=== PATIENT | male | born 1960 | race Caucasian/White ===

== ENCOUNTER 2016-07-02 21:47 | Inpatient (IN) | payer OTHER ==
[~2016-07-02] VITALS: Ht 182.9 cm; Wt 93.0 kg
--- NOTE | 2016-07-02 22:08 | NUR ---
Informed waiting has been performed.
--- NOTE | 2016-07-02 22:08 | NUR ---
TRIAGE: PT TO ER C/C SHAKING CHILLS ON THURSDAY NIGHT INTO THURSDAY. FELT BETTER AND THEN AGAIN FELT SICK AGAIN TODAY. REPORTS ALSO HAD SOME NAUSEA THIS AFTERNOON. DR HOPSON INTO TRIAGE TO EVAL PATIENT.
--- NOTE | 2016-07-02 22:10 | ED AMS/SEIZURE/WEAK/DIZZY ---
History of Present Illness General Chief Complaint: General Adult Stated Complaint: BODY ACHES, CHILLS Source: patient, family Exam Limitations: no limitations Vital Signs & Intake/Output Vital Signs & Intake/Output Vital Signs Date Time Temp Pulse Resp B/P Pulse O2 O2 Flow FiO2 Ox Delivery Rate 07/03 0527 97.2 94 20 116/73 97 Room Air 07/03 0030 100.0 07/03 0030 100.0 116 16 106/55 93 Room Air 07/02 2240 101.6 07/02 2204 99.8 135 20 129/75 95 Room Air ED Intake and Output 07/03 0000 07/02 1200 Intake Total Output Total Balance Patient 205 lb Weight Allergies Coded Allergies: No Known Allergies (07/02/16) Reconcile Medications No Known Home Medications Triage Note: TRIAGE: PT TO ER C/C SHAKING [place]ILLS ON THURSDAY NIGHT INTO THURSDAY. FELT BETTER AND THEN AGAIN FELT SICK AGAIN TODAY. REPORTS ALSO HAD SOME NAUSEA THIS AFTERNOON. DR HERNANDEZ INTO TRIAGE TO EVAL PATIENT. Triage Nurses Notes Reviewed? yes Onset: Gradual Duration: hour(s):, waxing and waning Timing: recent history Injury Environment: home Severity: moderate Modifying Factors: Improves With: rest. Associated Symptoms: rigors, chills HPI: 55 yo gentleman presents with nausea, rigors, shaking chills, "in my whole body" that started yesterday. He noted that he was able to work over the weekend without problem. He shares that he has no fever, phlegm, sputum, chest pain. He had transient dyspnea, " I felt body aches all over." Past History Travel History Traveled to [place] past 21 day No Medical History Any Pertinent Medical History? 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 No Review of Systems Review of Systems Constitutional: Reports: no symptoms. EENTM: Reports: no symptoms. Respiratory: Reports: no symptoms. Cardiovascular: Reports: no symptoms. GI: Reports: no symptoms. Genitourinary: Reports: no symptoms. Musculoskeletal: Reports: no symptoms. Skin: Reports: no symptoms. Neurological/Psychological: Reports: no symptoms. Hematologic/Endocrine: Reports: no symptoms. Immunologic/Allergic: Reports: no symptoms. All Other Systems: Reviewed and Negative Physical Exam Physical Exam General Appearance: well developed/nourished, no apparent distress Head: atraumatic, normal appearance Eyes: Bilateral: normal appearance. Ears, Nose, Throat: normal pharynx, normal ENT inspection Neck: normal inspection, supple, full range of motion Respiratory: normal breath sounds, chest non-tender, no respiratory distress, quiet respiration, lungs clear Cardiovascular: regular rate/rhythm Gastrointestinal: normal bowel sounds, soft, non-tender, no organomegaly Rectal: normal exam, normal rectal tone, heme negative stool Back: normal inspection Extremities: normal range of motion Neurologic/Psych: no motor/sensory deficits, awake, alert, oriented x 3 Skin: intact, normal color, warm/dry Core Measures ACS in differential dx? No CVA/TIA Diagnosis: No Severe Sepsis Present: No Septic Shock Present: No Progress Differential Diagnosis: viral syndrome, mi, pneumonia vs other. Plan of Care: Orders Procedure Date/time Status CBC WITHOUT DIFFERENTIAL 07/04 599 Active BASIC ELECTROLYTES PLUS BUN&CR 07/04 599 Active Nothing by Mouth 07/03 B Active PROTHROMBIN TIME 07/03 599 Active HEPATIC FUNCTION PANEL 07/03 599 Active HEPATITIS PANEL 07/03 06 Active LACTIC ACID 07/03 0557 Active US-LIMITED ABDOMEN 07/03 0257 Active LACTIC ACID 07/03 0257 Complete ECHOCARDIOGRAM 07/03 0257 Active CULTURE,URINE 07/03 0247 Active BLOOD CULTURE 07/03 0247 Active URINALYSIS 07/03 0247 Active TRC EVALUATION (GEN) 07/03 0208 Active Saline Lock 07/03 0208 Active Pathway - chart 07/03 0208 Active House Staff 07/03 0208 Active Code Status 07/03 0208 Active Add-on Test (ER Only) 07/03 0141 Active Patient Data 07/03 0125 Active Saline Lock 07/03 106 Active Misc Message 07/03 106 Active ED Holding Orders 07/03 106 Active Vital Signs 07/03 106 Active Code Status 07/03 0107 Complete Admit to inpatient 07/03 0106 Active Add-on Test (ER Only) 07/03 0031 Active Lab Add-on Test 07/03 UNK Active VTE Mechanical Prophylaxis 07/03 UNK Active Vital Signs 07/03 UNK Active Intake & Output 07/03 UNK Active Intake & Output 07/02 2249 Active PARTIAL THROMBOPLASTIN TIME 07/02 2224 Complete PROTHROMBIN TIME 07/02 2224 Complete THYROID STIMULATING HORMONE 07/02 2222 Active GLYCOSYLATED HGB 07/02 2222 Active GAMMA GLUTAMYL TRANSFERASE 07/02 2222 Active FREE T4 07/02 2222 Active ETHANOL 07/02 2222 Active DIRECT BILIRUBIN 07/02 2222 Active RAPID VIRAL INFLUENZA A 07/02 2208 Complete TROPONIN LEVEL 07/02 2208 Active D-DIMER 07/02 2208 Complete COMPREHENSIVE METABOLIC PANEL 07/02 2208 Active CBC WITHOUT DIFFERENTIAL 07/02 2208 Complete EKG 07/02 2208 Active Current Medications Sig/Santiago Start time Last Medication Dose Stop Time Status Admin Ibuprofen 600 MG Q6P PRN 07/03 214 AC (Motrin) Oxycodone HCl 10 MG Q6P PRN 07/03 214 AC (Roxicodone) Laboratory Tests 07/03/166: Lactic Acid 2.1 07/02/162224: PT 14.2 H, INR 1.36 H, APTT 28, D-Dimer 3017 H, CBC w Diff NO MAN DIFF REQ, RBC 4.84, MCV 97.2 H, MCH 32.9 H, RDW 12.6, MPV 7.4, Gran % 90.5 H, Lymphocytes % 2.4 L, Monocytes % 7.0, Eosinophils % 0, Basophils % 0.1, Absolute Granulocytes 11.8 H, Absolute Lymphocytes 0.3 L, Absolute Monocytes 0.9 H, Absolute Eosinophils 0, Absolute Basophils 0, PUBS MCHC 33.8 07/02/162222: Hemoglobin A1c Pending 07/02/162222: Anion Gap 13, Estimated GFR 53 L, BUN/Creatinine Ratio 12.1, Glucose 259 H, Calcium 8.8, Total Bilirubin 2.3 H, Direct Bilirubin 1.6 H, GGT 360 H, AST 427 H, ALT 358 H, Alkaline Phosphatase 131 H, Troponin I < 0.01, Total Protein 6.6, Albumin 3.7, Globulin 2.9, Albumin/Globulin Ratio 1.3, TSH Pending, Free T4 Pending, Serum Alcohol < 10.0 Microbiology 07/03 424 BLOOD: Blood Culture - RECD 07/03 0416 BLOOD: Blood Culture - RECD 07/03 0247 URINE ROUT: Urine Culture - COLB Diagnostic Imaging: Viewed by Me: Radiology Read, CT Scan. Discussed w/RAD: Radiology Read, CT Scan. Radiology Impression: ct angio chest... no pE, abd/pelvic ct... duodenal diverticuli, gall stones, no sign of inflammation... full report below. CXR Impression: no acute abnormality, no infiltrates, normal size heart, normal mediastinum Initial ED EKG: sinus tach Comments: PATIENT: LALIT ALMARAZ PRESENT AGE: 55 PATIENT ACCOUNT NO: [id number] : 61 LOCATION: ER ORDERING PHYSICIAN: VALENTINA HERNANDEZ MD SERVICE DATE: 07/02/16 EXAM TYPE: CAT - CT ABD & PELVIS W IV CONTRAST EXAMINATION: CT ABDOMEN AND PELVIS WITH CONTRAST CLINICAL INFORMATION: Fever. Elevated LFTs. Dyspnea. Positive d-dimer. COMPARISON: None. TECHNIQUE: Multidetector volumetric imaging was performed of the abdomen and pelvis before and after the IV administration of 93 mL of Optiray 320 intravenous contrast. Sagittal and coronal reformatted images were obtained on the technologist's workstation. DLP: 1130 mGy-cm. FINDINGS: LUNG BASES: Mild dependent atelectasis. LIVER, GALLBLADDER, AND BILIARY TREE: The liver is normal in size, shape, and attenuation. No focal hepatic lesion or biliary ductal dilatation is present. Small gallstones are multiple gallstones are present in the gallbladder, measuring up to 1.1 cm in diameter. Gallbladder is otherwise unremarkable. No acute inflammatory changes are identified. PANCREAS: Normal SPLEEN: Unremarkable. ADRENAL GLANDS: Unremarkable. KIDNEYS AND URETERS: The kidneys are normal in size, shape, and attenuation. A few parapelvic cysts are present in the left kidney. No suspicious focal lesions are identified. Minimal perinephric stranding. No hydronephrosis, hydroureter, or calculi seen. BLADDER: Unremarkable. GASTROINTESTINAL TRACT: Stomach, small bowel, and colon are normal in caliber. No bowel wall thickening or surrounding inflammatory changes are identified. Appendix is normal. There is a 2.5 cm diverticulum at the medial aspect of the second portion of the duodenum. No additional diverticula are identified at the duodenum. ABDOMINAL WALL: No significant hernia is appreciated. LYMPH NODES: Normal. VASCULAR: Unremarkable. PELVIC VISCERA: Central calcifications are present in the prostate gland. Prostate and seminal vesicles are otherwise unremarkable. OSSEOUS STRUCTURES: There is mild to moderate degenerative disc disease in the lower lumbar spine. No acute fracture or malalignment. IMPRESSION: 1. No acute intra-abdominal or intrapelvic abnormalities. There is cholelithiasis, though without CT findings of acute cholecystitis. Consider correlation with ultrasound if there is additional clinical concern for gallbladder disease as ultrasound would be more sensitive for early findings of cholecystitis. 2. A duodenal diverticulum. No acute bowel findings. DICTATED BY: CHAUNCEY DAVIS MD DATE/TIME DICTATED:07/03/166 TOBACCO CLASSER:HUEY DATE/TIME TRANSCRIBED:07/03/166 CONFIDENTIAL, DO NOT COPY WITHOUT APPROPRIATE AUTHORIZATION. <Electronically signed in Other Vendor System> SIGNED BY: CHAUNCEY DAVIS MD 07/03/16 0028 PATIENT: LALIT ALMARAZ PRESENT AGE: 55 PATIENT ACCOUNT NO: [id number] : 61 LOCATION: [facility] ORDERING PHYSICIAN: VALENTINA HERNANDEZ MD SERVICE DATE: 07/02/16 EXAM TYPE: CAT - CTA CHEST-PULMONARY EMBOLISM EXAMINATION: CT ANGIOGRAM OF THE CHEST WITH AND WITHOUT CONTRAST (CT PULMONARY ANGIOGRAM FOR PE) CLINICAL INFORMATION: Fever. Elevated LFTs. Dyspnea. Positive d-dimer. COMPARISON: No pertinent prior studies are available for comparison. TECHNIQUE: Prior to contrast administration, noncontrast localization images were obtained. Subsequently, multidetector volumetric imaging was performed from the thoracic inlet to below the diaphragms following the administration of 93 mL Optiray 08/30/2019 intravenous contrast. Examination is limited due to bolus timing. The concentration of contrast material within the pulmonary arteries is relatively dilute, limiting sensitivity and specificity for segmental and subsegmental emboli. No contrast reaction reported Sagittal, coronal, and MIP oblique sagittal reformatted images were obtained on the CT workstation, uploaded to PACS, and reviewed. Total exam dose-length product 1129 mGy-cm FINDINGS: PULMONARY ARTERIES: There is an acute filling defect within the pulmonary artery at the medial basilar segment of the right lower lobe, best seen on image 328/470 series 3. This is most compatible with an acute pulmonary embolism. No additional emboli are identified. As noted above, sensitivity for small peripheral emboli within the segmental and subsegmental branches is limited. No large central pulmonary emboli. Pulmonary arteries are normal in caliber. THORACIC AORTA: No aneurysm or dissection. LUNG: Linear atelectasis is present in the lower lobes. No consolidation, bronchiectasis, or stone focal pulmonary nodules. PLEURA: No pleural effusion or pneumothorax. MEDIASTINUM: Normal heart size. No pericardial effusion. No hilar or mediastinal lymphadenopathy. No evidence of septal bowing or right heart strain. CHEST WALL/AXILLA: No axillary or internal mammary lymphadenopathy. OSSEOUS STRUCTURES: Mild multilevel degenerative spondylosis. Bridging osteophytes are present in the lower thoracic spine. No acute fractures. UPPER ABDOMEN: Cholelithiasis is again noted. No reflux of contrast into the hepatic veins to suggest elevated right heart pressures. IMPRESSION: Acute segmental pulmonary embolism in the medial basilar segment of the right lower lobe. No additional emboli. Sensitivity for small peripheral emboli is limited by study technique. No evidence of elevated right heart pressures. VTE: positive This critical result was discussed by telephone with Dr. Hernandez at 12:30 AM on 07/03/2016 . DICTATED BY: CHAUNCEY DAVIS MD DATE/TIME DICTATED:07/03/1623 TOBACCO CLASSER:HUEY DATE/TIME TRANSCRIBED:07/03/1623 CONFIDENTIAL, DO NOT COPY WITHOUT APPROPRIATE AUTHORIZATION. <Electronically signed in Other Vendor System> SIGNED BY: CHAUNCEY DAVIS MD 07/03/1637 PATIENT: LALIT ALMARAZ PRESENT AGE: 55 PATIENT ACCOUNT NO: [id number] : 62 LOCATION: [facility] ORDERING PHYSICIAN: VALENTINA HERNANDEZ MD SERVICE DATE: 07/02/16 EXAM TYPE: RAD - XRY-PORTABLE CHEST XRAY EXAMINATION: XR PORTABLE CHEST CLINICAL INFORMATION: Fever and chills. COMPARISON: None. TECHNIQUE: Portable view of the chest was obtained. FINDINGS: No significant abnormality is noted involving the heart, lungs, mediastinum, bony thorax or soft tissues. IMPRESSION: No acute change of the chest. DICTATED BY: RASHAAD VELASQUEZ MD DATE/TIME DICTATED:07/02/162326 TOBACCO CLASSER:BEARD DATE/TIME TRANSCRIBED:07/02/162326 CONFIDENTIAL, DO NOT COPY WITHOUT APPROPRIATE AUTHORIZATION. <Electronically signed in Other Vendor System> SIGNED BY: RASHAAD VELASQUEZ MD 07/02/16 4428 Departure Departure Disposition: STILL A PATIENT Condition: Stable Clinical Impression Primary Impression: Pulmonary emboli Secondary Impressions: Acute hepatitis Referrals: HUI THOMAS MD (PCP/Family) Departure Forms: Customer Survey General Discharge Information Prescriptions: Current Visit Scripts No Known Home Medications Comments discussed with dr. mendez (surgical attending) who will evaluate patient this am. Critical Care Note Critical Care Note Critical Care Time: 30-74 min
[2016-07-02 22:33] LABS: ABSOLUTE BASOPHIL COUNT 0 /CUMM (0.0-0.2); ABSOLUTE EOSINOPHIL COUNT 0 /CUMM (0.0-0.7); ABSOLUTE GRANULOCYTE CT 11.8 /CUMM (1.4-6.5); ABSOLUTE LYMPH COUNT 0.3 /CUMM (1.2-3.4); ABSOLUTE MONOCYTE COUNT 0.9 /CUMM (0.10-0.60); BASOPHIL % 0.1 % (0.0-2.0); EOSINOPHIL % 0 % (0-5); MEAN CORPUSCULAR HGB 32.9 PG (27.0-31.0); MEAN CORPUSCULAR HGB CONC 33.8 G/DL (33.0-37.0); MEAN CORPUSCULAR VOLUME 97.2 FL (80.0-94.0); MEAN PLATELET VOLUME 7.4 FL (7.4-10.4); PLATELET COUNT 172 /CUMM (130-400); RBC DISTRIBUTION WIDTH 12.6 % (11.5-14.5); RED BLOOD CELL CT 4.84 /CUMM (4.70-6.10); WHITE BLOOD CELL COUNT 13.1 /CUMM (4.8-10.8)
--- NOTE | 2016-07-02 22:39 | NUR ---
TEMP RECHECK 101.6 FLU SWAB OBTAINED/SENT TO LAB PT MEDICATED WITH IBUPROFEN PER ORDERS DR HOPSON.
--- NOTE | 2016-07-02 22:48 | NUR ---
APPRECIATE TRIAGE NOTE. PT TO ROOM 9 VIA STRETCHER FROM [facility]. INFORMED WAITING PERFORMED.
[2016-07-02 23:01] LABS: GRANULOCYTE % 90.5 % (42.2-75.2)
--- NOTE | 2016-07-02 23:31 | RADIOLOGY REPORT ---
EXAMINATION: XR PORTABLE CHEST CLINICAL INFORMATION: Fever and chills. COMPARISON: None. TECHNIQUE: Portable view of the chest was obtained. FINDINGS: No significant abnormality is noted involving the heart, lungs, mediastinum, bony thorax or soft tissues. IMPRESSION: No acute change of the chest.
--- NOTE | 2016-07-02 23:34 | NUR ---
PT LEFT FOR CAT SCAN
--- NOTE | 2016-07-03 00:10 | NUR ---
RETD FROM CT
--- NOTE | 2016-07-03 00:28 | NUR ---
DENIES ANY PAIN OR DISCOMFORT. NS UP WO IV TYLENOL UP.
--- NOTE | 2016-07-03 00:28 | CT SCAN REPORT ---
EXAMINATION: CT ABDOMEN AND PELVIS WITH CONTRAST CLINICAL INFORMATION: Fever. Elevated LFTs. Dyspnea. Positive d-dimer. COMPARISON: None. TECHNIQUE: Multidetector volumetric imaging was performed of the abdomen and pelvis before and after the IV administration of 93 mL of Optiray 320 intravenous contrast. Sagittal and coronal reformatted images were obtained on the technologist's workstation. DLP: 1130 mGy-cm. FINDINGS: LUNG BASES: Mild dependent atelectasis. LIVER, GALLBLADDER, AND BILIARY TREE: The liver is normal in size, shape, and attenuation. No focal hepatic lesion or biliary ductal dilatation is present. Small gallstones are multiple gallstones are present in the gallbladder, measuring up to 1.1 cm in diameter. Gallbladder is otherwise unremarkable. No acute inflammatory changes are identified. PANCREAS: Normal SPLEEN: Unremarkable. ADRENAL GLANDS: Unremarkable. KIDNEYS AND URETERS: The kidneys are normal in size, shape, and attenuation. A few parapelvic cysts are present in the left kidney. No suspicious focal lesions are identified. Minimal perinephric stranding. No hydronephrosis, hydroureter, or calculi seen. BLADDER: Unremarkable. GASTROINTESTINAL TRACT: Stomach, small bowel, and colon are normal in caliber. No bowel wall thickening or surrounding inflammatory changes are identified. Appendix is normal. There is a 2.5 cm diverticulum at the medial aspect of the second portion of the duodenum. No additional diverticula are identified at the duodenum. ABDOMINAL WALL: No significant hernia is appreciated. LYMPH NODES: Normal. VASCULAR: Unremarkable. PELVIC VISCERA: Central calcifications are present in the prostate gland. Prostate and seminal vesicles are otherwise unremarkable. OSSEOUS STRUCTURES: There is mild to moderate degenerative disc disease in the lower lumbar spine. No acute fracture or malalignment. IMPRESSION: 1. No acute intra-abdominal or intrapelvic abnormalities. There is cholelithiasis, though without CT findings of acute cholecystitis. Consider correlation with ultrasound if there is additional clinical concern for gallbladder disease as ultrasound would be more sensitive for early findings of cholecystitis. 2. A duodenal diverticulum. No acute bowel findings.
--- NOTE | 2016-07-03 00:38 | CT SCAN REPORT ---
EXAMINATION: CT ANGIOGRAM OF THE CHEST WITH AND WITHOUT CONTRAST (CT PULMONARY ANGIOGRAM FOR PE) CLINICAL INFORMATION: Fever. Elevated LFTs. Dyspnea. Positive d-dimer. COMPARISON: No pertinent prior studies are available for comparison. TECHNIQUE: Prior to contrast administration, noncontrast localization images were obtained. Subsequently, multidetector volumetric imaging was performed from the thoracic inlet to below the diaphragms following the administration of 93 mL Optiray 08/30/2019 intravenous contrast. Examination is limited due to bolus timing. The concentration of contrast material within the pulmonary arteries is relatively dilute, limiting sensitivity and specificity for segmental and subsegmental emboli. No contrast reaction reported Sagittal, coronal, and MIP oblique sagittal reformatted images were obtained on the CT workstation, uploaded to PACS, and reviewed. Total exam dose-length product 1129 mGy-cm FINDINGS: PULMONARY ARTERIES: There is an acute filling defect within the pulmonary artery at the medial basilar segment of the right lower lobe, best seen on image 328/470 series 3. This is most compatible with an acute pulmonary embolism. No additional emboli are identified. As noted above, sensitivity for small peripheral emboli within the segmental and subsegmental branches is limited. No large central pulmonary emboli. Pulmonary arteries are normal in caliber. THORACIC AORTA: No aneurysm or dissection. LUNG: Linear atelectasis is present in the lower lobes. No consolidation, bronchiectasis, or stone focal pulmonary nodules. PLEURA: No pleural effusion or pneumothorax. MEDIASTINUM: Normal heart size. No pericardial effusion. No hilar or mediastinal lymphadenopathy. No evidence of septal bowing or right heart strain. CHEST WALL/AXILLA: No axillary or internal mammary lymphadenopathy. OSSEOUS STRUCTURES: Mild multilevel degenerative spondylosis. Bridging osteophytes are present in the lower thoracic spine. No acute fractures. UPPER ABDOMEN: Cholelithiasis is again noted. No reflux of contrast into the hepatic veins to suggest elevated right heart pressures. IMPRESSION: Acute segmental pulmonary embolism in the medial basilar segment of the right lower lobe. No additional emboli. Sensitivity for small peripheral emboli is limited by study technique. No evidence of elevated right heart pressures. VTE: positive This critical result was discussed by telephone with Dr. Hernandez at 12:30 AM on 07/03/2016 .
[2016-07-03 01:06] LABS: PT 14.2 SEC (9.4-12.5); PTT 28 SEC (25-37)
--- NOTE | 2016-07-03 01:51 | History & Physical ---
FLORECITA ALSTON MD 07/03/16 0150: General Information and HPI MD Statement: I have seen and personally examined LALIT ALMARAZ and documented this H&P. The patient is a 55 year old M who presented with a patient stated chief complaint of [fever,chills,nausea]. Source of Information: patient Exam Limitations: no limitations History of Present Illness: 55-year-old male with no PMH, presented to the ED for chills and nausea. On Thursday night around 3am, he started having chills that lasted until 5am. He did not go to work on Thursday and took dayquil and nyquil. He was feeling sluggish all day, and thought he had the flu. He also had soreness and stiffness in his joints including his back, shoulders, legs. On Thursday, he went to work, and when he got off work around 5pm, he started having nausea, and chills. Denied vomiting and has tolerated food well all day. On , he denies fever at home (but did not take his temp), but does feel hot intermittently (he was shirtless when we examined him and was comfortable that way), denies any yellowing of the eyes, chest pain, palpitations, shortness of breath, cough, pleuritic chest pain, abdominal pain, vomiting, diarrhea, constipation, changes in stool, blood in stool, soniya colored stool, dark urine, leg swelling, leg pain. He does have a bruise over the medial side of his left thigh because the TV fell on him last week. He weighed 240 lbs a year ago and has lost 30 lbs intentionally through a change in his diet. He had colonoscopy done 2 years ago and is normal in findings. No significant family history. Denies history of heart disease, or clots in the family. 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 He lives in [place] with his and 12-year-old son. He does not smoke, and denies illicit drug use. He drinks alcohol ocassionally. He has no allergies and not on any meds. In the ED his max temp was 101.6, pulse up to 135, rr 16-20, bp 106-129/55-75, and satting at 93% on RA. Allergies/Medications Allergies: Coded Allergies: No Known Allergies (07/02/16) Home Med list No Known Home Medications Past History Travel History Traveled to [place] past 21 day No Medical History Neurological: NONE EENT: NONE Cardiovascular: NONE Respiratory: NONE Gastrointestinal: NONE Hepatic: NONE Renal: NONE Musculoskeletal: NONE Psychiatric: NONE Endocrine: NONE Blood Disorders: NONE Cancer(s): NONE RESEARCH PROGRAM MANAGER/Reproductive: NONE Surgical History Surgical History: TONSILLECTOMY Past Family/Social History Psychosocial History Where do you live? Home Who Do You Live With? spouse, child Services at Home: None Primary Language: Upper Sorbian Smoking Status: Never Smoked ETOH Use: occasional use Illicit Drug Use: denies illicit drug use Functional Ability ADLs Independent: dressing, eating, toileting, bathing. Ambulation: independent IADLs Independent: shopping, housework, finances, food prep, telephone, transportation , medication admin. Review of Systems Review of Systems Constitutional: Reports: chills, fever. EENTM: Denies: visual changes. Cardiovascular: Denies: chest pain, edema, palpitations. Respiratory: Denies: cough, hemoptysis, orthopnea, short of breath. GI: Reports: nausea. Denies: abdominal pain, bloating, constipation, diarrhea, bloody stool, changes in stool, vomiting. Genitourinary: Denies: dysuria. Exam & Diagnostic Data Last 24 Hrs of Vital Signs/I&O Vital Signs Date Time Temp Pulse Resp B/P Pulse O2 O2 Flow FiO2 Ox Delivery Rate 07/03 0030 100.0 07/03 0030 100.0 116 16 106/55 93 Room Air 07/02 2240 101.6 07/02 2204 99.8 135 20 129/75 95 Room Air Intake & Output 07/03 0800 07/03 0000 07/02 1600 Intake Total Output Total Balance Patient 92.986 kg Weight Physical Exam General Appearance Alert, Oriented X3, Cooperative, No Acute Distress Skin healing bruise approximately 10 cm in diameter over medial left thigh HEENT Atraumatic, PERRLA, EOMI, dry mucous membrane , mild scleral icterus, digna face Neck Supple, No JVD, +2 Carotid Pulse wo Bruit, No LAD Lymphatic Axillary nl, Cervical nl Cardiovascular Regular Rate, Normal S1, Normal S2, No Murmurs, Gallops, Rubs Lungs Clear to Auscultation, Normal Air Movement Abdomen Normal Bowel Sounds, Soft, No Tenderness, No Hepatospenomegaly, No Masses, de la cruz negative Neurological Normal Speech, Normal Tone Extremities No Edema, Normal Pulses, No Tenderness/Swelling Vascular Normal Pulses Last 24 Hrs of Labs/Contreras: Laboratory Tests 07/02/162224: PT 14.2 H, INR 1.36 H, APTT 28, D-Dimer 3017 H, CBC w Diff NO MAN DIFF REQ, RBC 4.84, MCV 97.2 H, MCH 32.9 H, RDW 12.6, MPV 7.4, Gran % 90.5 H, Lymphocytes % 2.4 L, Monocytes % 7.0, Eosinophils % 0, Basophils % 0.1, Absolute Granulocytes 11.8 H, Absolute Lymphocytes 0.3 L, Absolute Monocytes 0.9 H, Absolute Eosinophils 0, Absolute Basophils 0, PUBS MCHC 33.8 07/02/162222: Anion Gap 13, Estimated GFR 53 L, BUN/Creatinine Ratio 12.1, Glucose 259 H, Calcium 8.8, Total Bilirubin 2.3 H, Direct Bilirubin 1.6 H, AST 427 H, ALT 358 H, Alkaline Phosphatase 131 H, Troponin I < 0.01, Total Protein 6.6, Albumin 3.7, Globulin 2.9, Albumin/Globulin Ratio 1.3 Microbiology 07/03 246 URINE ROUT: Urine Culture - ORD 07/03 246 BLOOD: Blood Culture - ORD 07/03 246 BLOOD: Blood Culture - ORD Diagnostic Data CXR Results CXR: No acute change of the chest. Other Results Chest CTA Acute segmental pulmonary embolism in the medial basilar segment of the right lower lobe. No additional emboli. Sensitivity for small peripheral emboli is limited by study technique. No evidence of elevated right heart pressures. Abd CT IMPRESSION: 1. No acute intra-abdominal or intrapelvic abnormalities. There is cholelithiasis, though without CT findings of acute cholecystitis. Consider correlation with ultrasound if there is additional clinical concern for gallbladder disease as ultrasound would be more sensitive for early findings of cholecystitis. 2. A duodenal diverticulum. No acute bowel findings. Assessment/Plan Assessment: 55-year-old male with no PMH, presented to the ED for chills and nausea, found to have acute PE on CTA along with choleliathiasis without cholecystitis, with abnormal LFTs including AST, ALT, alk phos, direct bilirubin, total bilirubin, and white count. # Acute PE - Bruise on medial left thigh from trauma last week. He might have used that extremity less. * Continue heparin * Echocardiogram * Doppler of BL lower extremity * heme consult placed for possible coagulopathy * Consider pulm consult in am * Consider cardio consult in am # ? Ascending cholangitis. Choleliathiasis with fever, chills and leukocytosis of 13.1, with abnormal LFTs worrisome for acute cholangitis * ED consulted surgery and they recommended RUQ US. Reconsult surgery in am if necessary * IV abx with unasyn * lactate level 2.1 * GI consult placed # Abnormal kidney functions most likely due to dehydration - BUN/Cr 18/1.4 (previous cr 1) * IV fluids NS 500ml bolus and followed by maintenance at 150ml/hr as pt NPO for US Diet: NPO (pending US RUQ) DVT ppx: IV heparin FULL CODE As Ranked By This Provider Problem List: 1. Pulmonary embolism 2. Transaminitis Core Measures/Miscellaneous Acute Coronary Syndrome ACS Diagnosis: No Cerebrovascular Accident CVA/TIA Diagnosis: No Congestive Heart Failure CHF Diagnosis: No Venous Thromboembolism VTE Risk Factors: Acute medical illness, Age > 40 VTE Prophylaxis Ordered Inpt: Mech & Pharm No Mech VTE prophylaxis d/t: No contraindications No VTE Pharm Prophylaxis d/t: No contraindications VTE Diagnosis: Yes VTE Type: Pulmonary Embolism VTE Confirmed by (Test): CT CHEST ANGIOGRAM Severe Sepsis Severe Sepsis Present: No Septic Shock Septic Shock Present: No Miscellaneous Documentation Attending Case Discussed With: ASHLEY LEMUS MD Primary Care Physician: HUI THOMAS MD Patient sees these Specialists none Level of Patient Care: Telemetry ARSEN COHEN 07/03/16 0441: Resident Review Statement Resident Statement: examined this patient, discussed with internet architect, agreed with internet architect, reviewed EMR data (avail), reviewed images, amended to note Other Findings: This is 55-year-old male with no PMH, presented to the ED for chills and nausea. On Thursday night around 3am, he started to have fever, chills, feeling nauseated, that is also associated with joint and back pain. The patient stated the symptoms subside on the morning, and on next day he started to have some chills and feeling tired so he stayed home laying in his couch all day. Patient stated that he ate today without any problems. Patient reports large but was in his left lower extremity status post trauma by his TV. He denies any yellowing of the eyes, chest pain, palpitations, shortness of breath, cough, pleuritic chest pain, abdominal pain, vomiting, diarrhea, constipation, changes in stool, blood in stool, soniya colored stool, dark urine, lower extremity swelling or pain. Patient had a recorded fever In the ED with maximum of 101.6, slightly borderline blood pressure and tachycardia, patient in room air. Physical examination, lab and imaging as above. Problem list: -Unprovoked pulmonary embolism -Choleliathiasis /cholangitis -Fever, chills and leukocytosis that could be due to PE versus Choleliathiasis / cholangitis -Transaminitis, hyperbilirubinemia -Acute kidney injury most likely due to dehydration -Pseudo-Hyponatremia due to hyperglycemia Plan: -Admit patient to telemetry floor -Vitals every shift -Continue the patient heparin drip -Start the patient on IV fluid hydration -We'll start the patient on IV Unasyn -Blood culture, urine culture and urine analysis -Keep the patient nothing by mouth -Abdominal ultrasound -Gastroenterology and surgery consultation -Echocardiogram, check TSH and HA1c -Trend lactic acid, Trend the patient LFTs -Repeat CBC and basic panel electrolytes in the morning, INR -Hematology consultation in a.m. -Pain pathway -DVT prophylaxis on heparin drip -Full code ASHLEY LEMUS 07/03/16 0739: Attending MD Review Statement Attending Statement Attending MD Statement: examined this patient, discuss w/resident/PA/ASSISTANT FEDERAL PUBLIC DEFENDER, agreed w/resident/PA/ASSISTANT FEDERAL PUBLIC DEFENDER, reviewed EMR data (avail), reviewed images, amended to note Attending Assessment/Plan: CC: Chills/rigors nausea PMHX : None, not on any medications Patient comes with symptoms of severe chills, rigors associated with nausea. Patient had one episode yesterday, he took some Tylenol and rested at home. He went to work today, but after returning he had an episode of chills where he had to take 2-3 blankets, was followed by feeling warm. It was associated with nausea, no vomiting, no chest pain. Patient denies any abdominal pain, sputum production, urinary symptoms, skin rashes and reactions. No loss of consciousness. 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 Vitals: T max 101.6, tachycardia, RR, BP, O2 saturation within acceptable range. On exam a O 3, anxious but comfortable, neck supple, no lymphadenopathy, mucosa dry, no JVD RS: Clear air entry bilaterally present. Abdomen: Soft, NT, ND, no rebound, no De La Cruz sign, bowel sounds decreased. CVS: S1-S2, RRR. Neurologically intact, no obvious skin rashes or inflammations. He has a bruise on left thigh on medial aspect (trauma) Labs: WBC 13.1, neutrophils 90%, glucose 259, creatinine 1.4, anion gap 13, alkaline phosphatase 131, AST 427, ALT 358, bilirubin 2.3, direct bilirubin 1.6 CTA shows acute segmental pulmonary embolism in medial basilar segment of right lower lobe CT abdomen and pelvis with IV contrast: Small gallstones are multiple gallstones are present in the gallbladder, measuring up to 1.1 cm in diameter. Gallbladder is otherwise unremarkable. o bowel wall thickening or surrounding inflammatory changes are identified. Appendix is normal. There is a 2.5 cm diverticulum at the medial aspect of the second portion of the duodenum. A and P #1 sepsis: Patient has fever, leukocytosis, elevated transaminases, elevated bilirubin. De La Cruz's sign negative but CT abdomen shows evidence of cholelithiasis, CT not being the best test, obtain ultrasound abdomen right upper quadrant to rule out any cholecystitis, CBD dilatation. Get blood cultures , urine cultures, continue hydration with normal saline, start Unasyn, trend lactate. No other source of infection identified on complete ROS. Check GGT, alcohol level #2 acute segmental PE on right side: This appears to be unprovoked, detailed history did not provide any inciting factors. Currently on heparin, obtain 2-D echo in a.m., to rule out cardiac strain. I could not discuss oral anticoagulation plan with patient during night, should be addressed in a.m. ER suggested telemetry monitoring for given PE, if no acute events may be transferred to [facility] according to clinical assessment. #3 creatinine 1.4: Baseline not known, may have some volume contraction related to infection, continue gentle hydration, repeat BMP in a.m. #4 hyperglycemia: Blood glucose 259, patient does not have any history of diabetes. Sepsis can increase blood sugar but check hemoglobin A1c to rule out diabetes. #5 surgery was consulted in ER for duodenal diverticulum. #6 continue adequate pain management with pain pathway.
--- NOTE | 2016-07-03 04:25 | NUR ---
N/S 500 ML BOLUS GIIVEN BLD CULTURES X 2 DRAWN AND SENT
--- NOTE | 2016-07-03 05:08 | NUR ---
UNASYN 3 GM HUNG
--- NOTE | 2016-07-03 05:12 | NUR ---
CRITICAL TEST RESULTS [id number] LALIT ALMARAZ 55 M TESTS AND RESULTS: LACTIC ACID 2.1 Results received and read back by: TONJA LARA Results received date and time: 07/03/16 0512 The following provider was notified of the results, and read the results back: ATTENDING Notified date and time: 07/03/16 at 0500
--- NOTE | 2016-07-03 06:39 | PN- Housestaff ---
PORFIRIO KUMARDANA 07/03/16 0639: Subjective Follow-up For: -PE -choledocolithiasis s/p stent placement. Complaints: no complaints Subjective: I have seen and examined the patient today morning, he is stable , no abdominal pain, he is NPO for ERCP, GI on board. Review of Systems Constitutional: Reports: see HPI. Denies: chills, diaphoresis, fever, malaise, weakness. EENTM: Denies: blurred vision, double vision, visual changes, eye pain, eye drainage, eye tearing. Cardiovascular: Denies: chest pain, edema, orthopena, palpitations. Respiratory: Denies: cough, hemoptysis, orthopnea, short of breath, sputum production. Gastrointestinal: Denies: abdominal pain, bloating, constipation, diarrhea, distention. Genitourinary: Reports: no symptoms. Musculoskeletal: Reports: no symptoms. Objective Last 24 Hrs of Vital Signs/I&O Vital Signs Date Time Temp Pulse Resp B/P Pulse O2 O2 Flow FiO2 Ox Delivery Rate 07/03 0527 97.2 94 20 116/73 97 Room Air 07/03 0030 100.0 07/03 0030 100.0 116 16 106/55 93 Room Air 07/02 2240 101.6 07/02 2204 99.8 135 20 129/75 95 Room Air Intake & Output 07/03 0800 07/03 0000 07/02 1600 Intake Total Output Total Balance Patient 92.986 kg Weight Physical Exam General Appearance: Alert, Oriented X3, Cooperative, No Acute Distress Skin: No Rashes, No Breakdown, no jaundice HEENT: Atraumatic, PERRLA, EOMI Neck: Supple, No JVD, No thryomegaly Cardiovascular: Regular Rate, Normal S1, Normal S2, No Murmurs Lungs: Clear to Auscultation, Normal Air Movement Abdomen: Normal Bowel Sounds, Soft, No Tenderness Neurological: Strength at 5/5 X4 Ext, Normal Tone, Sensation Intact, Cranial Nerves 3-12 NL Extremities: No Clubbing, No Cyanosis, No Edema, Normal Pulses Vascular: Normal Pulses Current Medications: Current Medications Sig/Santiago Start time Last Medication Dose Route Stop Time Status Admin Acetaminophen 0 .STK-MED ONE 07/03 0024 DC IV Acetaminophen 1,000 MG ONCE ONE 07/02 2330 DC 01/05 N/A 1 UNIT IV 07/02 2344 0030 Ampicillin Sodium/ 0 .STK-MED ONE 07/03 0500 DC Sulbactam Sodium .ROUTE Ampicillin Sodium/ 0 .STK-MED ONE 07/03 0442 DC Sulbactam Sodium .ROUTE Ampicillin Sodium/ 3,000 MG Q6H 07/03 0330 AC 07/03 Sulbactam Sodium IV 0508 Sodium Chloride 100 ML Heparin Sodium 4,000 UNIT ONCE ONE 07/03 0115 DC 07/03 (Porcine) IV 07/03 011 0118 Heparin Sodium 0 .STK-MED ONE 07/03 0110 DC (Porcine) .ROUTE Heparin Sodium/ 25,000 UNIT Q24H 07/03 0045 AC 07/03 Dextrose IV 0120 Dextrose/Water 500 ML Ibuprofen 600 MG Q6P PRN 07/03 0215 AC PO Ibuprofen 800 MG ONCE ONE 07/02 2245 DC 07/02 PO 07/02 224 2239 Ibuprofen 0 .STK-MED ONE 07/02 2237 DC PO Oxycodone HCl 10 MG Q6P PRN 07/03 0215 AC PO Sodium Chloride 500 ML BOLUS ONE 07/03 0330 DC 07/03 IV 07/03 0429 0434 Sodium Chloride 1,000 ML .Q6H40M 07/03 0200 AC 07/03 IV 0508 Sodium Chloride 1,000 ML BOLUS ONE 07/02 2330 DC 07/03 IV 07/03 0029 0030 Last 24 Hrs of Lab/Contreras Results Last 24 Hrs of Labs/Mics: Laboratory Tests 07/03/16 0416: Lactic Acid 2.1 07/02/162224: PT 14.2 H, INR 1.36 H, APTT 28, D-Dimer 3017 H, CBC w Diff NO MAN DIFF REQ, RBC 4.84, MCV 97.2 H, MCH 32.9 H, RDW 12.6, MPV 7.4, Gran % 90.5 H, Lymphocytes % 2.4 L, Monocytes % 7.0, Eosinophils % 0, Basophils % 0.1, Absolute Granulocytes 11.8 H, Absolute Lymphocytes 0.3 L, Absolute Monocytes 0.9 H, Absolute Eosinophils 0, Absolute Basophils 0, PUBS MCHC 33.8 07/02/16 222: Hemoglobin A1c Pending 07/02/162222: Anion Gap 13, Estimated GFR 53 L, BUN/Creatinine Ratio 12.1, Glucose 259 H, Calcium 8.8, Total Bilirubin 2.3 H, Direct Bilirubin 1.6 H, GGT 360 H, AST 427 H, ALT 358 H, Alkaline Phosphatase 131 H, Troponin I < 0.01, Total Protein 6.6, Albumin 3.7, Globulin 2.9, Albumin/Globulin Ratio 1.3, TSH 0.634, Free T4 1.50, Serum Alcohol < 10.0 Microbiology 07/035 BLOOD: Blood Culture - RECD 07/03 415 BLOOD: Blood Culture - RECD 07/03 024 URINE ROUT: Urine Culture - COLB Lines/Diet/Fluids Restraints: none Assessment/Plan Assessment: This is a 55 YO male who came in last night i.e 07/02/2015 with chief complaint of chills and rigor associated with some nausea on and off since four days prior to admission. He was febrile till 101.6 on presentation, otherwise stable, didnot have any abdominal pain, tenderness or guarding, white coutn of 13.1, elevated LFT's and GGT, ricky - 2.3, direct - 1.6 and was found ot have unprovoked PE in medical basilar segment ,alognwith dialted CBD on CT scan with gallstones. Problem List alongwith assesement and plan #1 Fever + chills + white count + elevated lft's,most likely 2/[address] iv unasyn ct monitoring cbc, bep and lft's GI consult appreciated. Patient is NPO for ERCP in the afternoon and would most likely have stent placement. continue monitoring closely for signs of any sepsis. Will obtain b/l lower extremtiy venous doppler ot rule out DVT and ultrasoung doppler of the portal vein to rule out thrombosis. #2 acute segmental PE on right side: -unprovoked, etiology unknown. No known risk factors for PE. Will dopple b/l lower extremtiy to rule out DVT. Hematology consult appreciated. hypercoagulabilty work up as outpatient. plan for abdominal dopple in am to rule out protal vein thromobsisi. Continue iv heparin Echo pending to rule out right heart strain. Will discuss PO AC in am depeding on clinical status. #3 creatinine 1.4:Most likely 2/2 to dehydratio 2/2 to sepsis will continue to monitor ct hydration. #4 hyperglycemia:psble 2/2 to infection v/s New onset DM, will check HBa1c DVT Px : heparin FC mild PP Problem List: 1. Pulmonary embolism 2. Transaminitis 3. Acute hepatitis Pain Ratin Pain Location: na Pain Goal: Remain pain free Pain Plan: tyelnol Tomorrow's Labs & Rationales: cbc, bep, lft's LESLI FREGOSO MD 07/03/16 0954: Attending MD Review Statement Attending Statement Attending MD Statement: examined this patient, discuss w/resident/PA/LOCKER OPERATOR, agreed w/resident/PA/LOCKER OPERATOR, discussed with family, discussed with nursing Attending Assessment/Plan: 55-year-old male with no significant past medical history who came in with acute onset of fever and chills and was found to be febrile to 101.6. He had a white count of 13,000 with an elevated total bili of 2.3 and a transaminitis. He also had a CTA done which is positive for PE in his right lung. He has no obvious risk factors for PE. He doesn't appear to have any history suggestive of malignancy, no recent travel or immobilization and no hypercoagulable state in the family. Appreciate hematology evaluation. For now we have him on IV heparin. He is nothing by mouth, on IV Unasyn and an ultrasound is pending to clarify whether this is a cholecystitis. Clinically and at least on exam he doesn't have any right upper quadrant tenderness. Will also get a Doppler ultrasound of his portal vein to rule out portal vein thrombosis and follow-up from there.
--- NOTE | 2016-07-03 07:35 | NUR ---
LABS DRAWN AND SENT AT 0731. SST,BLUE,LAV,WU AND PINK TOP DRAWN.
--- NOTE | 2016-07-03 07:41 | Admission Certification ---
Admission Certification Certification Statement - As attending physician, I certify that at the time of - admission, based on clinical presentation, severity of - symptoms, need for further diagnostic testing and - therapeutic interventions, and risk of adverse outcomes - without in-hospital treatment, in my clinical assessment, - this patient requires an acute hospital stay for a minimum - of two nights or longer. I have also considered psychsocial - factors such as support system, advanced age, financial - issues, cognitive issues, and failed out-patient treatments, - past re-admission history, safety of patient, and lack of - compliance as applicable. Specific rationale supporting this admission is: Acute PE, sepsis
[2016-07-03 08:17] LABS: PT 16.4 SEC (9.4-12.5)
[2016-07-03 08:20] LABS: PTT 102 SEC (25-37)
--- NOTE | 2016-07-03 08:22 | NUR ---
CRITICAL TEST RESULTS [id number] LALIT ALMARAZ 55 M TESTS AND RESULTS: PTT 102 Results received and read back by: MARIA LUISA DYER Results received date and time: 07/03/16 0822 The following provider was notified of the results, and read the results back: DR. KUMAR Notified date and time: 07/03/16 at 0822
--- NOTE | 2016-07-03 08:27 | NUR ---
PTT 102, DR. KUMAR AWARE, HEPARIN STOPPED FOR 1HR PER PROTOCOL. RESIDENTS AT BEDSIDE EVALUATING PATIENT
--- NOTE | 2016-07-03 09:11 | Cons- Hematology ---
General Information and HPI Consulting Request Date of Consult: 07/03/16 Requested By: LESLI FREGOSO MD Reason for Consult: Pulmonary embolism Source of Information: patient, old records Exam Limitations: no limitations History of Present Illness: Mr. Michel is a 55-year-old male without significant medical history who presents to the hospital with chills, nausea, and fatigue. He was in his normal state of health until Thursday when he started having chills. He continues to feel worse and stayed home from work on Thursday. He had increasing fatigue and myalgia. On Thursday, he continues to have chills and nausea. He states he felt hot in addition to the chills. He denies any shortness of breath, chest pain, or abdominal pain. He had no diarrhea or constipation. He was still pretty active. In the ED, he was noted to be febrile up to 101.6 with HR of 135. Imaging with CTA of the chest demonstrated an acute segmental pulmonary embolism in the medial basilar segment of the right lower lobe. CT of the abdomen did not demonstrate any intraabdominal process. He was started on heparin drip. Currently, he denies any issues. He reports no recent travel, prolonged period of immobility, or surgery/procedure. He has no family history of thrombosis, stroke, [place], or miscarriages. Allergies/Medications Allergies: Coded Allergies: No Known Allergies (07/02/16) Home Med List: No Known Home Medications Current Medications: Current Medications Sig/Santiago Start time Last Medication Dose Route Stop Time Status Admin Acetaminophen 0 .STK-MED ONE 07/03 0024 DC IV Acetaminophen 1,000 MG ONCE ONE 07/02 2330 DC 07/03 N/A 1 UNIT IV 07/02 2344 0030 Ampicillin Sodium/ 0 .STK-MED ONE 07/03 0500 DC Sulbactam Sodium .ROUTE Ampicillin Sodium/ 0 .STK-MED ONE 07/03 0442 DC Sulbactam Sodium .ROUTE Ampicillin Sodium/ 3,000 MG Q6H 07/03 0330 AC 07/03 Sulbactam Sodium IV 0508 Sodium Chloride 100 ML Heparin Sodium 4,000 UNIT ONCE ONE 07/03 0115 DC 07/03 (Porcine) IV 07/03 0116 0118 Heparin Sodium 0 .STK-MED ONE 07/03 0110 DC (Porcine) .ROUTE Heparin Sodium/ 25,000 UNIT Q24H 07/03 0045 AC 07/03 Dextrose IV 0120 Dextrose/Water 500 ML Ibuprofen 600 MG Q6P PRN 07/03 0215 AC PO Ibuprofen 800 MG ONCE ONE 07/02 2244 DC 07/02 PO 07/02 2245 2239 Ibuprofen 0 .STK-MED ONE 07/02 2236 DC PO Oxycodone HCl 10 MG Q6P PRN 07/03 0215 AC PO Sodium Chloride 500 ML BOLUS ONE 07/03 0330 DC 07/03 IV 07/03 0429 0434 Sodium Chloride 1,000 ML .Q6H40M 07/03 0200 AC 07/03 IV 0508 Sodium Chloride 1,000 ML BOLUS ONE 07/02 2330 DC 07/03 IV 07/03 0029 0030 Review of Systems Review of Systems Constitutional: Reports: chills, fever, malaise. Denies: weakness, unexplained weight loss. Cardiovascular: Denies: chest pain, orthopena, peripheral edema. Respiratory: Denies: short of breath, sputum production, wheezing. GI: Reports: nausea. Denies: diarrhea, melena, bloody stool. Genitourinary: Denies: dysuria, hematuria. Musculoskeletal: Reports: muscle pain. Neurological/Psychological: Denies: confusion. Hematologic/Endocrine: Denies: bruising, bleeding. Immunologic/Allergic: Denies: lymphadenopathy. 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 Home Who Do You Live With? spouse, child Services at Home: None Primary Language: Telugu Smoking Status: Never Smoked ETOH Use: occasional use Illicit Drug Use: denies illicit drug use Functional Ability ADLs Independent: dressing, eating, toileting, bathing. Ambulation: independent IADLs Independent: shopping, housework, finances, food prep, telephone, transportation , medication admin. Exam & Diagnostic Data Vital Signs and I&O Vital Signs Date Time Temp Pulse Resp B/P Pulse O2 O2 Flow FiO2 Ox Delivery Rate 07/03 526 97.2 94 20 116/73 97 Room Air 07/03 0030 100.0 07/03 0030 100.0 116 16 106/55 93 Room Air 07/02 2240 101.6 07/02 2204 99.8 135 20 129/75 95 Room Air Intake & Output 07/03 1600 07/03 0800 07/03 0000 Intake Total Output Total Balance Patient 92.986 kg Weight Physical Exam General Appearance: alert, awake, comfortable Head: atraumatic, normal appearance Eyes: Bilateral: PERRL. Ears, Nose, Throat: normal pharynx Neck: normal inspection Respiratory: normal breath sounds, chest non-tender, no respiratory distress Cardiovascular: tachycardia Gastrointestinal: normal bowel sounds, soft, non-tender, no organomegaly Extremities: normal inspection, no edema Neurologic/Psych: awake, alert, oriented x 3 Skin: intact, normal color, warm/dry Lymphatic: no anterior cervical ravi Last 48 Hours of Lab Results: Laboratory Tests 07/03 07/03 07/03 07/03 0732 0732 0600 0416 Chemistry Lactic Acid (0.7 - 2.1 mmol/L) 1.7 2.1 Total Bilirubin (0.2 - 1.3 mg/dL) 3.4 H Direct Bilirubin (< 0.4 mg/dL) 2.5 H AST (17 - 59 U/L) 272 H ALT (21 - 72 U/L) 356 H Alkaline Phosphatase (< 127 U/L) 122 Total Protein (6.3 - 8.2 g/dL) 5.6 L Albumin (3.5 - 5.0 g/dL) 2.9 L Coagulation PT (9.4 - 12.5 SEC) 16.4 H Cancelled INR (0.90 - 1.17) 1.57 H Cancelled APTT (25 - 37 SEC) 102 *H Serology Hepatitis A IgM Ab (NONREACTIVE) Pending Hep Bs Antigen (NONREACTIVE) NONREACTIVE Hep B Core IgM Ab Conf (NONREACTIVE) Pending Hepatitis C Antibody (NONREACTIVE) Pending 07/02 07/02 07/02 2225 2223 2223 Chemistry Sodium (137 - 145 mmol/L) 134 L Potassium (3.5 - 5.1 mmol/L) 4.0 Chloride (98 - 107 mmol/L) 95 L Carbon Dioxide (22 - 30 mmol/L) 26 Anion Gap (5 - 16) 13 BUN (9 - 20 mg/dL) 17 Creatinine (0.7 - 1.2 mg/dL) 1.4 H Estimated GFR (>60 ml/min) 53 L BUN/Creatinine Ratio (7 - 25 %) 12.1 Glucose (65 - 99 mg/dL) 259 H Hemoglobin A1c Pending Calcium (8.4 - 10.2 mg/dL) 8.8 Total Bilirubin (0.2 - 1.3 mg/dL) 2.3 H Direct Bilirubin (< 0.4 mg/dL) 1.6 H GGT (15 - 73 U/L) 360 H AST (17 - 59 U/L) 427 H ALT (21 - 72 U/L) 358 H Alkaline Phosphatase (< 127 U/L) 131 H Troponin I (<0.11 ng/ml) < 0.01 Total Protein (6.3 - 8.2 g/dL) 6.6 Albumin (3.5 - 5.0 g/dL) 3.7 Globulin (1.9 - 4.2 gm/dL) 2.9 Albumin/Globulin Ratio (1.1 - 2.2 %) 1.3 TSH (0.270 - 4.200 uIU/mL) 0.634 Free T4 (0.64 - 1.79 ng/dL) 1.50 Coagulation PT (9.4 - 12.5 SEC) 14.2 H INR (0.90 - 1.17) 1.36 H APTT (25 - 37 SEC) 28 D-Dimer (70 - 232 ng/ml) 3017 H Hematology CBC w Diff NO MAN DIFF REQ WBC (4.8 - 10.8 /CUMM) 13.1 H RBC (4.70 - 6.10 /CUMM) 4.84 Hgb (14.0 - 18.0 G/DL) 15.9 Hct (42 - 52 %) 47.0 MCV (80.0 - 94.0 FL) 97.2 H MCH (27.0 - 31.0 PG) 32.9 H RDW (11.5 - 14.5 %) 12.6 Plt Count (130 - 400 /CUMM) 172 MPV (7.4 - 10.4 FL) 7.4 Gran % (42.2 - 75.2 %) 90.5 H Lymphocytes % (20.5 - 51.1 %) 2.4 L Monocytes % (1.7 - 9.3 %) 7.0 Eosinophils % (0 - 5 %) 0 Basophils % (0.0 - 2.0 %) 0.1 Absolute Granulocytes (1.4 - 6.5 /CUMM) 11.8 H Absolute Lymphocytes (1.2 - 3.4 /CUMM) 0.3 L Absolute Monocytes (0.10 - 0.60 /CUMM) 0.9 H Absolute Eosinophils (0.0 - 0.7 /CUMM) 0 Absolute Basophils (0.0 - 0.2 /CUMM) 0 PUBS MCHC (33.0 - 37.0 G/DL) 33.8 Toxicology Serum Alcohol (<10 MG/DL) < 10.0 Imaging/Other Studies: Chest CTA 07/02/2016: Acute segmental pulmonary embolism in the medial basilar segment of the right lower lobe. No additional emboli. Sensitivity for small peripheral emboli is limited by study technique. No evidence of elevated right heart pressures. Abdomen/pelvis CT 07/02/2016: 1. No acute intra-abdominal or intrapelvic abnormalities. There is cholelithiasis, though without CT findings of acute cholecystitis. Consider correlation with ultrasound if there is additional clinical concern for gallbladder disease as ultrasound would be more sensitive for early findings of cholecystitis. 2. A duodenal diverticulum. No acute bowel findings. Assessment/Plan Assessment: Mr. Michel is a 55-year-old male presents with fever, chills, and nausea to the ED and was noted to have RLL pulmonary embolism. In the ED, he was noted to have elevated LFT including bilirubin, elevated WBC, and PE. Etiology of his PE is unclear at the moment. His main risk factor is potentially inflammatory response from infectious etiology given his fever. He has no other risk factors for thrombosis. He may need a hypercoagulable work up done and can be done as an outpatient. Management of the thrombosis would not change at the moment. If he is started on warfarin, protein C and S can be sent prior. He should get evaluated with lower extremity doppler. With regard to his LFT, this may be related to cholithiasis. He may need US of the RUQ. Other potential etiology would be portal thrombosis given his thrombosis history. He is on antibiotic at the moment. Surgery and GI consult is pending. He should be continue on heparin for now and transition to oral if no surgery/ procedure. Recommendations: 1. Doppler ultrasound of lower extremity to evaluate for DVT 2. Hypercoagulabe work up as an outpatient (if starting on warfarin, get protein C and S level prior) 3. Doppler ultrasound of abdomen for elevated LFT 4. Continue anticoagulation and transition to oral anticoagulant 5. Follow up as outpatient Problem List: 1. Pulmonary embolism 2. Transaminitis Other Findings/Comments: Please call [phone] with any questions or concerns Consult Acknowledgment - Thank you for your consult request.
--- NOTE | 2016-07-03 09:39 | NUR ---
HEPARIN DRIP STOPPED X 1 HOUR, RESTARTED AT 16U/KG/HR, CURRENTLY RUNNING AT 23ML/HR. IV UNASYSN 3GM INFUSING WITHOUT DIFFICULTY AT THIS TIME, NS AT 150ML/HR MAINTAINED WITHOUT DIFFICULTY AT THIS TIME. FAMILY REMAINS AT BEDSIDE. PT HAS NO COMPLAINTS AT THIS TIME.
--- NOTE | 2016-07-03 09:53 | ULTRASOUND REPORT ---
EXAMINATION: US ABDOMEN LIMITED CLINICAL INFORMATION: Fever, chills, transaminitis. COMPARISON: None TECHNIQUE: Real-time imaging of the right upper quadrant abdominal viscera. FINDINGS: PANCREAS: Obscured due to overlying bowel gas. LIVER: The liver demonstrates normal size, contour and echogenicity. No focal lesion or intrahepatic biliary duct dilatation. GALLBLADDER: There is a 1.2 cm shadowing calculus in the gallbladder lumen. No abnormal gallbladder wall thickening or pericholecystic fluid. Negative sonographic De La Cruz sign. COMMON BILE DUCT: Measures up to 1.1 cm in diameter distally. RIGHT KIDNEY: No hydronephrosis. No renal calculi or focal parenchymal lesions. The kidney measures 11.2 cm in maximum dimension. FREE FLUID: None. IMPRESSION: 1. Dilated common bile duct measuring up to 1.1 cm in diameter distally. This could be secondary to a distal obstructing lesion or choledocholithiasis. No intrahepatic biliary ductal dilatation. Consider further assessment with MRCP or ERCP. 2. Cholelithiasis without additional sonographic findings of cholecystitis.
--- NOTE | 2016-07-03 11:09 | NUR ---
SPOKE WITH GI NURSE X 2 THIS AM, "ERCP AROUND 2:30PM, CAN STAY ON THE HEPARIN DRIP, I WILL CALL WITH A DEFINITE TIME, OR WHEN WE ARE GOING TO SEND FOR HIM". NPO MAINTAINED. PT HAS NO COMPLAINTS AT THIS TIME. REMAINS AT BEDSIDE.
--- NOTE | 2016-07-03 11:23 | NUR ---
PT AMBULATORY TO BATHROOM, GAIT STABLE.
--- NOTE | 2016-07-03 11:45 | NUR ---
PT ADMITTED TO ROOM 174-2 ROOM NOT READY AT THIS TIME
--- NOTE | 2016-07-03 12:50 | Cons- Gastroenterology ---
General Information and HPI Consulting Request Date of Consult: 07/03/16 Requested By: LESLI FREGOSO MD Reason for Consult: Increased LFTs, gallstones, rule out cholangitis; nausea. Source of Information: patient Exam Limitations: no limitations History of Present Illness: Mr. Michel is a 55 year old male with no significant previous medical history who presented to [facility] night with complaints of nausea and fevers. He has been having chills and nausea with myalgias and arthraglias on Thursday. He has not have any abdominal pain or vomiting. He was able to go to work on Thursday, but his chills and nausea persisted Thursday night and into so he came to the ER for further evaluation. He has been having normal bowel movements without any brbpr, melena, diarrhea, constipation or soniya colored stool. He hasn't had any abdominal pain over the past week, but he does note that he has had intermittent RUQ pain over the past several years that was exacerbated by eating fatty foods. In the ED he was febrile and had abnormal LFTs. He was started on IV unasyn and given tylenol for the fever with defervesence. He was also noted to have a markedly elevated D-Dimer and a cta showed that he had a pulmonary embolism for which he has been started on IV heparin. Allergies/Medications Allergies: Coded Allergies: No Known Allergies (07/02/16) Home Med List: Ciprofloxacin HCl (Cipro) 500 MG TABLET 1 TAB PO BID GALL BLADDER INFECTION Enoxaparin Sodium (Lovenox) 40 MG/0.4 ML SYRINGE 140 MG SC DAILY BLOOD THINNER Warfarin Sodium (Coumadin) 5 MG TABLET 1 TAB PO DAILY BLOOD THINNER Current Medications: Current Medications Sig/Santiago Start time Last Medication Dose Route Stop Time Status Admin Acetaminophen 0 .STK-MED ONE 07/03 0024 DC IV Acetaminophen 1,000 MG ONCE ONE 07/02 2330 DC 07/03 N/A 1 UNIT IV 07/024 0030 Ampicillin Sodium/ 0 .STK-MED ONE 07/03 0500 DC Sulbactam Sodium .ROUTE Ampicillin Sodium/ 0 .STK-MED ONE 07/03 0442 DC Sulbactam Sodium .ROUTE Ampicillin Sodium/ 3,000 MG Q6H 07/03 0330 AC 07/03 Sulbactam Sodium IV 0930 Sodium Chloride 100 ML Heparin Sodium 4,000 UNIT ONCE ONE 07/03 0115 DC 07/03 (Porcine) IV 07/03 0116 0118 Heparin Sodium 0 .STK-MED ONE 07/03 0110 DC (Porcine) .ROUTE Heparin Sodium/ 25,000 UNIT Q24H 07/03 0045 AC 07/03 Dextrose IV 0120 Dextrose/Water 500 ML Ibuprofen 600 MG Q6P PRN 07/03 0215 DC PO Ibuprofen 800 MG ONCE ONE 07/02 2245 DC 07/02 PO 07/02 2245 2239 Ibuprofen 0 .STK-MED ONE 07/02 2237 DC PO Oxycodone HCl 10 MG Q6P PRN 07/03 0215 AC PO Sodium Chloride 500 ML BOLUS ONE 07/03 0330 DC 07/03 IV 07/03 0429 0434 Sodium Chloride 1,000 ML .Q6H40M 07/03 0200 AC 07/03 IV 0931 Sodium Chloride 1,000 ML BOLUS ONE 07/02 2330 DC 07/03 IV 07/03 0029 0030 Past History Travel History Traveled to [place] past 21 day No Medical History Neurological: NONE EENT: NONE Cardiovascular: NONE Respiratory: NONE Gastrointestinal: NONE Hepatic: NONE Renal: NONE Musculoskeletal: NONE Psychiatric: NONE Endocrine: NONE Blood Disorders: NONE 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 Home Who Do You Live With? spouse, child Services at Home: None Primary Language: Polish Smoking Status: Never Smoked ETOH Use: occasional use Illicit Drug Use: denies illicit drug use Functional Ability ADLs Independent: dressing, eating, toileting, bathing. Ambulation: independent IADLs Independent: shopping, housework, finances, food prep, telephone, transportation , medication admin. Review of Systems Review of Systems Constitutional: Reports: chills, fever, malaise, weakness. Denies: unexplained weight loss. EENTM: Denies: no symptoms, icterus. Cardiovascular: Denies: no symptoms. Respiratory: Denies: no symptoms. GI: Reports: see HPI. Genitourinary: Denies: no symptoms. Musculoskeletal: Denies: no symptoms. Skin: Denies: no symptoms. Neurological/Psychological: Denies: no symptoms. Hematologic/Endocrine: Denies: no symptoms. Immunologic/Allergic: Denies: no symptoms. All Other Systems: Reviewed and Negative Exam & Diagnostic Data Vital Signs and I&O Vital Signs Date Time Temp Pulse Resp B/P Pulse O2 O2 Flow FiO2 Ox Delivery Rate 07/03 05 97.2 94 20 116/73 97 Room Air 07/03 0030 100.0 07/03 003 100.0 116 16 106/55 93 Room Air 07/02 2240 101.6 07/02 2204 99.8 135 20 129/75 95 Room Air Intake & Output 07/03 040 Intake Total Output Total Balance Patient 205 lb Weight Physical Exam General Appearance: well developed/nourished, no apparent distress, alert, awake Head: atraumatic, normal appearance Eyes: Bilateral: other (sclearal icterus). Ears, Nose, Throat: normal pharynx, normal ENT inspection Neck: normal inspection, supple, full range of motion Respiratory: normal breath sounds, chest non-tender, no respiratory distress Cardiovascular: regular rate/rhythm Gastrointestinal: normal bowel sounds, soft, non-tender Rectal: deferred Back: normal inspection, normal range of motion Extremities: normal inspection, normal capillary refill, no edema Neurologic/Psych: no motor/sensory deficits, awake, alert, oriented x 3 Skin: intact, normal color, warm/dry Results Pertinent Lab Results: Laboratory Tests 07/03 07/03 07/03 07/03 0732 0732 0600 0416 Chemistry Lactic Acid (0.7 - 2.1 mmol/L) 1.7 2.1 Total Bilirubin (0.2 - 1.3 mg/dL) 3.4 H Direct Bilirubin (< 0.4 mg/dL) 2.5 H AST (17 - 59 U/L) 272 H ALT (21 - 72 U/L) 356 H Alkaline Phosphatase (< 127 U/L) 122 Total Protein (6.3 - 8.2 g/dL) 5.6 L Albumin (3.5 - 5.0 g/dL) 2.9 L Coagulation PT (9.4 - 12.5 SEC) 16.4 H Cancelled INR (0.90 - 1.17) 1.57 H Cancelled APTT (25 - 37 SEC) 102 *H Serology Hepatitis A IgM Ab (NONREACTIVE) Pending Hep Bs Antigen (NONREACTIVE) Pending Hep B Core IgM Ab Conf (NONREACTIVE) Pending Hepatitis C Antibody (NONREACTIVE) Pending 07/02 07/02 07/02 2225 2223 2223 Chemistry Sodium (137 - 145 mmol/L) 134 L Potassium (3.5 - 5.1 mmol/L) 4.0 Chloride (98 - 107 mmol/L) 95 L Carbon Dioxide (22 - 30 mmol/L) 26 Anion Gap (5 - 16) 13 BUN (9 - 20 mg/dL) 17 Creatinine (0.7 - 1.2 mg/dL) 1.4 H Estimated GFR (>60 ml/min) 53 L BUN/Creatinine Ratio (7 - 25 %) 12.1 Glucose (65 - 99 mg/dL) 259 H Hemoglobin A1c Pending Calcium (8.4 - 10.2 mg/dL) 8.8 Total Bilirubin (0.2 - 1.3 mg/dL) 2.3 H Direct Bilirubin (< 0.4 mg/dL) 1.6 H GGT (15 - 73 U/L) 360 H AST (17 - 59 U/L) 427 H ALT (21 - 72 U/L) 358 H Alkaline Phosphatase (< 127 U/L) 131 H Troponin I (<0.11 ng/ml) < 0.01 Total Protein (6.3 - 8.2 g/dL) 6.6 Albumin (3.5 - 5.0 g/dL) 3.7 Globulin (1.9 - 4.2 gm/dL) 2.9 Albumin/Globulin Ratio (1.1 - 2.2 %) 1.3 TSH (0.270 - 4.200 uIU/mL) 0.634 Free T4 (0.64 - 1.79 ng/dL) 1.50 Coagulation PT (9.4 - 12.5 SEC) 14.2 H INR (0.90 - 1.17) 1.36 H APTT (25 - 37 SEC) 28 D-Dimer (70 - 232 ng/ml) 3017 H Hematology CBC w Diff NO MAN DIFF REQ WBC (4.8 - 10.8 /CUMM) 13.1 H RBC (4.70 - 6.10 /CUMM) 4.84 Hgb (14.0 - 18.0 G/DL) 15.9 Hct (42 - 52 %) 47.0 MCV (80.0 - 94.0 FL) 97.2 H MCH (27.0 - 31.0 PG) 32.9 H RDW (11.5 - 14.5 %) 12.6 Plt Count (130 - 400 /CUMM) 172 MPV (7.4 - 10.4 FL) 7.4 Gran % (42.2 - 75.2 %) 90.5 H Lymphocytes % (20.5 - 51.1 %) 2.4 L Monocytes % (1.7 - 9.3 %) 7.0 Eosinophils % (0 - 5 %) 0 Basophils % (0.0 - 2.0 %) 0.1 Absolute Granulocytes (1.4 - 6.5 /CUMM) 11.8 H Absolute Lymphocytes (1.2 - 3.4 /CUMM) 0.3 L Absolute Monocytes (0.10 - 0.60 /CUMM) 0.9 H Absolute Eosinophils (0.0 - 0.7 /CUMM) 0 Absolute Basophils (0.0 - 0.2 /CUMM) 0 PUBS MCHC (33.0 - 37.0 G/DL) 33.8 Toxicology Serum Alcohol (<10 MG/DL) < 10.0 Imaging/Other Studies: ct scan: FINDINGS: LUNG BASES: Mild dependent atelectasis. LIVER, GALLBLADDER, AND BILIARY TREE: The liver is normal in size, shape, and attenuation. No focal hepatic lesion or biliary ductal dilatation is present. Small gallstones are multiple gallstones are present in the gallbladder, measuring up to 1.1 cm in diameter. Gallbladder is otherwise unremarkable. No acute inflammatory changes are identified. PANCREAS: Normal SPLEEN: Unremarkable. ADRENAL GLANDS: Unremarkable. KIDNEYS AND URETERS: The kidneys are normal in size, shape, and attenuation. A few parapelvic cysts are present in the left kidney. No suspicious focal lesions are identified. Minimal perinephric stranding. No hydronephrosis, hydroureter, or calculi seen. BLADDER: Unremarkable. GASTROINTESTINAL TRACT: Stomach, small bowel, and colon are normal in caliber. No bowel wall thickening or surrounding inflammatory changes are identified. Appendix is normal. There is a 2.5 cm diverticulum at the medial aspect of the second portion of the duodenum. No additional diverticula are identified at the duodenum. ABDOMINAL WALL: No significant hernia is appreciated. LYMPH NODES: Normal. VASCULAR: Unremarkable. PELVIC VISCERA: Central calcifications are present in the prostate gland. Prostate and seminal vesicles are otherwise unremarkable. OSSEOUS STRUCTURES: There is mild to moderate degenerative disc disease in the lower lumbar spine. No acute fracture or malalignment. IMPRESSION: 1. No acute intra-abdominal or intrapelvic abnormalities. There is cholelithiasis, though without CT findings of acute cholecystitis. Consider correlation with ultrasound if there is additional clinical concern for gallbladder disease as ultrasound would be more sensitive for early findings of cholecystitis. 2. A duodenal diverticulum. No acute bowel findings. Assessment/Plan Assessment/Recommendations: Assesssment: Mr. Michel is a 55 year old male with no significant PMH who presents with fevers and was found to have a PE on a ct angiogram of the chest and also to have increased LFTs with fevers. With gallstones on imaging and intermittent biliary colic the fevers and increased LFTs are likely secondary to cholangitis even though he doesn't have RUQ pain now. His bilirubin this morning is increasing so while he has defervesced on Unasyn an ERCP should be pursued to relieve any obtstruction of his biliary tree. As he has been anticoagulated for the PE a sphincterotomy will not be able to be perfromed, but a stent can still be placed to relieve any obstruction. It is a bit unusual that he doesn't have any abdominal pain that one would expect with passing gallstones, but consdiering the increased LFTs, fevers and gallstones on ct scan cholangitis is still the likely diagnosis. Considering the lack of pain and the PE though an underlying malignancy making him hypercoaguable is possible and should be ruled out although it is encouraging that no obvious pancreatic mass was seen on his ct scan. Recommendations: 1. Keep NPO 2. Continue unasyn 3. Follow up cultures 4. Notify GI for signs of septic shock or any changes in his mental status 5. Will arrange for a therapeutic ERCP with a plan to place a biliary stent for later this afternoon. I will continue to follow this patient and make further recommendations pending the results of the ERCP and his clinical course. Problem List: 1. Pulmonary embolism 2. Transaminitis 3. Acute hepatitis Copies To: HUI THOMAS MD Consult Acknowledgment - Thank you for your consult request.
--- NOTE | 2016-07-03 13:17 | NUR ---
REPORT CALLED TO TELE GENIA WONG CALLED FOR TRANSPORT TO TELE ROOM # [id number].
--- NOTE | 2016-07-03 13:22 | NUR ---
ACCUCHECK: 116. 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
[2016-07-03 14:34] VITALS: BP 124/64
[2016-07-03 15:30] VITALS: BP 118/68
--- NOTE | 2016-07-03 16:21 | Proc Note ERCP ---
ERCP Procedure Procedure Date: 07/03/16 GI Procedure(s): ERCP / stent Electronic Scale Tester: Dayron Mcmanus M.D. ASA Classification: III Indications: Ascending cholangitis (fever, jaundice, gallstones, dilated biliary tree) Instrument: duodenoscope Meds Received: MAC (O2 via mask) Patient's Tolerance: good Complications: none Procedure: The patient signed informed consent, was brought to the operating room, turned into the prone position, and was medicated. Pulse oximetry, blood pressure and cardiac monitoring were performed continuously throughout the procedure. The Olympus high-definition V duodenoscope was inserted into the mouth and advanced to the duodenum. The stomach was not examined. The pylorus and duodenal bulb were normal. The mucosa and folds of the sweep were normal. In the descending duodenum was a periampullary diverticulum, with the papilla at its edge. The pancreatic duct was not cannulated or injected. The common bile duct was cannulated and opacified. The cholangiogram demonstrated mild dilatation of the CBD/CHD, with normal intrahepatic ducts. The cystic duct was opacified. Within the extrahepatic duct were multiple mobile filling defects consistent with stones. Because of the new diagnosis of pulmonary embolus and ongoing anticoagulation, a sphincterotomy was not performed. A 10 Malay/7 cm Cotton-Xiao stent was then inserted, and bile flow was ascertained endoscopically. Impression: * Choledocholithiasis, treated with insertion of an endobiliary stent Recommendations: * Continue intravenous antibiotics, pending culture results * Follow-up liver enzymes * Begin clear liquid diet * Plans regarding stent removal/exchange, and treatment of choledocholithiasis, will depend upon anticoagulation status and will be determined at a later date. CC: WILLIAM SU,AMY MADDOX MD,RASHAAD Conn
[2016-07-03 18:50] LABS: ABSOLUTE BASOPHIL COUNT 0 /CUMM (0.0-0.2); ABSOLUTE EOSINOPHIL COUNT 0.1 /CUMM (0.0-0.7); ABSOLUTE GRANULOCYTE CT 12.2 /CUMM (1.4-6.5); ABSOLUTE LYMPH COUNT 0.8 /CUMM (1.2-3.4); ABSOLUTE MONOCYTE COUNT 1.3 /CUMM (0.10-0.60); BASOPHIL % 0.1 % (0.0-2.0); EOSINOPHIL % 0.5 % (0-5); HEMATOCRIT 42.9 % (42-52); MEAN CORPUSCULAR HGB CONC 33.5 G/DL (33.0-37.0); MEAN CORPUSCULAR VOLUME 98.6 FL (80.0-94.0); MEAN PLATELET VOLUME 8.4 FL (7.4-10.4); PLATELET COUNT 136 /CUMM (130-400); RBC DISTRIBUTION WIDTH 13.3 % (11.5-14.5); RED BLOOD CELL CT 4.35 /CUMM (4.70-6.10); WHITE BLOOD CELL COUNT 14.4 /CUMM (4.8-10.8)
[2016-07-03 18:53] LABS: PTT 82 SEC (25-37)
--- NOTE | 2016-07-03 23:41 | Discharge Summary ---
Visit Information Visit Dates Admission Date: 07/03/16 Discharge Date: 07/07/16 Hospital Course Course Attending Physician: ILDEFONSO SU,LESLI Morales Primary Care Physician: WILLIAM SU,[facility] Hospital Course: This is a 55-year-old male with no significant past medical history came in to [place] emergency department 07/03/2016 with chief complaint of severe chills associated with rigors and nausea, not relieved after taking [id number] Tylenol. On arrival at the emergency department he had a temperature of 101.6, he was tachycardic, rest of the vitals are within normal limits. He was alert and oriented however anxious on presentation Most of physical of the exam was essentially normal except that the bowel sounds were decreased on abdominal exam. He was found to have a white count of 13.1, hyperglycemia is 259, creatinine of 1.4, anion gap of 13, liver function tests were elevated with alkaline phosphatase 131, AST 427, AST 358 and bilirubin 2.3 with direct bilirubin 1.6 He was admitted to the general medicine floor for the treatment of following problems Problem #1 choledocholithiasis associated with cholangitis with gram-negative sepsiss/p ERCP * On presentation he had fever associated with chills, elevated white count and elevated liver function test without any significant abdominal pain or jaundice. * He was started on IV Unasyn. * CT abdomen and pelvis demonstrated cholelithiasis. An abdominal ultrasound demonstrated dilated common bile duct without intrahepatic biliary duct dilatation measuring up to 1.1 cm which was thought to be secondary to distal obstructing lesion or choledocholithiasis. * GI was consulted. * He was found to have gram-negative rods on 2 bottles of one set of blood cultures. * This was thought to be secondary to cholangitis and biliary infection itself. * He underwent ERCP on 07/03/2016 with a 10 Latvian/7 cm Cotton-Xiao stent basement without sphincterotomy secondary to new diagnosis of PE and ongoing anticoagulation. * The day after his ERCP, his bilirubin was elevated however this trended down without any further complication. * His antibiotics were changed to ciprofloxacin and he was discharged on ciprofloxacin to complete entire course of a total of 14 days. * Patient will eventually need gallbladder removal, surgery had seen the patient while in the hospital and he shall follow up with surgery as outpatient for elective cholecystectomy. #2 Acute segmental pulmonary emboli on right side. * There was no known risk factor for pulmonary emboli and this was thought to be unprovoked. * Bilateral lower extremity Doppler ruled out DVT. * Abdominal Doppler was also done in the setting of elevated LFTs to rule out portal vein thrombosis. * Abdominal ultrasound Doppler was within normal limit. * The patient was started on IV heparin for anticoagulation. Hematology was consulted. * There were no active recommendations however the patient will be following up with hematology as outpatient for hypercoagulability workup and the cause for unprovoked PE. * He was transitioned to oral anticoagulant, dosed with Coumadin 5 mg with a target INR between 2 and 3 along with bridging with Lovenox for a total of 6 days. * On discharge, We secure an appointment at the Coumadin clinic on 07/09/2016 - thursday 4 p.m. for INR check which would be followed by his primary care physician with whom we had a conversation informing him about his hospital course and discharge on AC.Coumadin will be adjusted according to the INR. * Meanwhile patient will continue to take the Lovenox 1.5 mg /kg opnce daily for bridging for 4 more days after discharge and continue anticoagulation for at least 6 months. #3 Acute kidney injury. * Creatinine was found to be elevated at 1.4 (baseline 1.0), this was thought to be most likely secondary to dehydration secondary to sepsis. * IV hydration was continued. * It trended back to baseline. #4 Hyperglycemia * This was also thought to be secondary to infection, HbA1c was found to be within normal limits. Allergies: Coded Allergies: No Known Allergies (07/02/16) Significant Procedures: SERVICE DATE: 07/02/16 EXAM TYPE: RAD - XRY-PORTABLE CHEST XRAY FINDINGS: No significant abnormality is noted involving the heart, lungs, mediastinum, bony thorax or soft tissues. IMPRESSION: No acute change of the chest. SERVICE DATE: 07/02/16 EXAM TYPE: CAT - CT ABD & PELVIS W IV CONTRAST IMPRESSION: 1. No acute intra-abdominal or intrapelvic abnormalities. There is cholelithiasis, though without CT findings of acute cholecystitis. Consider correlation with ultrasound if there is additional clinical concern for gallbladder disease as ultrasound would be more sensitive for early findings of cholecystitis. 2. A duodenal diverticulum. No acute bowel findings. SERVICE DATE: 07/02/16 EXAM TYPE: CAT - CTA CHEST-PULMONARY EMBOLISM IMPRESSION: Acute segmental pulmonary embolism in the medial basilar segment of the right lower lobe. No additional emboli. Sensitivity for small peripheral emboli is limited by study technique. No evidence of elevated right heart pressures. SERVICE DATE: 07/03/16- EXAM TYPE: RAD - XRY-ERCP BILIARY & PANCREATIC FINDINGS: The endoscope is seen within the second portion of the duodenum and a wire is extending through the ampulla into the cystic duct and subsequently intrahepatic biliary system. Contrast injected demonstrates filling defects which are likely small air bubbles. A plastic stent is placed. IMPRESSION: Common bile duct stent placement under fluoroscopic guidance. Refer to the operative notes for details. SERVICE DATE: 07/03/16 EXAM TYPE: US - US-LIMITED ABDOMEN IMPRESSION: 1. Dilated common bile duct measuring up to 1.1 cm in diameter distally. This could be secondary to a distal obstructing lesion or choledocholithiasis. No intrahepatic biliary ductal dilatation. Consider further assessment with MRCP or ERCP. 2. Cholelithiasis without additional sonographic findings of cholecystitis. SERVICE DATE: 07/04/16 EXAM TYPE: CARD - ECHOCARDIOGRAM FINDINGS Left Ventricle Normal global left ventricular size, wall thickness, systolic function with no obvious regional wall motion abnormalities. Normal left ventricular ejection fraction visually estimated a>65 %. Normal left ventricular diastolic filling pattern for age. Right Ventricle The right ventricle is normal in size and function. Right Atrium The right atrium is normal in size. Left Atrium Left atrial size at the upper limits of normal. Mitral Valve The mitral valve is normal in structure and function. There is trace mitral regurgitation. Aortic Valve Structurally normal aortic valve without significant sclerosis or stenosis. There is no aortic regurgitation. Tricuspid Valve The tricuspid valve is normal in structure and function. There is trace tricuspid regurgitation. Pulmonary artery systolic pressure is normal. Pulmonic Valve Structurally normal pulmonic valve. There is pulmonic regurgitation. Pericardium Normal pericardium without effusion. No pleural effusion. Great Vessels Normal aortic root dimension. The aortic arch and great vessels are well seen and are normal. CONCLUSIONS No significant valve abnormalities. Normal global left ventricular size, wall thickness, systolic function with no obvious regional wall motion abnormalities. Physiologic valvular regurgitation. Left atrial size at the upper limits of normal. Otherwise normal transthoracic echocardiogram. Elmer Mcmanus M.D. (Electronically Signed) Final Date: 05 July 2016 12:10 MEASUREMENTS (Male / Female) Normal Values 2D ECHO LV Diastolic Diameter PLAX 4.2 cm 4.2 - 5.9 / 3.9 - 5.3 cm LV Systolic Diameter PLAX 2.9 cm 2.1 - 4.0 cm LV Fractional Shortening PLAX 31.0 % 25 - 46 % LV Ejection Fraction 2D Teich 59.0 % IVS Diastolic Thickness 1.0 cm LVPW Diastolic Thickness 1.0 cm LV Relative Wall Thickness 0.5 LVOT Diameter 2.1 cm LA Volume 62.0 cm 18 - 58 / 22 - 52 cm Ascending Aorta Diameter 3.1 cm M-MODE Aortic Root Diameter MM 3.4 cm LA Systolic Diameter MM 2.8 cm 3.0 - 4.0 / 2.7 - 3.8 cm LA Ao Ratio MM 0.8 DOPPLER AV Peak Velocity 137.0 cm/s AV Peak Gradient 7.5 mmHg AV Mean Velocity 97.7 cm/s AV Mean Gradient 4.0 mmHg AV Velocity Time Integral 30.2 cm LVOT Peak Velocity 128.0 cm/s LVOT Peak Gradient 6.6 mmHg AV Area Cont Eq pk 3.2 cm MV Peak Velocity 88.8 cm/s MV Peak Gradient 3.2 mmHg MV Mean Velocity 49.4 cm/s MV Mean Gradient 1.0 mmHg Mitral E Point Velocity 94.8 cm/s Mitral A Point Velocity 93.8 cm/s Mitral E to A Ratio 1.0 MV PHT Velocity 87.4 cm/s MV Deceleration Metcalfe 462.0 cm/s MV Pressure Half Time 56.8 ms MV Area PHT 3.9 cm MV Deceleration Time 130.0 ms PV Peak Velocity 100.0 cm/s PV Peak Gradient 4.0 mmHg LV E' Lateral Velocity 8.7 cm/s Mitral E to LV E' Lateral Ratio 10.9 LV E' Septal Velocity 9.1 cm/s Mitral E to LV E' Septa ratio 1.5 SERVICE DATE: 07/04/16 EXAM TYPE: US - US-ABD/PELV ORGAN DOPPLER IMPRESSION: Normal duplex ultrasound examination of the portal and hepatic veins. SERVICE DATE: 07/04/16 EXAM TYPE: US - US-EXT BILAT VENOUS DOPPLER IMPRESSION: Normal triplex scan without evidence of deep venous thrombosis involving the bilateral lower extremities. Disposition Summary Disposition Principal Diagnosis: 1.Unprovoked pulmonary emboli on Oral AC 2.Choledocolithiasis s/p ERCP with stents. 3.Gram negative Sepsis Additional Diagnosis: 4.RACHEAL 5.Hyperglycemia Discharge Disposition: home or self care Discharge Instructions General Discharge Information Code Status: Full Code Patient's Diet: Regular diet Patient's Activity: As tolerated. Follow-Up Instructions/Appts: Please follow up with your PCP, GI and blood doctor within one to two weeks of discharge. Please continue to take your medicatoins as prescribed. PLEASE CHECK YOUR INR ON 07/09/2016 AND DOSE COUMADIN ACCORDINGLY. PLEASE FOLLOW UP WITH YOUR COUMADIN CLINIC. Medications at Discharge Discharge Medications: Start taking the following new medications: Ciprofloxacin HCl (Cipro) 500 MG TABLET 1 Tablet ORAL TWICE DAILY Days = 10 No Refills Comments: Last Taken: 07/07/15 Time: 10:00 AM Warfarin Sodium (Coumadin) 5 MG TABLET 1 Tablet ORAL DAILY Qty = 60 Refills = 1 Enoxaparin Sodium (Lovenox) 40 MG/0.4 ML SYRINGE 140 Milligram Inject into fatty tissue DAILY Days = 4 No Refills Copies To: WILLIAM SU,HUI; REJI SU,KATHYA Esparza; GIANCARLO SU,SALO; MONISHA SU,MARIANGEL; CARLOS SU,JENNI Attending MD Review Statement Documenting Attending: LESLI FREGOSO MD
[2016-07-04 00:35] VITALS: BP 118/68
[2016-07-04 06:49] VITALS: BP 110/60
[2016-07-04 07:47] LABS: ABSOLUTE BASOPHIL COUNT 0 /CUMM (0.0-0.2); ABSOLUTE EOSINOPHIL COUNT 0.1 /CUMM (0.0-0.7); ABSOLUTE GRANULOCYTE CT 8.2 /CUMM (1.4-6.5); ABSOLUTE LYMPH COUNT 0.7 /CUMM (1.2-3.4); ABSOLUTE MONOCYTE COUNT 1.2 /CUMM (0.10-0.60); BASOPHIL % 0.2 % (0.0-2.0); EOSINOPHIL % 0.6 % (0-5); GRANULOCYTE % 80.3 % (42.2-75.2); HEMATOCRIT 39.8 % (42-52); MEAN CORPUSCULAR HGB 33.4 PG (27.0-31.0); MEAN CORPUSCULAR VOLUME 98.4 FL (80.0-94.0); MEAN PLATELET VOLUME 8.8 FL (7.4-10.4); PLATELET COUNT 126 /CUMM (130-400); RED BLOOD CELL CT 4.04 /CUMM (4.70-6.10); WHITE BLOOD CELL COUNT 10.2 /CUMM (4.8-10.8)
--- NOTE | 2016-07-04 07:57 | PN- Housestaff ---
CHANDLER KUMAR 07/04/16 0757: Subjective Follow-up For: -Unprovoked pulmonary emboli on iv heparin -Choledocolithiasis s/p ERCP with stents. -Gram negative Sepsis Complaints: c/o dry mouth, he is NPO for abdominal doppler today. Subjective: I have seen and examined the patient today, he was lying comfrotably, he was a little dry, otherwise stable, said he felt a little gas but had no obvious abdominal pain. He is NPO for abdominal doppler and will also have b/l lower extremtiy doppler today. Review of Systems Constitutional: Reports: see HPI. EENTM: Denies: blurred vision, double vision, visual changes, eye pain. Cardiovascular: Denies: chest pain, edema, orthopena, palpitations. Respiratory: Denies: cough, hemoptysis, orthopnea, short of breath. Gastrointestinal: Reports: bloating, distention, nausea. Denies: abdominal pain, constipation, diarrhea, bowel incontinence, melena, bloody stool, changes in stool, vomiting, steatorrhea. Genitourinary: Denies: discharge, dysuria, frequency, hematuria, hesitation. Musculoskeletal: Reports: no symptoms. Skin: Reports: no symptoms. Neurological/Psychological: Reports: no symptoms. Hematologic/Endocrine: Reports: no symptoms. Immunologic/Allergic: Reports: no symptoms. Objective Last 24 Hrs of Vital Signs/I&O Vital Signs Date Time Temp Pulse Resp B/P Pulse O2 O2 Flow FiO2 Ox Delivery Rate 07/04 0649 98.8 88 15 110/60 Room Air 07/04 0035 100.0 96 18 118/68 95 Room Air 07/04 0000 93 Room Air 07/03 1530 98.3 89 20 118/68 93 Room Air 07/03 1434 124/64 07/03 1402 Room Air 07/03 1129 86 20 126/78 97 Room Air Room Air 07/03 1036 97.2 07/03 1036 97.2 Intake & Output 07/04 1600 07/04 0800 07/04 0000 Intake Total 1184 2024 Output Total Balance 1184 2024 Intake, IV 784 1384 Intake, Oral 400 640 Number 0 Bowel Movements Physical Exam General Appearance: Alert, Oriented X3, Cooperative, No Acute Distress Skin: No Rashes, No Breakdown HEENT: Atraumatic, PERRLA, EOMI Neck: Supple, No JVD, No thryomegaly Lymphatic: no lad Cardiovascular: Regular Rate, Normal S1, Normal S2, No Murmurs Lungs: Clear to Auscultation, Normal Air Movement Abdomen: Normal Bowel Sounds, Soft, No Tenderness Neurological: Normal Speech, Strength at 5/5 X4 Ext, Normal Tone, Sensation Intact Extremities: No Clubbing, No Cyanosis, No Edema, Normal Pulses Vascular: Normal Pulses Current Medications: Current Medications Sig/Santiago Start time Last Medication Dose Route Stop Time Status Admin Ampicillin Sodium/ 3,000 MG Q6H 07/03 0330 AC 07/04 Sulbactam Sodium IV 0329 Sodium Chloride 100 ML Benzocaine 1 SHAMIKA .STK-MED ONE 07/04 0759 DC TOP 07/04 0800 Fentanyl Citrate 100 MCG .STK-MED ONE 07/03 1446 DC IM 07/03 1447 Heparin Sodium/ 25,000 UNIT Q24H 07/03 0045 07/04 Dextrose IV 0051 Dextrose/Water 500 ML Ibuprofen 600 MG Q6P PRN 07/03 0215 WI PO Iopamidol 1 ML .STK-MED ONE 07/04 0759 DC IV 07/04 0800 Lidocaine 2 SHAMIKA .STK-MED ONE 07/04 0759 DC TOP 07/04 0800 Midazolam HCl 5 MG .STK-MED ONE 07/03 1446 DC IM 07/03 1447 Oxycodone HCl 10 MG Q6P PRN 07/03 0215 PO Sodium Chloride 1,000 ML .[id number] 07/03 0200 AC 07/03 IV 1721 Last 24 Hrs of Lab/Contreras Results Last 24 Hrs of Labs/Mics: Laboratory Tests 07/04/16 0609: Sodium Pending, Potassium Pending, Chloride Pending, Carbon Dioxide Pending, Anion Gap Pending, BUN Pending, Creatinine Pending, BUN/Creatinine Ratio Pending , Total Bilirubin Pending, Direct Bilirubin Pending, AST Pending, ALT Pending, Alkaline Phosphatase Pending, Total Protein Pending, Albumin Pending, APTT Pending, CBC w Diff Pending, WBC Pending, RBC Pending, Hgb Pending, Hct Pending, MCV Pending, MCH Pending, RDW Pending, Plt Count Pending, MPV Pending, PUBS MCHC Pending 07/03/16 1750: Anion Gap 11, Estimated GFR > 60, BUN/Creatinine Ratio 16.7, APTT 82 H, CBC w Diff NO MAN DIFF REQ, RBC 4.35 L, MCV 98.6 H, MCH 33.0 H, RDW 13.3, MPV 8.4, Gran % 85.0 H, Lymphocytes % 5.7 L, Monocytes % 8.7, Eosinophils % 0.5, Basophils % 0.1, Absolute Granulocytes 12.2 H, Absolute Lymphocytes 0.8 L, Absolute Monocytes 1.3 H, Absolute Eosinophils 0.1, Absolute Basophils 0, PUBS MCHC 33.5 Lines/Diet/Fluids Restraints: none Assessment/Plan Assessment: This is a 55 YO male who came in last night i.e 07/02/2015 with chief complaint of chills and rigor associated with some nausea on and off since four days prior to admission. He was febrile till 101.6 on presentation, otherwise stable, didnot have any abdominal pain, tenderness or guarding, white count of 13.1, elevated LFT's and GGT, ricky - 2.3, direct - 1.6 and was also found to have unprovoked PE in basilar segment ,alongwith dialted CBD on CT scan with gallstones.He is s/p ERCP with stent today. Problem List alongwith assesement and plan #1 Fever + chills + white count + elevated lft's 2/2 to choledocolithiasis with biliary obstruction s/p ERCP with stent placement Doing better, afebrile overnight, tolerated clear liquid diet well postercp. ct iv unasyn, will switch to PO antibiotics augmentin BID tmrw, if patient reamins stable. ct monitoring cbc, bep and lft's, bilirubin slightly elevated today, will continue to monitor closely with GI, if bilirubin worsens from here on, patient might need repeat ERCP, however if trends down and patient continues to be stable as he is now, likely anticipated discharge sat v/s thursday as per GI. GI consult appreciated. Abdominal doppler ruled out any portal vein thrombosis B/L lower extremity doppler today to rule out DVT. continue monitoring closely for signs of any sepsis. consider eventual GB removal. #2 Acute segmental PE on right side: Unprovoked, etiology unknown. No known risk factors for PE. Await dopple b/l lower extremtiy to rule out DVT today. Hematology consult appreciated. hypercoagulabilty work up as outpatient. Continue iv heparin, once patient bilrubin is trending down he will need to switched to PO AC namely coumadin 5 mg daily with INR monitoring.He will also need bridging with lovenox for first 5 to 6 days , he will need atleast 3 to 6 months of AC,duration to be determined as per hematology. Echo still pending to rule out right heart strain ( no vascular technologist available) Patient will follow up with hematology as OP for further determination of cause of unprovoked PE and hypercoagulability work up. #3 Gram Negative sepsis Patient was found to have gram negative rods on 2 bottles of one set of blood culutres. continue to follow cultures untill final results. Ct iv unasyn for now monitor white count/signs for sepsis closely. Can eventual switch to PO augmentin for a total of 10 to 12 days. #3 Mild RACHEAL Creatinine back to baseline. Resolved with hydration. Pt tolerating diet fine. will dc fluids. #4 hyperglycemia: Sugar WNL, 116 and 85 HbA1c 6.4 Will discuss lifestyle modifications. DVT Px : heparin FC mild PP Problem List: 1. Pulmonary embolism 2. Transaminitis 3. Choledocholithiasis 4. S/P ERCP Pain Ratin Pain Location: NA Pain Goal: Remain pain free Pain Plan: mild : motrin severe : oxycodone Tomorrow's Labs & Rationales: cbc. lft's Discharge Plan Discharge Disposition: home Stable for Discharge? No LESLI FREGOSO MD 07/04/16 0951: Attending MD Review Statement Attending Statement Attending MD Statement: examined this patient, discuss w/resident/PA/HEALTH TYPE TECHNICIAN, agreed w/resident/PA/HEALTH TYPE TECHNICIAN, reviewed EMR data (avail), discussed with nursing, discussed with case mgmt Attending Assessment/Plan: Patient is feeling okay. He tolerated his liquid diet. He has no shortness of breath or abdominal pain. Is a 55-year-old male who is here with gram-negative sepsis. His blood cultures are growing gram-negative rods. A biliary origin with acute cholangitis. He status post an ERCP yesterday. I am concerned that his bili has gone up slightly to 4.1 although his transaminases are coming down nicely. Continue the IV Unasyn and will clarify with GI. He was also noted to have a right lower lobe PE. Dr. Carter has seen him and Dr. Oakley from the hematology service. 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 Once cleared by GI we'll start him on Coumadin.
[2016-07-04 08:21] LABS: PTT 65 SEC (25-37)
--- NOTE | 2016-07-04 08:29 | Patient Discharge Instructions ---
Discharge Instructions General Discharge Information You were seen/treated for: gallstone and pulmonary emboli You had these procedures: ERCP Special Instructions: Please follow up with your PCP, GI and blood doctor within one to two weeks of discharge. Please continue to take your medicatoins as prescribed. PLEASE CHECK YOUR INR ON 07/09/2016 AND DOSE COUMADIN ACCORDINGLY. PLEASE FOLLOW UP WITH YOUR COUMADIN CLINIC. Diet Continue normal diet: No Recommended Diet: Low Fat Acute Coronary Syndrome Inclusion Criteria At DC or during hospital stay patient has or had the following: ACS DIAGNOSIS No Discharge Core Measures Meds if any: Prescribed or Continued at Discharge Meds if any: NOT Prescribed or Continued at Discharge Congestive Heart Failure Inclusion Criteria At DC or during hospital stay patient has or had the following: CHF DIAGNOSIS No Discharge Core Measures Meds if any: Prescribed or Continued at Discharge Meds if any: NOT Prescribed or Continued at Discharge Cerebrovascular accident Inclusion Criteria At DC or during hospital stay patient has or had the following: CVA/TIA Diagnosis No Discharge Core Measures Meds if any: Prescribed or Continued at Discharge Meds if any: NOT Prescribed or Continued at Discharge Venous thromboembolism Inclusion Criteria VTE Diagnosis Yes VTE Type Pulmonary Embolism VTE Confirmed by (Test) CT CHEST ANGIOGRAM Discharge Core Measures - Per Current guidelines, there needs to be overlap - treatment for the first 5 days of Warfarin therapy. - If discharged on Warfarin prior to 5 days of - overlap therapy, the patient will need to be - assessed for post discharge needs including - *Post discharge parental anticoagulation - *Warfarin and/or parental anticoagulation education - *Follow up date to check INR post discharge At least 5 days overlap therapy as Inpatient No Why was Parental Med stopped oral AC Meds if any: Prescribed or Continued at Discharge Note: Overlap Therapy is Warfarin and Anticoagulant Meds if any: NOT Prescribed or Continued at Discharge
--- NOTE | 2016-07-04 08:32 | PN- Hematology ---
Subjective Subjective: He denies any pain this morning. He underwent ERCP by Dr. Mcmanus with stent placement yesterday. Cultures are negative so far. He continues to have a low grade fever. Review of Systems: Constitutional: Reports: low grade fever. Denies: weakness, unexplained weight loss. Chills. Cardiovascular: Denies: chest pain, orthopena, peripheral edema. Respiratory: Denies: short of breath, sputum production, wheezing. GI: Reports: nausea. Denies: diarrhea, melena, bloody stool. Genitourinary: Denies: dysuria, hematuria. Musculoskeletal: Reports: muscle pain. Neurological/Psychological: Denies: confusion. Hematologic/Endocrine: Denies: bruising, bleeding. Immunologic/Allergic: Denies: lymphadenopathy. All Other Systems: Reviewed and Negative Objective Vital Signs and I&Os Vital Signs Date Time Temp Pulse Resp B/P Pulse O2 O2 Flow FiO2 Ox Delivery Rate 07/04 0649 98.8 88 15 110/60 Room Air 07/04 0035 100.0 96 18 118/68 95 Room Air 07/04 0000 93 Room Air 07/03 1530 98.3 89 20 118/68 93 Room Air 07/03 1434 124/64 07/03 1402 Room Air 07/03 1129 86 20 126/78 97 Room Air Room Air 07/03 1036 97.2 07/03 1036 97.2 Intake & Output 07/04 1600 07/04 0800 07/04 0000 07/03 1600 07/03 0800 07/03 0000 Intake Total 1184 2024 500 Output Total Balance 1184 2024 500 Intake, IV 784 1384 500 Intake, Oral 400 640 Number 0 Bowel Movements Patient 92.986 kg 92.986 kg Weight Physical Exam: General Appearance: alert, awake, comfortable Head: atraumatic, normal appearance Ears, Nose, Throat: normal pharynx Respiratory: normal breath sounds, chest non-tender, no respiratory distress Cardiovascular: tachycardia Gastrointestinal: normal bowel sounds, soft, non-tender, no organomegaly Extremities: normal inspection, no edema Neurologic/Psych: awake, alert, oriented x 3 Skin: intact, normal color, warm/dry Lymphatic: no anterior cervical ravi Current Medications: Current Medications Sig/Santiago Start time Last Medication Dose Route Stop Time Status Admin Ampicillin Sodium/ 3,000 MG Q6H 07/03 0330 AC 07/04 Sulbactam Sodium IV 0329 Sodium Chloride 100 ML Benzocaine 1 SHAMIKA .STK-MED ONE 07/04 758 DC TOP 07/04 08 Fentanyl Citrate 100 MCG .STK-MED ONE 07/03 144 DC IM 07/03 144 Heparin Sodium/ 25,000 UNIT Q24H 07/03 0045 AC 07/04 Dextrose IV 0051 Dextrose/Water 500 ML Ibuprofen 600 MG Q6P PRN 07/03 214 DC PO Iopamidol 1 ML .STK-MED ONE 07/04 758 DC IV 07/04 08 Lidocaine 2 SHAMIKA .STK-MED ONE 07/04 758 DC TOP 07/04 08 Midazolam HCl 5 MG .STK-MED ONE 07/03 144 DC IM 07/03 144 Oxycodone HCl 10 MG Q6P PRN 07/03 214 PO Sodium Chloride 1,000 ML .[id number] 07/03 0200 AC 07/03 IV 1721 Results Last 24 Hours of Lab Results: Laboratory Tests 07/04 07/03 0609 1750 Chemistry Sodium (137 - 145 mmol/L) 138 138 Potassium (3.5 - 5.1 mmol/L) 3.3 L 4.0 Chloride (98 - 107 mmol/L) 104 103 Carbon Dioxide (22 - 30 mmol/L) 22 24 Anion Gap (5 - 16) 12 11 BUN (9 - 20 mg/dL) 14 15 Creatinine (0.7 - 1.2 mg/dL) 1.0 0.9 Estimated GFR (>60 ml/min) > 60 > 60 BUN/Creatinine Ratio (7 - 25 %) 14.0 16.7 Total Bilirubin (0.2 - 1.3 mg/dL) 4.1 H Direct Bilirubin (< 0.4 mg/dL) 3.2 H AST (17 - 59 U/L) 126 H ALT (21 - 72 U/L) 232 H Alkaline Phosphatase (< 127 U/L) 95 Total Protein (6.3 - 8.2 g/dL) 4.9 L Albumin (3.5 - 5.0 g/dL) 2.5 L Coagulation APTT (25 - 37 SEC) Pending 82 H Hematology CBC w Diff Pending NO MAN DIFF REQ WBC (4.8 - 10.8 /CUMM) Pending 14.4 H RBC (4.70 - 6.10 /CUMM) Pending 4.35 L Hgb (14.0 - 18.0 G/DL) Pending 14.4 Hct (42 - 52 %) Pending 42.9 MCV (80.0 - 94.0 FL) Pending 98.6 H MCH (27.0 - 31.0 PG) Pending 33.0 H RDW (11.5 - 14.5 %) Pending 13.3 Plt Count (130 - 400 /CUMM) Pending 136 MPV (7.4 - 10.4 FL) Pending 8.4 Gran % (42.2 - 75.2 %) 85.0 H Lymphocytes % (20.5 - 51.1 %) 5.7 L Monocytes % (1.7 - 9.3 %) 8.7 Eosinophils % (0 - 5 %) 0.5 Basophils % (0.0 - 2.0 %) 0.1 Absolute Granulocytes (1.4 - 6.5 /CUMM) 12.2 H Absolute Lymphocytes (1.2 - 3.4 /CUMM) 0.8 L Absolute Monocytes (0.10 - 0.60 /CUMM) 1.3 H Absolute Eosinophils (0.0 - 0.7 /CUMM) 0.1 Absolute Basophils (0.0 - 0.2 /CUMM) 0 PUBS MCHC (33.0 - 37.0 G/DL) Pending 33.5 Recent Imaging Studies: ERCP 07/03/2016: choledocholithiasis, endobiliary stent placement Assessment/Plan Assessment/Recommendations: Mr. Michel is a 55-year-old who was admitted with RLL pulmonary embolism, fever , chills, and elevated liver enzymes and bilirubin. On admission, CTA of the chest noted RLL PE. CT abdomen/pelvis demonstrated cholithiasis. He is on heparin drip for his PE. He underwent ERCP yesterday. LFT is improved today but bilirubin remains elevated. US of the abdomen did not find any significant abnormalities including PVT or mass. Etiology of his PE is unclear at the moment. He should be worked up as an outpatient as it would not change the management inpatient at the moment. US of the lower extremity is pending. He has no evidence of malignancy at the moment with imaging. ERCP did not noted any significant abnormalities. He will need anticoagulation for at least 6 months. If he needs surgery and is elective, this should be done around 3 months of anticoagulation. RECOMMENDATIONS: 1. Doppler ultrasound of lower extremity to evaluate for DVT: pending 2. Hypercoagulabe work up as an outpatient (if starting on warfarin, get protein C and S level prior) 3. Continue heparin pending procedure/surgery and transition to oral anticoagulant when ready 4. Follow up as outpatient in 2-4 weeks after discharge Please call [phone] with any questions or concerns. Problem List: 1. Pulmonary embolism 2. Transaminitis
--- NOTE | 2016-07-04 09:31 | RADIOLOGY REPORT ---
EXAMINATION: XR BILIARY AND PANCREATIC ERCP CLINICAL INFORMATION: Cholangitis. COMPARISON: Ultrasound 07/03/2016. TECHNIQUE: Intraoperative fluoroscopic guidance was provided for Dr. Mcmanus to perform ERCP. FLUOROSCOPY TIME: 3 minutes 10 seconds FINDINGS: The endoscope is seen within the second portion of the duodenum and a wire is extending through the ampulla into the cystic duct and subsequently intrahepatic biliary system. Contrast injected demonstrates filling defects which are likely small air bubbles. A plastic stent is placed. IMPRESSION: Common bile duct stent placement under fluoroscopic guidance. Refer to the operative notes for details.
--- NOTE | 2016-07-04 10:26 | ULTRASOUND REPORT ---
EXAMINATION: US TRIPLEX LOWER EXTREMITY, BILATERAL CLINICAL INFORMATION: 55-year-old man with history of PE. COMPARISON: None. TECHNIQUE: Color-flow triplex imaging with spectral analysis and compression Doppler were performed on the bilateral lower extremities. FINDINGS: Respiratory variation, normal compression and augmented flow are noted throughout the bilateral lower extremities. The visualized common femoral vein, superficial femoral vein, profunda femoral vein, popliteal vein and mid calf peroneal and posterior tibial venous segments show no evidence of deep venous thrombosis. There is no Arreguin's cyst. IMPRESSION: Normal triplex scan without evidence of deep venous thrombosis involving the bilateral lower extremities.
--- NOTE | 2016-07-04 10:29 | ULTRASOUND REPORT ---
US DOPPLER LIVER INDICATION: Unprovoked pulmonary embolism with transaminitis and dilated common bile duct. Evaluate for portal vein thrombosis. FINDINGS: The main, right and left portal veins are patent with normal antegrade flow and waveforms. The right, middle, and left hepatic veins are patent with normal flow and waveforms. IMPRESSION: Normal duplex ultrasound examination of the portal and hepatic veins.
--- NOTE | 2016-07-04 11:10 | Cons- Pulmonary ---
General Information and HPI Consulting Request Date of Consult: 07/04/16 Requested By: Dr. Marroquin Reason for Consult: Pulmonary embolism Source of Information: patient Exam Limitations: no limitations History of Present Illness: Patient is 55 years old and a consultation is requested for pulmonary embolism but does not seem to be provoked. The patient was admitted to the hospital on July 03 with chills nausea and fatigue. He also has had some myalgia and had a fever of 11.6 in the emergency room department and tachycardia. During the workup patient had an elevated d-dimer and a CAT scan of the chest was performed showing a pulmonary embolism in the medial basilar segment of the right lower lobe. He was started on heparin drip and due to an elevated bilirubin ascending cholangitis was considered and an ERCP with stent placement was performed. Patient has negative triple scan of his legs without any evidence for DVT. An echocardiogram is pending. From the pulmonary perspective he is not short of breath no hemoptysis. He has no cough at this time. His labs initially showed a white count of 14.4 currently 10.2 and his bilirubin continues to rise total bili 4.1 direct bili 3.2. His LFTs are deranged as well however improved. Oxygen saturations 95% on room air and his tachycardia has resolved as well. Allergies/Medications Allergies: Coded Allergies: No Known Allergies (07/02/16) Home Med List: No Known Home Medications Current Medications: Current Medications Sig/Santiago Start time Last Medication Dose Route Stop Time Status Admin Ampicillin Sodium/ 3,000 MG Q6H 07/03 0330 AC 07/04 Sulbactam Sodium IV 0329 Sodium Chloride 100 ML Benzocaine 1 SHAMIKA .STK-MED ONE 07/04 758 DC TOP 07/04 08 Fentanyl Citrate 100 MCG .STK-MED ONE 07/03 144 DC IM 07/03 144 Heparin Sodium/ 25,000 UNIT Q24H 07/03 0045 AC 07/04 Dextrose IV 0051 Dextrose/Water 500 ML Iopamidol 1 ML .STK-MED ONE 07/04 758 DC IV 07/04 08 Lidocaine 2 SHAMIKA .STK-MED ONE 07/04 758 DC TOP 07/04 08 Midazolam HCl 5 MG .STK-MED ONE 07/03 144 DC IM 07/03 144 Oxycodone HCl 10 MG Q6P PRN 07/03 0215 AC PO Sodium Chloride 1,000 ML .[id number] 07/03 0200 AC 07/03 IV 1721 Review of Systems Comments 18 point Review of Systems performed. Positive and negative pertinent findings are deliniated in the HPI. Otherwise the ROS is negative. 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 Home Who Do You Live With? spouse, child Services at Home: None Primary Language: Maltese Smoking Status: Never Smoked ETOH Use: occasional use Illicit Drug Use: denies illicit drug use Functional Ability ADLs Independent: dressing, eating, toileting, bathing. Ambulation: independent IADLs Independent: shopping, housework, finances, food prep, telephone, transportation , medication admin. Exam & Diagnostic Data Last 24 Hrs of Vital Signs/I&O Vital Signs Date Time Temp Pulse Resp B/P Pulse O2 O2 Flow FiO2 Ox Delivery Rate 07/04 0649 98.8 88 15 110/60 Room Air 07/04 0035 100.0 96 18 118/68 95 Room Air 07/04 0000 93 Room Air 07/03 1530 98.3 89 20 118/68 93 Room Air 07/03 1434 124/64 07/03 1402 Room Air 07/03 1129 86 20 126/78 97 Room Air Room Air Intake & Output 07/04 1600 07/04 0800 07/04 0000 Intake Total 1184 2024 Output Total Balance 1184 2024 Intake, IV 784 1384 Intake, Oral 400 640 Number 0 Bowel Movements Physical Exam Other Physical Findings: General - Alert, awake and oriented HEENT - normocephalic, atraumatic Cardiovascular - S1, S2 Lungs - clear to auscultation bilaterally Abdomen - soft, bowel sounds positive, no tenderness Extremities - without edema or cyanosis Last 48 Hrs of Labs/Contreras: Laboratory Tests 07/04/16 0609: Anion Gap 12, Estimated GFR > 60, BUN/Creatinine Ratio 14.0, Total Bilirubin 4.1 H, Direct Bilirubin 3.2 H, AST 126 H, ALT 232 H, Alkaline Phosphatase 95, Total Protein 4.9 L, Albumin 2.5 L, APTT 65 H, CBC w Diff NO MAN DIFF REQ, RBC 4.04 L, MCV 98.4 H, MCH 33.4 H, RDW 13.0, MPV 8.8, Gran % 80.3 H, Lymphocytes % 7.4 L, Monocytes % 11.5 H, Eosinophils % 0.6, Basophils % 0.2, Absolute Granulocytes 8.2 H, Absolute Lymphocytes 0.7 L, Absolute Monocytes 1.2 H, Absolute Eosinophils 0.1, Absolute Basophils 0, PUBS MCHC 34.0 07/03/16 1750: Anion Gap 11, Estimated GFR > 60, BUN/Creatinine Ratio 16.7, APTT 82 H, CBC w Diff NO MAN DIFF REQ, RBC 4.35 L, MCV 98.6 H, MCH 33.0 H, RDW 13.3, MPV 8.4, Gran % 85.0 H, Lymphocytes % 5.7 L, Monocytes % 8.7, Eosinophils % 0.5, Basophils % 0.1, Absolute Granulocytes 12.2 H, Absolute Lymphocytes 0.8 L, Absolute Monocytes 1.3 H, Absolute Eosinophils 0.1, Absolute Basophils 0, PUBS MCHC 33.5 07/03/16 0732: Lactic Acid 1.7 07/03/16 0732: Total Bilirubin 3.4 H, Direct Bilirubin 2.5 H, AST 272 H, ALT 356 H, Alkaline Phosphatase 122, Total Protein 5.6 L, Albumin 2.9 L, PT 16.4 H, INR 1.57 H, APTT 102 *H, Hepatitis A IgM Ab NONREACTIVE, Hep Bs Antigen NONREACTIVE , Hep B Core IgM Ab Conf NONREACTIVE, Hepatitis C Antibody NONREACTIVE 07/03/16 0600: PT Cancelled, INR Cancelled 07/03/16 0416: Lactic Acid 2.1 07/02/16 2225: PT 14.2 H, INR 1.36 H, APTT 28, D-Dimer 3017 H, CBC w Diff NO MAN DIFF REQ, RBC 4.84, MCV 97.2 H, MCH 32.9 H, RDW 12.6, MPV 7.4, Gran % 90.5 H, Lymphocytes % 2.4 L, Monocytes % 7.0, Eosinophils % 0, Basophils % 0.1, Absolute Granulocytes 11.8 H, Absolute Lymphocytes 0.3 L, Absolute Monocytes 0.9 H, Absolute Eosinophils 0, Absolute Basophils 0, PUBS MCHC 33.8 07/02/16 2223: Hemoglobin A1c 6.4 H 07/02/16 222: Anion Gap 13, Estimated GFR 53 L, BUN/Creatinine Ratio 12.1, Glucose 259 H, Calcium 8.8, Total Bilirubin 2.3 H, Direct Bilirubin 1.6 H, GGT 360 H, AST 427 H, ALT 358 H, Alkaline Phosphatase 131 H, Troponin I < 0.01, Total Protein 6.6, Albumin 3.7, Globulin 2.9, Albumin/Globulin Ratio 1.3, TSH 0.634, Free T4 1.50, Serum Alcohol < 10.0 Assessment/Plan Impression/Plan: Impression 55-year-old man with a pulmonary embolism in the medial basilar segment of the right lower lobe. This is in the setting of acute cholangitis/ choledocholithiasis requiring ERCP. Deranged LFTs and bilirubin. Blood cultures showing gram-negative rods. 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
--- NOTE | 2016-07-04 12:59 | PN- Gastroenterology ---
Assessment/Plan Assessment/Recommendations: Assesssment: Mr. Michel is a 55 year old male with ascending cholangitis s/p ERCP with stent placement. As he is on heparin for a PE a sphincterotomy was not perfromed. He is currently doing well and while it is a bit concerning that his bilirubin increased since the ERCP it is not that unusual for this to occur one day out of an ERCP and may be from ampullary swelling. He has been afebrile since the procedure and the stent was draining at the time of the ERCP so I am hopeful that the bili will start to trend down over the next 24 hours. He remains without any abdominal pain and is tolerating a diet. He ultimately will need to have the stones removed as well as his gallbladder, but will likely defer this for 6 months when his anticoagulation can hopefully be safely discontinued. His stent will therefore need to be changed at least once before this can be done. Recommendations: 1. Diet as tolerated 2. Continue unasyn and follow up cultures; if he remains afebrile to consdier changing to oral abx in the next 24-48 hours 3. Notify GI for signs of septic shock or any changes in his mental status 4. Follow daily LFTs 5. Will tentatively plan for a repeat ERCP with stent exchange in about 3 months I will continue to follow this patient and make further recommendations based on his clinical course and results of repeat lab work. Problem List: 1. Choledocholithiasis 2. Acute hepatitis 3. Pulmonary embolism Subjective Subjective: Pt is doing well s/p ERCP yesterday with stent placement with good visual drainage of bile. He is without any pain, fevers, or hemodynamic instability. He is having some loose stool since the procedure. He has not had any bleeding on heparin. Objective Vital Signs and I&Os Vital Signs Date Time Temp Pulse Resp B/P Pulse O2 O2 Flow FiO2 Ox Delivery Rate 07/04 0649 98.8 88 15 110/60 Room Air 07/04 0035 100.0 96 18 118/68 95 Room Air 07/04 0000 93 Room Air 07/03 1530 98.3 89 20 118/68 93 Room Air 07/03 1434 124/64 07/03 1402 Room Air Intake & Output 07/04 1600 07/04 0400 07/03 1600 07/03 0400 07/02 1600 07/02 0400 Intake Total 1184 2024 500 Output Total Balance 1184 2024 500 Intake, IV 784 1384 500 Intake, Oral 400 640 Number 0 Bowel Movements Patient 205 lb 205 lb Weight Physical Exam General Appearance: well developed/nourished, no apparent distress, alert, comfortable Head: atraumatic, normal appearance Ears, Nose, Throat: scleral icterus Neck: normal inspection, supple, full range of motion Respiratory: normal breath sounds, chest non-tender Cardiovascular: regular rate/rhythm Abdomen: normal bowel sounds, soft, non-tender Back: normal inspection, normal range of motion Extremities: normal inspection, no edema Skin: intact, normal color, warm/dry Current Medications: Current Medications Sig/Santiago Start time Last Medication Dose Route Stop Time Status Admin Ampicillin Sodium/ 3,000 MG Q6H 07/03 0330 07/04 Sulbactam Sodium IV 0329 Sodium Chloride 100 ML Benzocaine 1 SHAMIKA .STK-MED ONE 07/04 0759 DC TOP 07/04 0800 Fentanyl Citrate 100 MCG .STK-MED ONE 07/03 1446 DC IM 07/03 1447 Heparin Sodium/ 25,000 UNIT Q24H 07/03 0045 07/04 Dextrose IV 0051 Dextrose/Water 500 ML Iopamidol 1 ML .STK-MED ONE 07/04 0759 DC IV 07/04 0800 Lidocaine 2 SHAMIKA .STK-MED ONE 07/04 0759 NH TOP 07/04 0800 Midazolam HCl 5 MG .STK-MED ONE 07/03 1446 DC IM 07/03 1447 Oxycodone HCl 10 MG Q6P PRN 07/03 0215 PO Sodium Chloride 1,000 ML .[id number] 07/03 0200 07/03 IV 1721 Results Pertinent Lab Results: Laboratory Tests 07/04 07/03 0609 1750 Chemistry Sodium (137 - 145 mmol/L) 138 138 Potassium (3.5 - 5.1 mmol/L) 3.3 L 4.0 Chloride (98 - 107 mmol/L) 104 103 Carbon Dioxide (22 - 30 mmol/L) 22 24 Anion Gap (5 - 16) 12 11 BUN (9 - 20 mg/dL) 14 15 Creatinine (0.7 - 1.2 mg/dL) 1.0 0.9 Estimated GFR (>60 ml/min) > 60 > 60 BUN/Creatinine Ratio (7 - 25 %) 14.0 16.7 Total Bilirubin (0.2 - 1.3 mg/dL) 4.1 H Direct Bilirubin (< 0.4 mg/dL) 3.2 H AST (17 - 59 U/L) 126 H ALT (21 - 72 U/L) 232 H Alkaline Phosphatase (< 127 U/L) 95 Total Protein (6.3 - 8.2 g/dL) 4.9 L Albumin (3.5 - 5.0 g/dL) 2.5 L Coagulation APTT (25 - 37 SEC) 65 H 82 H Hematology CBC w Diff NO MAN DIFF REQ NO MAN DIFF REQ WBC (4.8 - 10.8 /CUMM) 10.2 14.4 H RBC (4.70 - 6.10 /CUMM) 4.04 L 4.35 L Hgb (14.0 - 18.0 G/DL) 13.5 L 14.4 Hct (42 - 52 %) 39.8 L 42.9 MCV (80.0 - 94.0 FL) 98.4 H 98.6 H MCH (27.0 - 31.0 PG) 33.4 H 33.0 H RDW (11.5 - 14.5 %) 13.0 13.3 Plt Count (130 - 400 /CUMM) 126 L 136 MPV (7.4 - 10.4 FL) 8.8 8.4 Gran % (42.2 - 75.2 %) 80.3 H 85.0 H Lymphocytes % (20.5 - 51.1 %) 7.4 L 5.7 L Monocytes % (1.7 - 9.3 %) 11.5 H 8.7 Eosinophils % (0 - 5 %) 0.6 0.5 Basophils % (0.0 - 2.0 %) 0.2 0.1 Absolute Granulocytes (1.4 - 6.5 /CUMM) 8.2 H 12.2 H Absolute Lymphocytes (1.2 - 3.4 /CUMM) 0.7 L 0.8 L Absolute Monocytes (0.10 - 0.60 /CUMM) 1.2 H 1.3 H Absolute Eosinophils (0.0 - 0.7 /CUMM) 0.1 0.1 Absolute Basophils (0.0 - 0.2 /CUMM) 0 0 PUBS MCHC (33.0 - 37.0 G/DL) 34.0 33.5 07/03 07/03 07/03 07/03 0732 0732 0600 0416 Chemistry Lactic Acid (0.7 - 2.1 mmol/L) 1.7 2.1 Total Bilirubin (0.2 - 1.3 mg/dL) 3.4 H Direct Bilirubin (< 0.4 mg/dL) 2.5 H AST (17 - 59 U/L) 272 H ALT (21 - 72 U/L) 356 H Alkaline Phosphatase (< 127 U/L) 122 Total Protein (6.3 - 8.2 g/dL) 5.6 L Albumin (3.5 - 5.0 g/dL) 2.9 L Coagulation PT (9.4 - 12.5 SEC) 16.4 H Cancelled INR (0.90 - 1.17) 1.57 H Cancelled APTT (25 - 37 SEC) 102 *H Serology Hepatitis A IgM Ab (NONREACTIVE) NONREACTIVE Hep Bs Antigen (NONREACTIVE) NONREACTIVE Hep B Core IgM Ab Conf (NONREACTIVE) NONREACTIVE Hepatitis C Antibody (NONREACTIVE) NONREACTIVE 07/02 07/02 07/02 2225 2223 2223 Chemistry Sodium (137 - 145 mmol/L) 134 L Potassium (3.5 - 5.1 mmol/L) 4.0 Chloride (98 - 107 mmol/L) 95 L Carbon Dioxide (22 - 30 mmol/L) 26 Anion Gap (5 - 16) 13 BUN (9 - 20 mg/dL) 17 Creatinine (0.7 - 1.2 mg/dL) 1.4 H Estimated GFR (>60 ml/min) 53 L BUN/Creatinine Ratio (7 - 25 %) 12.1 Glucose (65 - 99 mg/dL) 259 H Hemoglobin A1c (<5.7) 6.4 H Calcium (8.4 - 10.2 mg/dL) 8.8 Total Bilirubin (0.2 - 1.3 mg/dL) 2.3 H Direct Bilirubin (< 0.4 mg/dL) 1.6 H GGT (15 - 73 U/L) 360 H AST (17 - 59 U/L) 427 H ALT (21 - 72 U/L) 358 H Alkaline Phosphatase (< 127 U/L) 131 H Troponin I (<0.11 ng/ml) < 0.01 Total Protein (6.3 - 8.2 g/dL) 6.6 Albumin (3.5 - 5.0 g/dL) 3.7 Globulin (1.9 - 4.2 gm/dL) 2.9 Albumin/Globulin Ratio (1.1 - 2.2 %) 1.3 TSH (0.270 - 4.200 uIU/mL) 0.634 Free T4 (0.64 - 1.79 ng/dL) 1.50 Coagulation PT (9.4 - 12.5 SEC) 14.2 H INR (0.90 - 1.17) 1.36 H APTT (25 - 37 SEC) 28 D-Dimer (70 - 232 ng/ml) 3017 H Hematology CBC w Diff NO MAN DIFF REQ WBC (4.8 - 10.8 /CUMM) 13.1 H RBC (4.70 - 6.10 /CUMM) 4.84 Hgb (14.0 - 18.0 G/DL) 15.9 Hct (42 - 52 %) 47.0 MCV (80.0 - 94.0 FL) 97.2 H MCH (27.0 - 31.0 PG) 32.9 H RDW (11.5 - 14.5 %) 12.6 Plt Count (130 - 400 /CUMM) 172 MPV (7.4 - 10.4 FL) 7.4 Gran % (42.2 - 75.2 %) 90.5 H Lymphocytes % (20.5 - 51.1 %) 2.4 L Monocytes % (1.7 - 9.3 %) 7.0 Eosinophils % (0 - 5 %) 0 Basophils % (0.0 - 2.0 %) 0.1 Absolute Granulocytes (1.4 - 6.5 /CUMM) 11.8 H Absolute Lymphocytes (1.2 - 3.4 /CUMM) 0.3 L Absolute Monocytes (0.10 - 0.60 /CUMM) 0.9 H Absolute Eosinophils (0.0 - 0.7 /CUMM) 0 Absolute Basophils (0.0 - 0.2 /CUMM) 0 PUBS MCHC (33.0 - 37.0 G/DL) 33.8 Toxicology Serum Alcohol (<10 MG/DL) < 10.0 BC - gram negative rods Imaging/Other Studies: ERCP: FINDINGS: The endoscope is seen within the second portion of the duodenum and a wire is extending through the ampulla into the cystic duct and subsequently intrahepatic biliary system. Contrast injected demonstrates filling defects which are likely small air bubbles. A plastic stent is placed. IMPRESSION: Common bile duct stent placement under fluoroscopic guidance. Refer to the operative notes for details.
[2016-07-04] MEDS ORDERED: LOVENOX150 MG/1 M SC (15:18)
[2016-07-04] MEDS ORDERED: AUGMENTIN 875-1 EACH PO (15:18)
[2016-07-04] MEDS ORDERED: COUMADIN5 M2 PO (15:18)
[2016-07-04 16:16] VITALS: BP 118/76
--- NOTE | 2016-07-04 16:53 | Cons- General Surgery ---
General Information and HPI Consulting Request Date of Consult: 07/03/16 Requested By: LESLI FREGOSO MD Reason for Consult: gallstones and elevated LFT's Source of Information: patient Exam Limitations: no limitations History of Present Illness: pt presented to the ED because of shaking chills and he did not report any pain at all workup revealed a right sided PE as well as elevated LFT's and it was suspected that he may have choledocholithiasis and possible ascending cholangitis Allergies/Medications Allergies: Coded Allergies: No Known Allergies (07/02/16) Home Med List: Ciprofloxacin HCl (Cipro) 500 MG TABLET 1 TAB PO BID GALL BLADDER INFECTION Enoxaparin Sodium (Lovenox) 40 MG/0.4 ML SYRINGE 140 MG SC DAILY BLOOD THINNER Warfarin Sodium (Coumadin) 5 MG TABLET 1 TAB PO DAILY BLOOD THINNER Current Medications: Current Medications Sig/Santiago Start time Last Medication Dose Route Stop Time Status Admin Ampicillin Sodium/ 3,000 MG Q6H 07/03 0330 AC 07/04 Sulbactam Sodium IV 1420 Sodium Chloride 100 ML Benzocaine 1 SHAMIKA .STK-MED ONE 07/04 0759 DC TOP 07/04 0800 Heparin Sodium/ 25,000 UNIT Q24H 07/03 0045 AC 07/04 Dextrose IV 0051 Dextrose/Water 500 ML Iopamidol 1 ML .STK-MED ONE 07/04 0759 DC IV 07/04 0800 Lidocaine 2 SHAMIKA .STK-MED ONE 07/04 0759 DC TOP 07/04 0800 Oxycodone HCl 10 MG Q6P PRN 07/03 0215 AC PO Potassium Chloride 40 MEQ BID 07/04 1600 CAN PO 07/04 2201 Potassium Chloride 10 MEQ Q1H 07/04 1600 AC IV 07/04 1801 Sodium Chloride 1,000 ML .[id number] 07/03 0200 DC 07/03 IV 1721 Past History Medical History Blood Transfusion Hx: No Neurological: NONE EENT: NONE Cardiovascular: NONE Respiratory: NONE Gastrointestinal: NONE Hepatic: NONE Renal: NONE Musculoskeletal: NONE Psychiatric: NONE Endocrine: NONE Blood Disorders: NONE Cancer(s): NONE 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 Home Who Do You Live With? spouse, child Services at Home: None Primary Language: Hungarian Smoking Status: Never Smoked ETOH Use: occasional use Illicit Drug Use: denies illicit drug use Functional Ability ADLs Independent: dressing, eating, toileting, bathing. Ambulation: independent IADLs Independent: shopping, housework, finances, food prep, telephone, transportation , medication admin. Review of Systems Review of Systems Constitutional: Reports: chills. EENTM: Denies: no symptoms. Cardiovascular: Denies: no symptoms. Respiratory: Denies: no symptoms. GI: Denies: no symptoms. Genitourinary: Denies: no symptoms. Musculoskeletal: Denies: no symptoms. Skin: Denies: no symptoms. Neurological/Psychological: Denies: no symptoms. Hematologic/Endocrine: Denies: no symptoms. Immunologic/Allergic: Denies: no symptoms. Exam & Diagnostic Data Vital Signs and I&O Vital Signs Date Time Temp Pulse Resp B/P Pulse O2 O2 Flow FiO2 Ox Delivery Rate 07/04 1616 99.3 80 16 118/76 94 Room Air 07/04 0649 98.8 88 15 110/60 Room Air 07/04 0035 100.0 96 18 118/68 95 Room Air 07/04 0000 93 Room Air Intake & Output 07/04 1600 07/04 0800 07/04 0000 07/03 1600 07/03 0800 07/03 0000 Intake Total 809 1184 2024 500 Output Total Balance 809 1184 2024 500 Intake, IV 981 300 5093 500 Intake, Oral 400 640 Number 0 Bowel Movements Patient 205 lb 205 lb Weight Physical Exam General Appearance: well developed/nourished, no apparent distress, alert, awake , comfortable Head: normal appearance Eyes: Bilateral: normal appearance, PERRL, EOMI, other (slight icterus). Neck: normal inspection, supple Respiratory: normal breath sounds, no respiratory distress Cardiovascular: regular rate/rhythm Gastrointestinal: soft, non-tender, no organomegaly Rectal: deferred Extremities: normal inspection, no edema Neurologic/Psych: no motor/sensory deficits, awake, alert, oriented x 3 Cranial Nerves: normal hearing, normal speech, PERRL Skin: intact, normal color Last 24 Hours of Labs: Laboratory Tests 07/04 07/03 0609 1750 Chemistry Sodium (137 - 145 mmol/L) 138 138 Potassium (3.5 - 5.1 mmol/L) 3.3 L 4.0 Chloride (98 - 107 mmol/L) 104 103 Carbon Dioxide (22 - 30 mmol/L) 22 24 Anion Gap (5 - 16) 12 11 BUN (9 - 20 mg/dL) 14 15 Creatinine (0.7 - 1.2 mg/dL) 1.0 0.9 Estimated GFR (>60 ml/min) > 60 > 60 BUN/Creatinine Ratio (7 - 25 %) 14.0 16.7 Total Bilirubin (0.2 - 1.3 mg/dL) 4.1 H Direct Bilirubin (< 0.4 mg/dL) 3.2 H AST (17 - 59 U/L) 126 H ALT (21 - 72 U/L) 232 H Alkaline Phosphatase (< 127 U/L) 95 Total Protein (6.3 - 8.2 g/dL) 4.9 L Albumin (3.5 - 5.0 g/dL) 2.5 L Coagulation APTT (25 - 37 SEC) 65 H 82 H Hematology CBC w Diff NO MAN DIFF REQ NO MAN DIFF REQ WBC (4.8 - 10.8 /CUMM) 10.2 14.4 H RBC (4.70 - 6.10 /CUMM) 4.04 L 4.35 L Hgb (14.0 - 18.0 G/DL) 13.5 L 14.4 Hct (42 - 52 %) 39.8 L 42.9 MCV (80.0 - 94.0 FL) 98.4 H 98.6 H MCH (27.0 - 31.0 PG) 33.4 H 33.0 H RDW (11.5 - 14.5 %) 13.0 13.3 Plt Count (130 - 400 /CUMM) 126 L 136 MPV (7.4 - 10.4 FL) 8.8 8.4 Gran % (42.2 - 75.2 %) 80.3 H 85.0 H Lymphocytes % (20.5 - 51.1 %) 7.4 L 5.7 L Monocytes % (1.7 - 9.3 %) 11.5 H 8.7 Eosinophils % (0 - 5 %) 0.6 0.5 Basophils % (0.0 - 2.0 %) 0.2 0.1 Absolute Granulocytes (1.4 - 6.5 /CUMM) 8.2 H 12.2 H Absolute Lymphocytes (1.2 - 3.4 /CUMM) 0.7 L 0.8 L Absolute Monocytes (0.10 - 0.60 /CUMM) 1.2 H 1.3 H Absolute Eosinophils (0.0 - 0.7 /CUMM) 0.1 0.1 Absolute Basophils (0.0 - 0.2 /CUMM) 0 0 PUBS MCHC (33.0 - 37.0 G/DL) 34.0 33.5 Assessment/Plan Assessment/Plan see MD statement Consult Acknowledgment - Thank you for your consult request. Attending MD Review Statement Attending Statement Attending MD Statement: examined this patient, discuss w/resident/PA/F[facility] WARDEN, reviewed EMR data (avail) Attending Assessment/Plan: pt seen yesterday 07/03 in ED holding in the morning prior to the ERCP I have noted the ERCP findings and Dr Foss's note and will be happy to follow the pt once discharged to watch his progress and proceed with Lap Ellie once it is felt safe to hold or stop the anticoagulation Agree that he should undergoe cholecystectomy once pulmonary feels it is safe to proceed and since he know has a stent their is no urgency
[2016-07-04 19:04] LABS: PTT 52 SEC (25-37)
[2016-07-05 01:06] VITALS: BP 110/60
[2016-07-05 03:24] LABS: PTT 65 SEC (25-37)
[2016-07-05 07:48] LABS: ABSOLUTE BASOPHIL COUNT 0 /CUMM (0.0-0.2); ABSOLUTE EOSINOPHIL COUNT 0.1 /CUMM (0.0-0.7); ABSOLUTE GRANULOCYTE CT 6.5 /CUMM (1.4-6.5); ABSOLUTE LYMPH COUNT 0.9 /CUMM (1.2-3.4); ABSOLUTE MONOCYTE COUNT 0.9 /CUMM (0.10-0.60); BASOPHIL % 0.1 % (0.0-2.0); EOSINOPHIL % 1.7 % (0-5); GRANULOCYTE % 77.3 % (42.2-75.2); HEMATOCRIT 40.7 % (42-52); MEAN CORPUSCULAR HGB 33.6 PG (27.0-31.0); MEAN CORPUSCULAR HGB CONC 34.5 G/DL (33.0-37.0); MEAN CORPUSCULAR VOLUME 97.3 FL (80.0-94.0); MEAN PLATELET VOLUME 8.7 FL (7.4-10.4); PLATELET COUNT 154 /CUMM (130-400); RED BLOOD CELL CT 4.18 /CUMM (4.70-6.10); WHITE BLOOD CELL COUNT 8.4 /CUMM (4.8-10.8)
[2016-07-05 08:00] VITALS: BP 128/80
--- NOTE | 2016-07-05 12:11 | ECHOCARDIOGRAM REPORT ---
LALIT ALMARAZ Age: 55 : 1960 Gender: M Exam Date: 07/04/2016 17:13 Exam Location: [facility] Ht (in): 72 Wt (lb): 205 BSA: 2.19 BP: 110 / 60 Ordering Physician: ARSEN COHEN MD Referring Physician: ARSEN COHEN MD Technologist: MICHAEL JAIMES [facility], [facility] Room Number: [id number] Indications: ACUTE PULMONARY EMBOLISM Rhythm: Sinus Technical Quality: Good FINDINGS Left Ventricle Normal global left ventricular size, wall thickness, systolic function with no obvious regional wall motion abnormalities. Normal left ventricular ejection fraction visually estimated a>65 %. Normal left ventricular diastolic filling pattern for age. Right Ventricle The right ventricle is normal in size and function. Right Atrium The right atrium is normal in size. Left Atrium Left atrial size at the upper limits of normal. Mitral Valve The mitral valve is normal in structure and function. There is trace mitral regurgitation. Aortic Valve Structurally normal aortic valve without significant sclerosis or stenosis. There is no aortic regurgitation. Tricuspid Valve The tricuspid valve is normal in structure and function. There is trace tricuspid regurgitation. Pulmonary artery systolic pressure is normal. Pulmonic Valve Structurally normal pulmonic valve. There is pulmonic regurgitation. Pericardium Normal pericardium without effusion. No pleural effusion. Great Vessels Normal aortic root dimension. The aortic arch and great vessels are well seen and are normal. CONCLUSIONS No significant valve abnormalities. Normal global left ventricular size, wall thickness, systolic function with no obvious regional wall motion abnormalities. Physiologic valvular regurgitation. Left atrial size at the upper limits of normal. Otherwise normal transthoracic echocardiogram. Elmer Mcmanus M.D. (Electronically Signed) Final Date: 05 July 2016 12:10 MEASUREMENTS (Male / Female) Normal Values 2D ECHO LV Diastolic Diameter PLAX 4.2 cm 4.2 - 5.9 / 3.9 - 5.3 cm LV Systolic Diameter PLAX 2.9 cm 2.1 - 4.0 cm LV Fractional Shortening PLAX 31.0 % 25 - 46 % LV Ejection Fraction 2D Teich 59.0 % IVS Diastolic Thickness 1.0 cm LVPW Diastolic Thickness 1.0 cm LV Relative Wall Thickness 0.5 LVOT Diameter 2.1 cm LA Volume 62.0 cm 18 - 58 / 22 - 52 cm Ascending Aorta Diameter 3.1 cm M-MODE Aortic Root Diameter MM 3.4 cm LA Systolic Diameter MM 2.8 cm 3.0 - 4.0 / 2.7 - 3.8 cm LA Ao Ratio MM 0.8 DOPPLER AV Peak Velocity 137.0 cm/s AV Peak Gradient 7.5 mmHg AV Mean Velocity 97.7 cm/s AV Mean Gradient 4.0 mmHg AV Velocity Time Integral 30.2 cm LVOT Peak Velocity 128.0 cm/s LVOT Peak Gradient 6.6 mmHg AV Area Cont Eq pk 3.2 cm MV Peak Velocity 88.8 cm/s MV Peak Gradient 3.2 mmHg MV Mean Velocity 49.4 cm/s MV Mean Gradient 1.0 mmHg Mitral E Point Velocity 94.8 cm/s Mitral A Point Velocity 93.8 cm/s Mitral E to A Ratio 1.0 MV PHT Velocity 87.4 cm/s MV Deceleration [place] 462.0 cm/s MV Pressure Half Time 56.8 ms MV Area PHT 3.9 cm MV Deceleration Time 130.0 ms PV Peak Velocity 100.0 cm/s PV Peak Gradient 4.0 mmHg LV E' Lateral Velocity 8.7 cm/s Mitral E to LV E' Lateral Ratio 10.9 LV E' Septal Velocity 9.1 cm/s Mitral E to LV E' Septal Ratio 10.5
--- NOTE | 2016-07-05 12:44 | PN- Gastroenterology ---
Assessment/Plan Assessment/Recommendations: Cholangitis/choledocholithiasis. Gram-negative rachel bacteremia. The patient is doing well clinically, and his liver enzymes/bilirubin are improving. He is having some diarrhea, which may be secondary to the antibiotics. Recommendations * Oral anticoagulation * Regular diet * Await final results of blood cultures. Would ask the laboratory to test the identified gram-negative rachel's sensitivity to Cipro, and if sensitive, change intravenous antibiotics to 5 day course of Cipro 500 mg by mouth twice a day * Outpatient follow-up in our office in 2-4 weeks. Follow-up ERCP will be coordinated with pulmonary and/or hematology, with regards to anticoagulation. * The patient should call immediately or return to the emergency room with recurrent abdominal pain or fever, as this may represent stent occlusion/ migration/cholangitis. Subjective Subjective: No abdominal pain. Tolerating diet. No nausea, vomiting, fever, itchiness. Having some diarrhea. Objective Vital Signs and I&Os Vital Signs Date Time Temp Pulse Resp B/P Pulse O2 O2 Flow FiO2 Ox Delivery Rate 07/05 0800 98.5 80 20 128/80 95 07/05 0106 98.9 88 20 110/60 94 Room Air 07/04 1616 99.3 80 16 118/76 94 Room Air Intake & Output 07/05 1600 07/05 0400 07/04 1600 07/04 0400 07/03 1600 07/03 0400 Intake Total 700 1992 2023 500 Output Total Balance 700 1992 2023 500 Intake, IV 300 1593 1384 500 Intake, Oral 400 400 640 Number 1 0 Bowel Movements Patient 205 lb 205 lb Weight Physical Exam: Sclera anicteric. Abdomen soft and nondistended with normal bowel sounds, no tenderness. Current Medications: Current Medications Sig/Santiago Start time Last Medication Dose Route Stop Time Status Admin Ampicillin Sodium/ 3,000 MG Q6H 07/03 0330 AC 07/05 Sulbactam Sodium IV 0829 Sodium Chloride 100 ML Heparin Sodium 3,716 UNIT ONE ONE 07/04 2001 DC 07/04 (Porcine) IV 07/04 Heparin Sodium/ 25,000 UNIT Q24H 07/03 0045 AC 07/05 Dextrose IV 0224 Dextrose/Water 500 ML Oxycodone HCl 10 MG Q6P PRN 07/03 0215 AC PO Potassium Chloride 40 MEQ BID 07/04 1745 DC 07/05 PO 01/06 2201 0830 Potassium Chloride 40 MEQ BID 07/04 1600 CAN PO 07/04 2201 Potassium Chloride 10 MEQ Q1H 07/04 1600 DC IV 07/04 1801 Sodium Chloride 2 SPRAY Q4P PRN 07/04 2100 AC MALCOLM Sodium Chloride 1,000 ML .[id number] 07/03 0200 DC 07/03 IV 1721 Results Pertinent Lab Results: Laboratory Tests 07/05 07/05 07/04 0645 0220 1753 Chemistry Total Bilirubin (0.2 - 1.3 mg/dL) 2.9 H Direct Bilirubin (< 0.4 mg/dL) 1.9 H AST (17 - 59 U/L) 70 H ALT (21 - 72 U/L) 179 H Alkaline Phosphatase (< 127 U/L) 109 Total Protein (6.3 - 8.2 g/dL) 5.4 L Albumin (3.5 - 5.0 g/dL) 2.6 L Coagulation APTT (25 - 37 SEC) 65 H 52 H Hematology CBC w Diff NO MAN DIFF REQ WBC (4.8 - 10.8 /CUMM) 8.4 RBC (4.70 - 6.10 /CUMM) 4.18 L Hgb (14.0 - 18.0 G/DL) 14.1 Hct (42 - 52 %) 40.7 L MCV (80.0 - 94.0 FL) 97.3 H MCH (27.0 - 31.0 PG) 33.6 H RDW (11.5 - 14.5 %) 13.0 Plt Count (130 - 400 /CUMM) 154 MPV (7.4 - 10.4 FL) 8.7 Gran % (42.2 - 75.2 %) 77.3 H Lymphocytes % (20.5 - 51.1 %) 10.5 L Monocytes % (1.7 - 9.3 %) 10.4 H Eosinophils % (0 - 5 %) 1.7 Basophils % (0.0 - 2.0 %) 0.1 Absolute Granulocytes (1.4 - 6.5 /CUMM) 6.5 Absolute Lymphocytes (1.2 - 3.4 /CUMM) 0.9 L Absolute Monocytes (0.10 - 0.60 /CUMM) 0.9 H Absolute Eosinophils (0.0 - 0.7 /CUMM) 0.1 Absolute Basophils (0.0 - 0.2 /CUMM) 0 PUBS MCHC (33.0 - 37.0 G/DL) 34.5 07/04 07/03 0609 1750 Chemistry Sodium (137 - 145 mmol/L) 138 138 Potassium (3.5 - 5.1 mmol/L) 3.3 L 4.0 Chloride (98 - 107 mmol/L) 104 103 Carbon Dioxide (22 - 30 mmol/L) 22 24 Anion Gap (5 - 16) 12 11 BUN (9 - 20 mg/dL) 14 15 Creatinine (0.7 - 1.2 mg/dL) 1.0 0.9 Estimated GFR (>60 ml/min) > 60 > 60 BUN/Creatinine Ratio (7 - 25 %) 14.0 16.7 Total Bilirubin (0.2 - 1.3 mg/dL) 4.1 H Direct Bilirubin (< 0.4 mg/dL) 3.2 H AST (17 - 59 U/L) 126 H ALT (21 - 72 U/L) 232 H Alkaline Phosphatase (< 127 U/L) 95 Total Protein (6.3 - 8.2 g/dL) 4.9 L Albumin (3.5 - 5.0 g/dL) 2.5 L Coagulation APTT (25 - 37 SEC) 65 H 82 H Hematology CBC w Diff NO MAN DIFF REQ NO MAN DIFF REQ WBC (4.8 - 10.8 /CUMM) 10.2 14.4 H RBC (4.70 - 6.10 /CUMM) 4.04 L 4.35 L Hgb (14.0 - 18.0 G/DL) 13.5 L 14.4 Hct (42 - 52 %) 39.8 L 42.9 MCV (80.0 - 94.0 FL) 98.4 H 98.6 H MCH (27.0 - 31.0 PG) 33.4 H 33.0 H RDW (11.5 - 14.5 %) 13.0 13.3 Plt Count (130 - 400 /CUMM) 126 L 136 MPV (7.4 - 10.4 FL) 8.8 8.4 Gran % (42.2 - 75.2 %) 80.3 H 85.0 H Lymphocytes % (20.5 - 51.1 %) 7.4 L 5.7 L Monocytes % (1.7 - 9.3 %) 11.5 H 8.7 Eosinophils % (0 - 5 %) 0.6 0.5 Basophils % (0.0 - 2.0 %) 0.2 0.1 Absolute Granulocytes (1.4 - 6.5 /CUMM) 8.2 H 12.2 H Absolute Lymphocytes (1.2 - 3.4 /CUMM) 0.7 L 0.8 L Absolute Monocytes (0.10 - 0.60 /CUMM) 1.2 H 1.3 H Absolute Eosinophils (0.0 - 0.7 /CUMM) 0.1 0.1 Absolute Basophils (0.0 - 0.2 /CUMM) 0 0 PUBS MCHC (33.0 - 37.0 G/DL) 34.0 33.5 07/03 07/03 07/03 07/03 0732 0732 0600 0416 Chemistry Lactic Acid (0.7 - 2.1 mmol/L) 1.7 2.1 Total Bilirubin (0.2 - 1.3 mg/dL) 3.4 H Direct Bilirubin (< 0.4 mg/dL) 2.5 H AST (17 - 59 U/L) 272 H ALT (21 - 72 U/L) 356 H Alkaline Phosphatase (< 127 U/L) 122 Total Protein (6.3 - 8.2 g/dL) 5.6 L Albumin (3.5 - 5.0 g/dL) 2.9 L Coagulation PT (9.4 - 12.5 SEC) 16.4 H Cancelled INR (0.90 - 1.17) 1.57 H Cancelled APTT (25 - 37 SEC) 102 *H Serology Hepatitis A IgM Ab (NONREACTIVE) NONREACTIVE Hep Bs Antigen (NONREACTIVE) NONREACTIVE Hep B Core IgM Ab Conf (NONREACTIVE) NONREACTIVE Hepatitis C Antibody (NONREACTIVE) NONREACTIVE 07/03 07/02 07/02 0247 2225 2223 Chemistry Hemoglobin A1c (<5.7) 6.4 H Coagulation PT (9.4 - 12.5 SEC) 14.2 H INR (0.90 - 1.17) 1.36 H APTT (25 - 37 SEC) 28 D-Dimer (70 - 232 ng/ml) 3017 H Hematology CBC w Diff NO MAN DIFF REQ WBC (4.8 - 10.8 /CUMM) 13.1 H RBC (4.70 - 6.10 /CUMM) 4.84 Hgb (14.0 - 18.0 G/DL) 15.9 Hct (42 - 52 %) 47.0 MCV (80.0 - 94.0 FL) 97.2 H MCH (27.0 - 31.0 PG) 32.9 H RDW (11.5 - 14.5 %) 12.6 Plt Count (130 - 400 /CUMM) 172 MPV (7.4 - 10.4 FL) 7.4 Gran % (42.2 - 75.2 %) 90.5 H Lymphocytes % (20.5 - 51.1 %) 2.4 L Monocytes % (1.7 - 9.3 %) 7.0 Eosinophils % (0 - 5 %) 0 Basophils % (0.0 - 2.0 %) 0.1 Absolute Granulocytes (1.4 - 6.5 /CUMM) 11.8 H Absolute Lymphocytes (1.2 - 3.4 /CUMM) 0.3 L Absolute Monocytes (0.10 - 0.60 /CUMM) 0.9 H Absolute Eosinophils (0.0 - 0.7 /CUMM) 0 Absolute Basophils (0.0 - 0.2 /CUMM) 0 PUBS MCHC (33.0 - 37.0 G/DL) 33.8 Urines Urine Color Cancelled Urine Clarity Cancelled Urine pH Cancelled Ur Specific [place] Cancelled Urine Protein Cancelled Urine Ketones Cancelled Urine Nitrite Cancelled Urine Bilirubin Cancelled Urine Urobilinogen Cancelled Ur Leukocyte Esterase Cancelled Ur Microscopic Cancelled Urine Hemoglobin Cancelled Urine Glucose Cancelled 07/023 Chemistry Sodium (137 - 145 mmol/L) 134 L Potassium (3.5 - 5.1 mmol/L) 4.0 Chloride (98 - 107 mmol/L) 95 L Carbon Dioxide (22 - 30 mmol/L) 26 Anion Gap (5 - 16) 13 BUN (9 - 20 mg/dL) 17 Creatinine (0.7 - 1.2 mg/dL) 1.4 H Estimated GFR (>60 ml/min) 53 L BUN/Creatinine Ratio (7 - 25 %) 12.1 Glucose (65 - 99 mg/dL) 259 H Calcium (8.4 - 10.2 mg/dL) 8.8 Total Bilirubin (0.2 - 1.3 mg/dL) 2.3 H Direct Bilirubin (< 0.4 mg/dL) 1.6 H GGT (15 - 73 U/L) 360 H AST (17 - 59 U/L) 427 H ALT (21 - 72 U/L) 358 H Alkaline Phosphatase (< 127 U/L) 131 H Troponin I (<0.11 ng/ml) < 0.01 Total Protein (6.3 - 8.2 g/dL) 6.6 Albumin (3.5 - 5.0 g/dL) 3.7 Globulin (1.9 - 4.2 gm/dL) 2.9 Albumin/Globulin Ratio (1.1 - 2.2 %) 1.3 TSH (0.270 - 4.200 uIU/mL) 0.634 Free T4 (0.64 - 1.79 ng/dL) 1.50 Toxicology Serum Alcohol (<10 MG/DL) < 10.0
--- NOTE | 2016-07-05 14:12 | PN- Pulmonary ---
Subjective HPI/Critical Care Issues: Patient seen and examined. No chest pain, at respiratory baseline. No nausea, vomiting, diarrhea or constipation. Afebrile and hemodynamically stable. Objective Current Medications: Current Medications Sig/Santiago Start time Last Medication Dose Route Stop Time Status Admin Ampicillin Sodium/ 3,000 MG Q6H 07/03 0330 AC 07/05 Sulbactam Sodium IV 0829 Sodium Chloride 100 ML Enoxaparin Sodium 90 MG BID 07/05 1300 AC 07/05 SC 1401 Heparin Sodium 3,716 UNIT ONE ONE 07/04 2001 DC 07/04 (Porcine) IV 07/04 Heparin Sodium/ 25,000 UNIT Q24H 07/03 0045 DC 07/05 Dextrose IV 0224 Dextrose/Water 500 ML Oxycodone HCl 10 MG Q6P PRN 07/03 0215 AC PO Patient Medication 1 UNIT ONE NR 07/05 1300 DC Teaching ED 07/05 1330 Potassium Chloride 40 MEQ BID 07/04 1745 DC 07/05 PO 07/04 2201 0830 Potassium Chloride 40 MEQ BID 07/04 1600 CAN PO 07/04 2201 Potassium Chloride 10 MEQ Q1H 07/04 1600 DC IV 07/04 1801 Sodium Chloride 2 SPRAY Q4P PRN 07/04 2100 AC MALCOLM Warfarin Sodium 5 MG COUMADIN 1700 ONE 07/05 1700 AC PO 07/05 1701 Vital Signs & I&O Last 24 Hrs of Vitals and I&O: Vital Signs Date Time Temp Pulse Resp B/P Pulse O2 O2 Flow FiO2 Ox Delivery Rate 07/05 799 98.5 80 20 128/80 95 07/05 0106 98.9 88 20 110/60 94 Room Air 07/04 1616 99.3 80 16 118/76 94 Room Air Intake & Output 07/05 1600 07/05 0800 07/05 0000 Intake Total 700 Output Total Balance 700 Intake, IV 300 Intake, Oral 400 Number 1 Bowel Movements Exam Other Physical Findings: General - Alert, awake and oriented HEENT - normocephalic, atraumatic Cardiovascular - S1, S2 Lungs - clear to auscultation bilaterally Abdomen - soft, bowel sounds positive, no tenderness Extremities - without edema or cyanosis Results Last 24 Hrs of Lab Results: Laboratory Tests 07/05/16 0645: Total Bilirubin 2.9 H, Direct Bilirubin 1.9 H, AST 70 H, ALT 179 H, Alkaline Phosphatase 109, Total Protein 5.4 L, Albumin 2.6 L, CBC w Diff NO MAN DIFF REQ, RBC 4.18 L, MCV 97.3 H, MCH 33.6 H, RDW 13.0, MPV 8.7, Gran % 77.3 H, Lymphocytes % 10.5 L, Monocytes % 10.4 H, Eosinophils % 1.7, Basophils % 0.1, Absolute Granulocytes 6.5, Absolute Lymphocytes 0.9 L, Absolute Monocytes 0.9 H, Absolute Eosinophils 0.1, Absolute Basophils 0, PUBS MCHC 34.5 07/05/16 0220: APTT 65 H 07/04/16 1753: APTT 52 H Impression/Plan Impression/Plan Impression/Plan: Impression 55-year-old man with a pulmonary embolism in the medial basilar segment of the right lower lobe. This is in the setting of acute cholangitis/ choledocholithiasis requiring ERCP. Deranged LFTs and bilirubin. Blood cultures showing gram-negative rods. 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
[2016-07-05 16:14] VITALS: BP 134/80
--- NOTE | 2016-07-05 16:30 | PN- Att Addend ---
Attending Addendum Attending Brief Note 55 year old pleasant male with past medical history significant for biliary sepsis and cholangitis is being admitted to the floor for pulmonary embolism in the medial basilar segment of the right lower lobe. Patient was admitted with elevated liver enzymes. GI has been following up the patient and has stent placed with ERCP. He was started on IV heparin initially and has been switched over to Lovenox today for bridging with Coumadin. 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 Patient is being kept on IV Unasyn, blood cultures grew gram-negative rods and sensitivities to follow. We will check his INR tomorrow and will consider sending him home on Thursday provided all his activities issues resolved.
[2016-07-05 23:54] VITALS: BP 136/74
[2016-07-06 08:20] LABS: PT 13.9 SEC (9.4-12.5)
[2016-07-06 08:49] VITALS: BP 120/70
--- NOTE | 2016-07-06 15:31 | PN- Att Addend ---
Attending Addendum Attending Brief Note 55 year old pleasant male with past medical history significant for biliary sepsis and cholangitis is being admitted to the floor for pulmonary embolism in the medial basilar segment of the right lower lobe. Patient was admitted with elevated liver enzymes. GI has been following up the patient and has stent placed with ERCP. He was started on IV heparin initially and has been switched over to Lovenox yesterday for bridging with Coumadin. His INR today is 1.33 and we will dose him again with 5 mg of Coumadin tonight. 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 Patient was being kept on IV Unasyn, blood cultures grew gram-negative rods and pain sensitive, will switch over to oral Cipro floxacillin for 5 days. We will check his INR tomorrow and will consider sending him home on Thursday.
[2016-07-06 16:41] VITALS: BP 118/72
--- NOTE | 2016-07-06 20:00 | NUR ---
NURSING NOTE: PATIENT ASKED THIS NURSE IF SHE COULD PLEASE REMOVE HIS IV. PATIENT COMPLAINED IT WAS UNNECESSARY AND ANNOYING. PATIENT VERY NICE ABOUT IT, BUT ADAMENT. HE STATES HE WILL ALLOW US TO PLACE A NEW IV IF NEED BE LATER. PATIENT NO LONGER HAS IV MEDICATIONS AT THIS TIME. [employer]PERATOR 136 NOTIFIED. NEW ORDER TO DISCONTINUE IV AT THIS TIME. WILL REMOVE IV AND CONTINUE TO MONITOR.
[2016-07-07 00:10] VITALS: BP 130/82
--- NOTE | 2016-07-07 07:48 | PN- Housestaff ---
STACYPORFIRIODANA 07/07/16 0748: Subjective Follow-up For: -Unprovoked pulmonary emboli on iv heparin -Choledocolithiasis s/p ERCP with stents. -Gram negative Sepsis Complaints: no complaints Tele-Events Since Last Visit: off tele Subjective: stable, will be d/c today Review of Systems Constitutional: Reports: see HPI. Objective Last 24 Hrs of Vital Signs/I&O Vital Signs Date Time Temp Pulse Resp B/P Pulse O2 O2 Flow FiO2 Ox Delivery Rate 07/07 916 98.8 86 18 130/70 95 Room Air 07/07 0010 98.2 81 18 130/82 95 Room Air Intake & Output 07/07 1600 07/07 0800 07/07 0000 Intake Total 1000 0 1200 Output Total Balance 1000 0 1200 Intake, Oral 1000 0 1200 Physical Exam General Appearance: Alert, Oriented X3, Cooperative, No Acute Distress Skin: No Rashes, No Breakdown HEENT: Atraumatic, PERRLA, EOMI Neck: Supple, No JVD, No thryomegaly Lymphatic: no lad Cardiovascular: Regular Rate, Normal S1, Normal S2, No Murmurs Lungs: Clear to Auscultation, Normal Air Movement Abdomen: Normal Bowel Sounds, Soft, No Tenderness Neurological: Strength at 5/5 X4 Ext, Normal Tone, Sensation Intact, Cranial Nerves 3-12 NL Extremities: No Clubbing, No Cyanosis, No Edema, Normal Pulses Vascular: Normal Pulses Current Medications: Current Medications Sig/Santiago Start time Last Medication Dose Route Stop Time Status Admin Ciprofloxacin 500 MG BID 07/06 1532 DCD 07/07 PO 07/10 1531 1031 Enoxaparin Sodium 50 MG ONCE ONE 07/07 1400 DC 07/07 SC 07/07 1401 1452 Enoxaparin Sodium 90 MG BID 07/05 1300 DCD 07/07 SC 1032 Oxycodone HCl 10 MG Q6P PRN 07/03 0215 DCD PO Patient Medication 1 ED .STK-MED ONE 07/07 1354 DC Teaching ED 07/07 1355 Potassium Chloride 40 MEQ ONCE ONE 07/07 0815 DC 07/07 PO 07/07 0816 1032 Sodium Chloride 2 SPRAY Q4P PRN 07/04 2100 DCD MALCOLM Last 24 Hrs of Lab/Contreras Results Last 24 Hrs of Labs/Mics: Laboratory Tests 07/07/16 0625: PT 13.4 H, INR 1.28 H Lines/Diet/Fluids Restraints: none Assessment/Plan Assessment: This is a 55 YO male who came in last night i.e 07/02/2015 with chief complaint of chills and rigor associated with some nausea on and off since four days prior to admission. He was febrile till 101.6 on presentation, otherwise stable, didnot have any abdominal pain, tenderness or guarding, white count of 13.1, elevated LFT's and GGT, ricky - 2.3, direct - 1.6 and was also found to have unprovoked PE in basilar segment ,alongwith dialted CBD on CT scan with gallstones.He is s/p ERCP with stent today. Problem List alongwith assesement and plan #1 Fever + chills + white count + elevated lft's 2/2 to choledocolithiasis with biliary obstruction s/p ERCP with stent placement Doing better, afebrile overnight, tolerated clear liquid diet well postercp. Ct PO AX, was switched to ofloxacin over the weekend, we'll discharge the patient to complete a total 14 days of antibiotic course. Bilirubin trended down, no new complaints, prior abdominal Doppler and bilateral lower extremity DVT ruled out DVT and portal vein thrombosis. Will ask the patient to follow up outpatient with GI and surgery. consider eventual GB removal. #2 Acute segmental PE on right side: Unprovoked, etiology unknown. No known risk factors for PE. Hematology consult appreciated. hypercoagulabilty work up as outpatient. Patient was started on Coumadin 5 mg daily over the weekend along with Lovenox bridging. We will discharge the patient on Coumadin 5 mg daily with INR monitoring. He will need anticoagulation for at least 6 months. Had a conversation with her primary care practitioner who agreed to follow her INR and he was set up with the Coumadin clinic. His next appointment at the Coumadin clinic is when his stay for p.m. 07/09/2016. He will be dosed for Coumadin with a target INR between 2 and 3. He will also continue bridging with Lovenox for a total of 6 days. #3 Gram Negative sepsis Patient was found to have gram negative rods on 2 bottles of one set of blood culutres. monitor white count/signs for sepsis closely. Patient was switched to by mouth ciprofloxacin over the weekend, he will be discharged today to complete entire course of 14 days of ciprofloxacin #3 Mild RACHEAL Creatinine back to baseline. Resolved with hydration. Pt tolerating diet fine. will dc fluids. #4 hyperglycemia: Sugar WNL, 116 and 85 HbA1c 6.4 Will discuss lifestyle modifications. DVT Px : heparin FC mild PP Problem List: 1. Pulmonary embolism 2. Transaminitis 3. Acute hepatitis 4. Choledocholithiasis Pain Ratin Pain Location: na Pain Goal: Remain pain free Pain Plan: tylenol Tomorrow's Labs & Rationales: not needed LESLI FREGOSO MD 07/07/16 1412: Attending MD Review Statement Attending Statement Attending MD Statement: examined this patient, discuss w/resident/PA/ANESTHESIA TECHNICIAN, agreed w/resident/PA/ANESTHESIA TECHNICIAN, discussed with family, reviewed EMR data (avail), discussed with nursing, discussed with case mgmt, reviewed images Attending Assessment/Plan: Patient feels well and is eager to go home. He is a 55-year-old male with gram- negative biliary sepsis. He is growing Escherichia coli in his blood from cholangitis. He had an ERCP and stent placed without a sphincterotomy and his bilirubin came down on Thursday. The plan for the biliary sepsis is that he is going to finish a total of 2 weeks of antibiotics. We switched him to by mouth Cipro and he is going to follow-up with GI. He will ultimately need a surgical eval for elective removal of his gallbladder. He also has an acute pulmonary embolism and we are transitioning him from Lovenox to Coumadin. We started the Lovenox at 1 mg per KG subcutaneous twice a day and he got Coumadin 5 mg on Thursday and 5 mg on Thursday. He is now going to leave with the Lovenox at 1.5 mg per KG subcutaneous daily and is going to continue the Coumadin 5 mg Thursday and Thursday with a follow-up INR on Thursday. We have spoken to his PCP Dr. De La Cruz in [place] who is going to follow-up on these results and then let him know how much more of an overlap he has to do based on the INR. I spoke to him and his at length and they understand the need for close follow-up outpatient with GI, hematology and PCP. Total time spent coordinating discharge was 33 minutes.
[2016-07-07 08:15] LABS: PT 13.4 SEC (9.4-12.5)
--- NOTE | 2016-07-07 08:32 | PN- Hematology ---
Subjective Subjective: He feels well and is ambulating without symptoms. He denies any new pain. Review of Systems Constitutional: Denies: chills, fever. Cardiovascular: Denies: chest pain. Respiratory: Denies: short of breath. Gastrointestinal: Denies: abdominal pain, nausea, vomiting. Musculoskeletal: Denies: back pain. All Other Systems: Reviewed and Negative Objective Vital Signs and I&Os Vital Signs Date Time Temp Pulse Resp B/P Pulse O2 O2 Flow FiO2 Ox Delivery Rate 07/07 0010 98.2 81 18 130/82 95 Room Air 07/06 1641 98.2 84 18 118/72 95 Room Air 07/06 0849 98.0 74 20 120/70 94 Room Air Intake & Output 07/07 1600 07/07 0807/07 0000 07/06 1600 07/06 0807/06 0000 Intake Total 0 1200 1979 760 3760 Output Total 550 Balance 0 1200 402 195 1750 Intake, IV 130 100 Intake, Oral 0 1200 1200 1200 Output, Urine 550 Physical Exam General Appearance: no apparent distress, alert, awake, comfortable Ears, Nose, Throat: lower lip with skin breakdown Neck: supple Respiratory: chest non-tender, no respiratory distress, decreased breath sounds (right lower base) Cardiovascular: regular rate/rhythm Abdomen: normal bowel sounds, soft, non-tender Skin: normal color Current Medications: Current Medications Sig/Santiago Start time Last Medication Dose Route Stop Time Status Admin Ampicillin Sodium/ 3,000 MG Q6H 07/03 0330 DC 07/06 Sulbactam Sodium IV 0951 Sodium Chloride 100 ML Ciprofloxacin 500 MG BID 07/06 1532 AC 07/06 PO 07/10 1531 2105 Enoxaparin Sodium 90 MG BID 07/05 1300 AC 07/06 SC 2105 Oxycodone HCl 10 MG Q6P PRN 07/03 0215 AC PO Sodium Chloride 2 SPRAY Q4P PRN 07/04 2100 AC MALCOLM Warfarin Sodium 5 MG COUMADIN 1700 ONE 07/06 1700 DC 07/06 PO 07/06 1701 1703 Results Last 24 Hours of Lab Results: Laboratory Tests 07/07 0625 Coagulation PT Pending INR Pending Recent Imaging Studies: Lower extremity doppler US 07/04/2016: Normal triplex scan without evidence of deep venous thrombosis involving the bilateral lower extremities. Abdominal US 07/04/2016: Normal duplex ultrasound examination of the portal and hepatic veins. Echocardiogram 07/04/2016: No significant valve abnormalities. Normal global left ventricular size, wall thickness, systolic function with no obvious regional wall motion abnormalities. Physiologic valvular regurgitation. Left atrial size at the upper limits of normal. Otherwise normal transthoracic echocardiogram. Assessment/Plan Assessment/Recommendations: Mr. Michel is a 55-year-old who was admitted with RLL pulmonary embolism, fever , chills, and elevated liver enzymes and bilirubin. On admission, CTA of the chest noted RLL PE. CT abdomen/pelvis demonstrated cholithiasis. He is on heparin drip for his PE. ERCP was done and CBD stent was placed. He underwent ERCP yesterday. LFT has improved. US of abdomen and pelvis is negative for hepatic/portal thrombosis. US of lower extremity is negative for DVT. Etiology of PE is unclear. He will need to have workup for hypercoagulable state as an outpatient. He has no evidence of malignancy at the moment with imaging. He will need anticoagulation for at least 6 months. If he needs surgery and is elective, this should be done around 3 months of anticoagulation. If need to be done sooner, can do after 1 month. He is now transitioning to warfarin. RECOMMENDATIONS: 1. Hypercoagulabe work up as an outpatient 2. Follow up as outpatient after discharge Please call [phone] with any questions or concerns. Problem List: 1. Pulmonary embolism 2. Choledocholithiasis 3. Transaminitis
[2016-07-07 09:17] VITALS: BP 130/70
[2016-07-07] MEDS ORDERED: CIPRO500 M1 PO ×2 (10:14→11:06)
[2016-07-07] MEDS ORDERED: LOVENOX150 MG/1 M SC (10:14)
--- NOTE | 2016-07-07 11:49 | NUR ---
NURSING NOTE: PT EDUCATED ON LOVENOX INJ. PT DEMONSTRATED ABILITY THIS AM TO GIVE SELF INJ. PT AND FEEL COMFORTABLE TO GO HOME AND GIVE SELF INJECTIONS.
[2016-07-07] MEDS ORDERED: COUMADIN5 M2 PO (13:27)
[2016-07-07] MEDS ORDERED: LOVENOX40 MG/0.1 SC (13:27)
== END 2016-07-07 15:07 | DRG 720 ==
LOC: ERH 21:47 → 1NO 07-03 01:06 → ERHI 07-03 01:06 → 2NB 07-03 01:06 → ERHI 07-03 07:00 → 1NO 07-03 13:41 → 2NB 07-05 11:49
PROVIDERS: Internal Medicine; Internal Medicine Hematology & Oncology; Nuclear Medicine Nuclear Cardiology; Pediatrics; Student in an Organized Health Care Education/Training Program; ADMIT Internal Medicine
PROC: 0F798DZ Dilation of Common Bile Duct with Intraluminal Device, Via Natural or Artificial Opening Endoscopic (ICD-10-PCS; principal; 2016-07-03)
DX: A41.9 Sepsis, unspecified organism (principal); I26.99 Other pulmonary embolism without acute cor pulmonale; K80.51 Calculus of bile duct without cholangitis or cholecystitis with obstruction; N17.9 Acute kidney failure, unspecified
CPT/HCPCS: 1NSP; 2NBSP; 36415; 74177; 82436; 87040; 87086; 87804; 87804-59; 93005; 93010; 93306; 93970; 96374; G0480; J0131; J1644; J1650; J7040; J7060; Q9967

== ENCOUNTER 2016-09-15 10:04 | Inpatient (IN) | payer OTHER ==
[~2016-09-15] VITALS: Ht 182.9 cm; Wt 90.7 kg
[~2016-09-15 10:04] MED LIST: AUGMENTIN 875-1 EACH PO; CIPRO500 M1 PO; COUMADIN5 M2 PO; LOVENOX150 MG/1 M SC; LOVENOX40 MG/0.1 SC
--- NOTE | 2016-09-15 10:38 | NUR ---
Informed waiting has been performed.
--- NOTE | 2016-09-15 10:38 | NUR ---
TRIAGE: PT TO ER WITH C/C LIGHTHEADED, FEVER 103.2 AT HOME, DRY MOUTH, SLEEPY AND GENERALIZED BODY ACHES. SPOKE WITH DR CORDOVA WHO ADVISED PATIENT COME TO ER. PT STATES SINCE JUN[place] HAS BEEN DIAGNOSED WITH PULMONARY EMBOLISM, INFLAMED GALL BLADDER, GALL STONES, KIDNEY STONES ENLARGED PROSTATE AND HAD STENT PLACED IN GALLBLADDER. WAS INPATIENT AT [facility] AND AT [facility] IN [place] FOR SAME. PT TEMP 99.2 AT TRIAGE, HAS NOT HAD ANY ANTIPYRETICS TODAY.
--- NOTE | 2016-09-15 11:04 | ED GENERAL ADULT ---
History of Present Illness General Chief Complaint: General Adult Stated Complaint: FEVER 103, DIZZINESS, SENT BY DR MCMANUS Source: patient, old records Exam Limitations: no limitations Vital Signs & Intake/Output Vital Signs & Intake/Output Vital Signs Date Time Temp Pulse Resp B/P Pulse O2 O2 Flow FiO2 Ox Delivery Rate 09/17 0830 96 Room Air 09/17 0652 98.9 68 20 118/78 91 09/17 0014 98.6 68 20 110/70 92 ED Intake and Output 09/17 0000 09/16 1200 Intake Total 1920 2620 Output Total 1400 Balance 1920 1220 Intake, IV 1100 2500 Intake, Oral 820 120 Number 1 1 Bowel Movements Output, Urine 1400 Allergies Coded Allergies: No Known Allergies (09/15/16) Reconcile Medications Amoxicillin/Potassium Clav (Augmentin 875-125 Tablet) 875 MG-125 MG TABLET 1 TAB PO BID ANTIBIOTIC, INFECTION Take first dose tonight. Warfarin Sodium (Coumadin) 7.5 MG TABLET 1 TAB PO 1700 BLOOD THINNER ( Reported) Start taking tomorrow. Triage Note: TRIAGE: PT TO ER WITH C/C LIGHTHEADED, FEVER 103.2 AT HOME, DRY MOUTH, SLEEPY AND GENERALIZED BODY ACHES. SPOKE WITH DR MCMANUS WHO ADVISED PATIENT COME TO ER. PT STATES SINCE JUNE HAS BEEN DIAGNOSED WITH PULMONARY EMBOLISM, INFLAMED GALL BLADDER, GALL STONES, KIDNEY STONES ENLARGED PROSTATE AND HAD STENT PLACED IN GALLBLADDER. WAS INPATIENT AT [place] AND AT [facility] IN [place] FOR SAME. PT TEMP 99.2 AT TRIAGE, HAS NOT HAD ANY ANTIPYRETICS TODAY. Triage Nurses Notes Reviewed? yes Onset: Gradual Duration: day(s): Timing: remote history Injury Environment: home Severity: moderate HPI: Patient is a 56-year-old male with history of pulmonary embolus, "gallbladder attack", kidney stones presenting to the emergency Department chief complaint of generalized malaise, fevers up to 103 and dizziness that started last night. Also associated decreased by mouth intake. Mild nausea without vomiting. No sick contacts or recent travel. He was hospitalized 2 months ago for the pulmonary embolus and they placed a stent in his gallbladder to help with the stones that were in the gallbladder. He called his GI doctor this morning who told him to come into for evaluation. Patient denying any abdominal pain. Denies any change in bowel habits. Last bowel movement was 2 days ago and normal. No blood in the stool. Denies any urinary frequency urgency or dysuria. No back pain. Denies any headaches. No visual changes. He did not get the flu vaccine this year. He has been able to drink water since onset of symptoms but really was unable to eat dinner last night secondary to nausea and malaise. (RALPH LLANES) Past History Travel History Traveled to [place] past 21 day No Medical History Any Pertinent Medical History? 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 No (RALPH LLANES) Review of Systems Review of Systems Constitutional: Reports: fever, malaise. Comments Review of systems: See HPI, All other systems negative. Constitutional, no weight loss HEENT: No visual changes no sore throat no congestion Cardiovascular: No chest pain ,palpitation , orthopnea or ankle swelling Skin, no jaundice no rashes Respiratory: No dyspnea cough sputum or hemoptysis GI: no vomiting : No dysuria No hematuria Muscle skeletal: no back pain, no neck pain, Neurologic: No numbness no confusion, no headaches Psych: No stress anxiety or depression,. Heme/endocrine: No bruising no bleeding no polyuria or polydipsia Immunology: No splenectomy or history of AIDS (RALPH LLANES) Physical Exam Physical Exam General Appearance: well developed/nourished, no apparent distress, alert, awake , comfortable Comments: Well-developed well-nourished person in no acute distress HEENT: Normal EENT exam, extraocular motion intact, no nystagmus. Pupils equally round and reactive to light and accommodation. Nose is atraumatic. External auditory canal and Tympanic membranes clear. Pharynx normal. No swelling or edema. Very dry oral mucosa. Neck: Supple, no lymphadenopathy, normal range of motion without pain or tenderness, negative meningeal signs. Back: Nontender, no CVA tenderness. Full range of motion Cardiovascular: Regular rate and rhythms no murmurs rubs or gallops, normal JVP Respiratory: Chest nontender. No respiratory distress.breath sounds clear to auscultation bilaterally Abdomen: Soft, nontender nondistended, no appreciable organomegaly. Normal bowel sounds. No ascites. Negative De La Cruz sign. No rebound or guarding. Extremity: No edema, no calf tenderness to palpation, normal and equal pulses. Neuro: Alert oriented x3, motor sensory normal, cranial nerves II through XII grossly intact. Skin: No appreciable rash on exposed skin, skin is warm and dry. Psych: Mood and affect is normal, memory and judgment is normal. Core Measures ACS in differential dx? No CVA/TIA Diagnosis: No Severe Sepsis Present: Yes BC x2: Yes Lactic Acid x2: Yes IV ABX Broad Spectrum: Yes NS/LR Started: Yes Septic Shock Present: No (BARBIE PARISH,RALPH) Progress Differential Diagnoses I considered the following diagnoses in my evaluation of the patient: :: CHOLANGITIS, cholecystitis, influenza, dehydration, electrolyte abnormality, choledocholithiasis, cholelithiasis Plan of Care: Orders Procedure Date/time Status Discharge Patient 09/17 UNK Active Laboratory Tests 09/17/16 0640: Total Bilirubin 0.7, Direct Bilirubin 0.4, AST 42, ALT 84 H, Alkaline Phosphatase 61, Total Protein 4.7 L, Albumin 2.4 L, PT 18.4 H, INR 1.76 H Diagnostic Imaging: Viewed by Me: CT Scan. Discussed w/RAD: CT Scan. Radiology Impression: PATIENT: LALIT ALMARAZ PRESENT AGE: 56 PATIENT ACCOUNT NO: [id number] : 61 LOCATION: [facility] ORDERING PHYSICIAN: RALPH PARISH SERVICE DATE: 09/15/168767 EXAM TYPE: CAT - CT ABD & PELVIS W IV CONTRAST EXAMINATION: CT ABDOMEN AND PELVIS WITH CONTRAST CLINICAL INFORMATION: Fever and chills. Evaluate for cholecystitis. COMPARISON: Previous abdominal ultrasound 07/03/[address] of the abdomen 07/02/2016. TECHNIQUE: Multidetector volumetric imaging was performed of the abdomen and pelvis before and after the IV administration of 98 mL of Optiray 320 intravenous contrast. Sagittal and coronal reformatted images were obtained on the technologist's workstation. DLP: 476 mGy-cm FINDINGS: LUNG BASES: The visualized lung bases are unremarkable. LIVER, GALLBLADDER, AND BILIARY TREE: The liver is normal appearing. No intrahepatic biliary duct dilatation is seen. There is a new plastic internal stent in the distal common bile duct. The distal common bile duct is dilated, measuring 1.6 cm. No common bile duct stone is seen by CT. The gallbladder is upper normal in size, measuring 4 x 9 cm in transverse and AP dimension. There are echogenic densities seen dependently in the gallbladder questionable for gallstones. No gallbladder wall thickening or pericholecystic fluid to suggest acute cholecystitis is seen by CT. PANCREAS: Unremarkable. SPLEEN: Unremarkable. ADRENAL GLANDS: Unremarkable. KIDNEYS AND URETERS: The kidneys are normal in size, shape, and attenuation. No hydronephrosis, hydroureter, or calculi seen. No perinephric stranding. BLADDER: Unremarkable. GASTROINTESTINAL TRACT: There is evidence of diverticulosis. Small and large bowel is otherwise normal. The appendix is normal. ABDOMINAL WALL: No significant hernia is appreciated. LYMPH NODES: Normal. VASCULAR: Unremarkable. PELVIC VISCERA: Unremarkable. OSSEOUS STRUCTURES : There are degenerative changes of the spine. There is an old-appearing right 11th anterior rib fracture. IMPRESSION: Upper normal size gallbladder. Increased attenuation in the gallbladder, likely corresponding to known gallstones. No CT evidence of acute cholecystitis. New internal plastic stent in the distal common bile duct. There is mild dilatation of the distal common bile duct measuring 1.6 cm. No common bile duct stone is seen by CT. Diverticulosis. Initial ED EKG: NSR Comments: 09/15/2016 11:45:02 AM on arrival patient is afebrile in no acute distress with no reproducible abdominal pain on exam. Per family this is exactly how he presented the last time when he was diagnosed with a "gallbladder attack". Patient reports febrile of 103 this morning. Did not take anything to help with his fever prior to arrival. Patient does not want any pain medications at this time. IV fluids initiated for hydration secondary dry oral mucosa and decreased by mouth intake. Considering: Dryness, cholecystitis, other viral process. Due to the nonspecific nature of patient's symptoms patient will go for CT of abdomen. 09/15/2016 2:06:02 PM patient informed of all of her results and imaging study results. Dr. Mcmanus notified and spoke with Dr. Miguel. Patient will be admitted, will need ERCP to rule out cholangitis. Patient medicated with IV Unasyn fluids are continuing to infuse. (RALPH LLANES) Departure Departure Time of Disposition: 1411 Disposition: STILL A PATIENT Condition: Stable Clinical Impression Primary Impression: Cholangitis Referrals: HUI THOMAS MD (PCP/Family) Departure Forms: Customer Survey General Discharge Information Prescriptions: Current Visit Scripts Amoxicillin/Potassium Clav (Augmentin 875-125 Tablet) 1 TAB PO BID #15 TAB Take first dose tonight. Admission Note Spoke With: MOHINDER MOON MD Documentation of Exam: Documentation of any treatments & extenuating circumstances including Concerns Regarding Discharge (functional status, medication knowledge or non-compliance, living conditions, etc.) that warrant an admission rather than observation: Patient requiring GI intervention for ERCP for questionable cholangitis. Nothing by mouth status. IV fluids, IV antibiotics, IV antipyretics. Discharge at this time would be medically harmful which could lead to sepsis and . (RALPH LLANES) PA/NETWORK SECURITY CONSULTANT Co-Sign Statement Statement: ED Attending supervision documentation- [X] I saw and evaluated the patient. I have also reviewed all the pertinent lab results and diagnostic results. I agree with the findings and the plan of care as documented in the PA's/NETWORK SECURITY CONSULTANT's documentation. [X] I have reviewed the ED Record and agree with the PA's/NETWORK SECURITY CONSULTANT's documentation. [] Additions or exceptions (if any) to the PAs/NETWORK SECURITY CONSULTANT's note and plan are summarized below: [] (RUTH SU,TOMASA Worthington) Critical Care Note Critical Care Note Critical Care Time: 30-74 min (RALPH LLANES) (RALPH LLANES) PA/NETWORK SECURITY CONSULTANT Co-Sign Statement Statement: ED Attending supervision documentation- [X] I saw and evaluated the patient. I have also reviewed all the pertinent lab results and diagnostic results. I agree with the findings and the plan of care as documented in the PA's/NETWORK SECURITY CONSULTANT's documentation. [X] I have reviewed the ED Record and agree with the PA's/NETWORK SECURITY CONSULTANT's documentation. [] Additions or exceptions (if any) to the PAs/NETWORK SECURITY CONSULTANT's note and plan are summarized below: [] (RUTH SU,TOMASA Worthington)
--- NOTE | 2016-09-15 11:12 | NUR ---
JEM VALENTIN AT BEDSIDE FOR PT EVAL.
--- NOTE | 2016-09-15 11:43 | NUR ---
BLOOD DRAWN AND SENT TO LAB-[facility],1ST BC. IV EST, NS INFUSING PER EMAR. EKG IN PROGRESS.
[2016-09-15 11:45] LABS: ABSOLUTE BASOPHIL COUNT 0 /CUMM (0.0-0.2); ABSOLUTE EOSINOPHIL COUNT 0 /CUMM (0.0-0.7); ABSOLUTE GRANULOCYTE CT 17.4 /CUMM (1.4-6.5); ABSOLUTE LYMPH COUNT 0.5 /CUMM (1.2-3.4); ABSOLUTE MONOCYTE COUNT 0.5 /CUMM (0.10-0.60); BASOPHIL % 0.2 % (0.0-2.0); EOSINOPHIL % 0 % (0-5); MEAN CORPUSCULAR HGB 32.8 PG (27.0-31.0); MEAN CORPUSCULAR HGB CONC 34.4 G/DL (33.0-37.0); MEAN CORPUSCULAR VOLUME 95.4 FL (80.0-94.0); MEAN PLATELET VOLUME 8.1 FL (7.4-10.4); PLATELET COUNT 179 /CUMM (130-400); RBC DISTRIBUTION WIDTH 13.5 % (11.5-14.5); RED BLOOD CELL CT 4.72 /CUMM (4.70-6.10); WHITE BLOOD CELL COUNT 18.5 /CUMM (4.8-10.8)
[2016-09-15] MEDS ORDERED: COUMADIN7.5 M1 PO (11:57)
--- NOTE | 2016-09-15 12:38 | NUR ---
CRITICAL TEST RESULTS [id number] LALIT ALMARAZ 56 M TESTS AND RESULTS: LACTIC ACID 2.3 Results received and read back by: VEDA LINK Results received date and time: 09/15/16 1238 The following provider was notified of the results, and read the results back: JEM VALENTIN Notified date and time: 09/15/16 at 1238
--- NOTE | 2016-09-15 13:04 | NUR ---
UNASYN AND 2ND NS INFUSING PER EMAR.
--- NOTE | 2016-09-15 13:05 | NUR ---
PT TO CAT SCAN BY STRETCHER.
[2016-09-15 13:08] LABS: PT 19.7 SEC (9.4-12.5); PTT 31 SEC (25-37)
--- NOTE | 2016-09-15 13:16 | NUR ---
PT RETURNED FROM CAT SCAN. FLU SWAB OBTAINED AND SENT TO LAB.
--- NOTE | 2016-09-15 14:19 | NUR ---
TEMP 101.7, JEM VALENTIN MADE AWARE, OFIRMEV INFUSING PER EMAR.
--- NOTE | 2016-09-15 14:39 | CT SCAN REPORT ---
EXAMINATION: CT ABDOMEN AND PELVIS WITH CONTRAST CLINICAL INFORMATION: Fever and chills. Evaluate for cholecystitis. COMPARISON: Previous abdominal ultrasound 07/03/[address] of the abdomen 07/02/2016. TECHNIQUE: Multidetector volumetric imaging was performed of the abdomen and pelvis before and after the IV administration of 98 mL of Optiray 320 intravenous contrast. Sagittal and coronal reformatted images were obtained on the technologist's workstation. DLP: 476 mGy-cm FINDINGS: LUNG BASES: The visualized lung bases are unremarkable. LIVER, GALLBLADDER, AND BILIARY TREE: The liver is normal appearing. No intrahepatic biliary duct dilatation is seen. There is a new plastic internal stent in the distal common bile duct. The distal common bile duct is dilated, measuring 1.6 cm. No common bile duct stone is seen by CT. The gallbladder is upper normal in size, measuring 4 x 9 cm in transverse and AP dimension. There are echogenic densities seen dependently in the gallbladder questionable for gallstones. No gallbladder wall thickening or pericholecystic fluid to suggest acute cholecystitis is seen by CT. PANCREAS: Unremarkable. SPLEEN: Unremarkable. ADRENAL GLANDS: Unremarkable. KIDNEYS AND URETERS: The kidneys are normal in size, shape, and attenuation. No hydronephrosis, hydroureter, or calculi seen. No perinephric stranding. BLADDER: Unremarkable. GASTROINTESTINAL TRACT: There is evidence of diverticulosis. Small and large bowel is otherwise normal. The appendix is normal. ABDOMINAL WALL: No significant hernia is appreciated. LYMPH NODES: Normal. VASCULAR: Unremarkable. PELVIC VISCERA: Unremarkable. OSSEOUS STRUCTURES: There are degenerative changes of the spine. There is an old-appearing right 11th anterior rib fracture. IMPRESSION: Upper normal size gallbladder. Increased attenuation in the gallbladder, likely corresponding to known gallstones. No CT evidence of acute cholecystitis. New internal plastic stent in the distal common bile duct. There is mild dilatation of the distal common bile duct measuring 1.6 cm. No common bile duct stone is seen by CT. Diverticulosis.
--- NOTE | 2016-09-15 14:48 | NUR ---
PT TO OR FOR ERCP BY STRETCHER.
--- NOTE | 2016-09-15 15:23 | NUR ---
REPORT RECIEVED FROM KELI. ASSUMED CARE OF PT. PT IN THE OR FOR ERCP
--- NOTE | 2016-09-15 15:32 | Cons- Gastroenterology ---
General Information and HPI Consulting Request Date of Consult: 09/15/16 (MD JODIE/GASTROENTEROLOGY) Requested By: MOHINDER MOON MD Reason for Consult: Ascending cholangitis Source of Information: patient History of Present Illness: The patient was admitted in June with fever and bacteremia secondary to cholangitis. He had concurrent pulmonary emboli, and was anticoagulated. ERCP demonstrated choledocholithiasis, and an endobiliary stent was inserted. It was anticipated that this stent would be exchanged in approximately September. However the patient developed malaise, lethargy, fever and chills beginning yesterday. He has not had jaundice, dark urine, abdominal pain, or nausea. In addition he denies cough, dysuria, rash, coryza/rhinitis, facial pain and headache, change in hearing or ear pain. Allergies/Medications Allergies: Coded Allergies: No Known Allergies (09/15/16) Home Med List: Warfarin Sodium (Coumadin) 7.5 MG TABLET 1 TAB PO 1700 BLOOD THINNER ( Reported) Current Medications: Current Medications Sig/Santiago Start time Last Medication Dose Route Stop Time Status Admin Acetaminophen 0 .STK-MED ONE 09/15 1417 DC IV Acetaminophen 1,000 MG ONCE ONE 09/15 1415 DC 09/15 N/A 1 UNIT IV 09/15 1429 1419 Ampicillin Sodium/ 0 .STK-MED ONE 09/15 1255 DC Sulbactam Sodium .ROUTE Ampicillin Sodium/ 3,000 MG ONCE ONE 09/15 1245 DC 09/15 Sulbactam Sodium IV 09/15 1314 1300 Sodium Chloride 100 ML Sodium Chloride 1,000 ML .Q8H 09/15 1445 AC IV Sodium Chloride 1,000 ML BOLUS ONE 09/15 1200 DC IV 09/15 1359 Sodium Chloride 1,000 ML BOLUS ONE 09/15 1200 DC 09/15 IV 09/15 1359 1300 Sodium Chloride 1,000 ML BOLUS ONE 09/15 1115 DC 09/15 IV 09/15 1314 1143 Past History Travel History Traveled to [place] past 21 day No Medical History Neurological: NONE EENT: NONE Cardiovascular: NONE Respiratory: pulmonary embolism Gastrointestinal: NONE Hepatic: cholelithiasis Renal: benign prost hyperplasia, nephrolithiasis Musculoskeletal: NONE Psychiatric: NONE Endocrine: NONE Blood Disorders: NONE Cancer(s): NONE 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 spouse, child Services at Home: None Primary Language: Zambian ETOH Use: occasional use Illicit Drug Use: denies illicit drug use Functional Ability ADLs Independent: dressing, eating, toileting, bathing. Ambulation: independent IADLs Independent: shopping, housework, finances, food prep, telephone, transportation , medication admin. Review of Systems Review of Systems Constitutional: Reports: chills, fever, malaise, weakness. EENTM: Denies: icterus, epistaxis. Cardiovascular: Denies: chest pain, edema, syncope. Respiratory: Denies: cough, short of breath. GI: Reports: see HPI. Genitourinary: Denies: dysuria, hematuria. Musculoskeletal: Denies: joint swelling, neck pain. Skin: Denies: jaundice, lesions. Neurological/Psychological: Denies: cognitive dysfunction, confusion. Hematologic/Endocrine: Denies: bruising, bleeding. Exam & Diagnostic Data Vital Signs and I&O Vital Signs Date Time Temp Pulse Resp B/P Pulse O2 O2 Flow FiO2 Ox Delivery Rate 09/15 1419 101.7 09/15 1413 101.7 76 16 102/46 98 Room Air 09/15 1032 99.2 108 20 108/70 95 Room Air Intake & Output 09/15 1600 09/15 0400 09/14 1600 09/14 0400 09/13 1600 09/13 0400 Intake Total 2000 Output Total Balance 2000 Intake, IV 2000 Patient 200 lb Weight Physical Exam: Well-developed well-nourished, in no apparent distress. Shaking chills are present. Alert and oriented with normal cognition. Skin normal without rash, lesion or jaundice. No adenopathy. Sclera anicteric. No oropharyngeal lesion. Neck supple, without thyromegaly. Heart regular rhythm without murmur. Lungs clear bilaterally. Abdomen is soft and nondistended with normal bowel sounds, and no tenderness, mass or organomegaly. Extremities without clubbing, cyanosis or edema. Pulses intact bilaterally. Results Pertinent Lab Results: Laboratory Tests 09/15 09/15 1250 1135 Chemistry Sodium (137 - 145 mmol/L) 132 L Potassium (3.5 - 5.1 mmol/L) 3.6 Chloride (98 - 107 mmol/L) 96 L Carbon Dioxide (22 - 30 mmol/L) 26 Anion Gap (5 - 16) 10 BUN (9 - 20 mg/dL) 19 Creatinine (0.7 - 1.2 mg/dL) 1.2 Estimated GFR (>60 ml/min) > 60 BUN/Creatinine Ratio (7 - 25 %) 15.8 Glucose (65 - 99 mg/dL) 120 H Lactic Acid (0.7 - 2.1 mmol/L) 2.3 H Calcium (8.4 - 10.2 mg/dL) 9.2 Total Bilirubin (0.2 - 1.3 mg/dL) 2.2 H Direct Bilirubin (< 0.4 mg/dL) 0.7 H AST (17 - 59 U/L) 107 H ALT (21 - 72 U/L) 152 H Alkaline Phosphatase (< 127 U/L) 87 Total Protein (6.3 - 8.2 g/dL) 6.7 Albumin (3.5 - 5.0 g/dL) 3.9 Globulin (1.9 - 4.2 gm/dL) 2.8 Albumin/Globulin Ratio (1.1 - 2.2 %) 1.4 Coagulation PT (9.4 - 12.5 SEC) 19.7 H INR (0.90 - 1.17) 1.89 H APTT (25 - 37 SEC) 31 Hematology CBC w Diff MAN DIFF ORDERED WBC (4.8 - 10.8 /CUMM) 18.5 H RBC (4.70 - 6.10 /CUMM) 4.72 Hgb (14.0 - 18.0 G/DL) 15.4 Hct (42 - 52 %) 45.0 MCV (80.0 - 94.0 FL) 95.4 H MCH (27.0 - 31.0 PG) 32.8 H RDW (11.5 - 14.5 %) 13.5 Plt Count (130 - 400 /CUMM) 179 MPV (7.4 - 10.4 FL) 8.1 Gran % (42.2 - 75.2 %) 94.0 H Lymphocytes % (20.5 - 51.1 %) 2.9 L Monocytes % (1.7 - 9.3 %) 2.9 Eosinophils % (0 - 5 %) 0 Basophils % (0.0 - 2.0 %) 0.2 Absolute Granulocytes (1.4 - 6.5 /CUMM) 17.4 H Segmented Neutrophils (42.2 - 75.2 %) 88 H Band Neutrophils (0.0 - 5.0 %) 8 H Absolute Lymphocytes (1.2 - 3.4 /CUMM) 0.5 L Monocytes (1.7 - 9.3 %) 4 Absolute Monocytes (0.10 - 0.60 /CUMM) 0.5 Absolute Eosinophils (0.0 - 0.7 /CUMM) 0 Absolute Basophils (0.0 - 0.2 /CUMM) 0 Platelet Estimate (ADEQUATE) VERIFIED BY SMEAR Normocytic RBCs VERIFIED Normochromic RBCs VERIFIED PUBS MCHC (33.0 - 37.0 G/DL) 34.4 Assessment/Plan Assessment/Recommendations: Ascending cholangitis (fever, leukocytosis, hyperbilirubinemia) likely secondary to occluded biliary stent. No other obvious source of infection. The patient has defervesced in the emergency room after receiving Unasyn. He is hemodynamically stable, and with normal cognition. Recommendations * Nothing by mouth * IV fluids * Continue IV Unasyn * Urgent ERCP with anticipated stent exchange (no sphincterotomy because of anticoagulation) * Continue anticoagulation; will discuss expected duration of anticoagulation with hematology. Copies To: WILLIAM SU,HUI; GIANCARLO SU,SALO Consult Acknowledgment - Thank you for your consult request.
--- NOTE | 2016-09-15 15:40 | Proc Note ERCP ---
ERCP Procedure Procedure Date: 09/15/16 GI Procedure(s): ERCP with stent skiver machine: Dayron Mcmanus M.D. ASA Classification: II Indications: Ascending cholangitis. The patient presented in June with ascending cholangitis/choledocholithiasis and pulmonary emboli, and was treated with ERCP/ stent insertion and anticoagulation. He now has fever, leukocytosis, hyperbilirubinemia. Instrument: duodenoscope Meds Received: MAC Patient's Tolerance: good Complications: none Procedure: The patient signed informed consent, was brought to the operating room, turned into the prone position and was medicated. Pulse oximetry, blood pressure and cardiac monitoring were performed continuously throughout the procedure. The Olympus high-definition V duodenoscope was inserted into the mouth and advanced to the duodenum. The stomach was not examined. The duodenum was normal. The plastic biliary stent was snared and removed. It was examined; there was distal occlusion. The papilla was normal. The common bile duct was cannulated and opacified. The pancreatic duct was not cannulated/injected. The cholangiogram demonstrated a normal CBD/CHD and hepatic ducts. The distal CBD was not well seen. Care was taken not to over inject because of cholangitis. A sphincterotomy was not performed because of anticoagulation. A 10 Nepali/7 cm Cotton-Xiao stent was inserted; there was abundant bile flow. Impression: * Occluded biliary stent, exchanged * No evident choledocholithiasis, although very distal CBD and not well opacified Recommendations: * Clear liquid diet * Continue intravenous antibiotics, pending blood cultures * Follow-up CBC and liver function tests in the morning * Please call with pain, fever, hypotension or any concern for continued/ progressive cholangitis CC: HUI THOMAS MD; GIANCARLO SU,[facility]
--- NOTE | 2016-09-15 16:09 | NUR ---
Emergency Dept [facility] Admit Note: To be admitted to [facility] by [facility] with CHOLANGITIS as the diagnosis, to [id number] location. Nursing Winchman/Crane Operator and admitting notified 09/15/16 at 1431
--- NOTE | 2016-09-15 16:23 | History & Physical ---
[place] SU[place] [place]22: General Information and HPI MD Statement: I have seen and personally examined LALIT ALMARAZ and documented this H&P. The patient is a 56 year old M who presented with a patient stated chief complaint of fever and lightheadedness. Source of Information: patient, old records Exam Limitations: no limitations History of Present Illness: Mr. Almaraz is a 56 y/o M with PMHx of acute cholangitis who presents with fever , chills, lightheadedness and decreased appetite x 1 day. Patient states that his symptoms started acutely yesterday. He checked his temperature at home and it was 103. He denies abdominal pain, jaundice, nausea or vomiting. Patient was recently admitted here at [facility] in June 2016 with acute cholangitis and right lower lobe pulmonary embolism, during which time he underwent ERCP with endobiliary stent placement with the anticipation that the stent would be exchanged in about 3 months. He was discharged on warfarin with plans for elective cholecystectomy after at least 3 months of anticoagulation. Since his discharge, patient has been following with authors motivational Dr. Mcmanus as well as center mgr Dr. Montejo. 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 Home Who Do You Live With? spouse, child Services at Home: None Primary Language: Mongolian Smoking Status: Never Smoked ETOH Use: occasional use Illicit Drug Use: denies illicit drug use Functional Ability ADLs Independent: dressing, eating, toileting, bathing. Ambulation: independent IADLs Independent: shopping, housework, finances, food prep, telephone, transportation , medication admin. 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 EENTM: Reports: no symptoms. Cardiovascular: Denies: chest pain. Respiratory: Denies: short of breath. GI: Denies: abdominal pain, nausea, changes in stool, vomiting. Genitourinary: Reports: no symptoms. Musculoskeletal: Reports: no symptoms. Skin: Denies: jaundice. Neurological/Psychological: Reports: no symptoms. Hematologic/Endocrine: Reports: no symptoms. Immunologic/Allergic: Reports: no symptoms. All Other Systems: Reviewed and Negative Exam & Diagnostic Data Last 24 Hrs of Vital Signs/I&O Vital Signs Date Time Temp Pulse Resp B/P Pulse O2 O2 Flow FiO2 Ox Delivery Rate 09/15 2008 103.1 09/15 1830 100.6 09/15 1714 99.1 75 20 92/42 89 Nasal 2.0L Cannula 09/15 1700 98 Nasal 2.0L Cannula 09/15 1700 99.1 77 20 92/42 98 Nasal 2.0L Cannula 09/15 1419 101.7 09/15 1413 101.7 76 16 102/46 98 Room Air 09/15 1032 99.2 108 20 108/70 95 Room Air Intake & Output 09/15 1600 09/15 0800 09/15 0000 Intake Total 2000 Output Total Balance 2000 Intake, IV 2000 Patient 90.718 kg Weight Physical Exam General Appearance Alert, Oriented X3, No Acute Distress Skin No Jaundice HEENT Atraumatic Neck Supple Cardiovascular Regular Rate, Normal S1, Normal S2 Lungs Clear to Auscultation Abdomen Soft, No Tenderness, Positive Bowel Sounds Extremities No Clubbing, No Cyanosis, No Edema Last 24 Hrs of Labs/Contreras: Laboratory Tests 09/15/16 2100: Urine Color YEL, Urine Clarity CLEAR, Urine pH 6.0, Ur Specific Morehouse 1.020, Urine Protein 30 H, Urine Ketones TRACE H, Urine Nitrite NEG, Urine Bilirubin NEG, Urine Urobilinogen 1.0, Ur Leukocyte Esterase NEG, Ur Microscopic SEDIMENT EXAMINED, Urine RBC FEW H, Urine WBC RARE, Granular Casts RARE H, Urine Hemoglobin TRACE-LYSED H, Urine Glucose NEG 09/15/16 1926: Lactic Acid 1.4 09/15/16 1250: PT 19.7 H, INR 1.89 H, APTT 31 09/15/16 1135: Anion Gap 10, Estimated GFR > 60, BUN/Creatinine Ratio 15.8, Glucose 120 H, Lactic Acid 2.3 H, Calcium 9.2, Total Bilirubin 2.2 H, Direct Bilirubin 0.7 H , AST 107 H, ALT 152 H, Alkaline Phosphatase 87, Total Protein 6.7, Albumin 3.9, Globulin 2.8, Albumin/Globulin Ratio 1.4, CBC w Diff MAN DIFF ORDERED, RBC 4.72, MCV 95.4 H, MCH 32.8 H, RDW 13.5, MPV 8.1, Gran % 94.0 H, Lymphocytes % 2.9 L, Monocytes % 2.9, Eosinophils % 0, Basophils % 0.2, Absolute Granulocytes 17.4 H, Segmented Neutrophils 88 H, Band Neutrophils 8 H, Absolute Lymphocytes 0.5 L, Monocytes 4, Absolute Monocytes 0.5, Absolute Eosinophils 0, Absolute Basophils 0, Platelet Estimate VERIFIED BY SMEAR, Normocytic RBCs VERIFIED, Normochromic RBCs VERIFIED, PUBS MCHC 34.4 Diagnostic Data EKG Results Normal sinus rhythm HR 89 [address]Tc [address] ABDOMEN/PELVIS: Upper normal size gallbladder. Increased attenuation in the gallbladder, likely corresponding to known gallstones. No CT evidence of acute cholecystitis. New internal plastic stent in the distal common bile duct. There is mild dilatation of the distal common bile duct measuring 1.6 cm. No common bile duct stone is seen by CT. Diverticulosis. Assessment/Plan Assessment: 56 y/o M with PMHx of ascending cholangitis s/p ERCP with endobiliary stent placement who is admitted for ascending cholangitis secondary to occluded biliary stent. #Severe sepsis secondary to ascending cholangitis: Met SIRS criteria for sepsis on admission with fever, leukocytosis and tachycardia. Qualifies for severe sepsis in the setting of hypotension and lactic acidosis. Lactic acid improved to 1.4 from 2.3 with normal saline boluses. Source of sepsis is ascending cholangitis 2/2 occluded biliary stent with hyperbilirubinemia and elevated LFTs. S/p urgent ERCP with stent exchange. * Gastroenterology following. Appreciate their recs. * Continue Unasyn IV 3 g Q6H. * Follow BCx. * Monitor CBC, BMP and LFTs. * Alert GI in the setting of symptoms suspicious for worsening cholangitis including fever, pain or hypotension. * Administer NS boluses as needed to maintain BP. * Monitor BP. Transfer to ICU in the setting of persistent hypotension. * Continue NS @ 125 cc/hr. #Right lower lobe PE: Diagnosed during previous admission in June 2016. Currently taking warfarin 7.5 mg PO daily. INR subtherapeutic at 1.89 on admission. * Start IV heparin for anticoagulation in the setting of subtherapeutic INR. * Continue prior to admission warfarin 7.5 mg PO daily. Administer daily dose this evening. * Recheck INR in the morning and continue to dose warfarin accordingly to keep INR between 2-3. * Consider hematology consult in the morning. #Acute hypoxemic respiratory failure: Patient has been requiring 2 L NC post- operatively. Not on oxygen at home. Most likely post-operative atelectasis. * CXR to rule out acute process. * Provide supplemental oxygen as needed to keep SpO2 > 92%. Diet: Clear liquid diet DVT PPx: IV Heparin and ALPs CODE: FULL As Ranked By This Provider Problem List: 1. Ascending cholangitis 2. S/P ERCP 3. Pulmonary embolism 4. Acute hypoxemic respiratory failure 5. Biliary stent obstruction 6. Severe sepsis Core Measures/Miscellaneous Acute Coronary Syndrome ACS Diagnosis: No Cerebrovascular Accident CVA/TIA Diagnosis: No Congestive Heart Failure CHF Diagnosis: No Venous Thromboembolism VTE Risk Factors: Acute medical illness, Age > 40 No [facility] VTE prophylaxis d/t: No contraindications No VTE Pharm Prophylaxis d/t: No contraindications VTE Diagnosis: Yes VTE Type: Pulmonary Embolism VTE Confirmed by (Test): CT CHEST ANGIOGRAM Comment: Old PE was diagnosed in 07/15. Severe Sepsis Severe Sepsis Present: No Septic Shock Septic Shock Present: No Miscellaneous Documentation Attending Case Discussed With: MOHINDER MOON MD Primary Care Physician: HUI THOMAS MD Patient sees these Specialists Dredge Lever Operator Dayron Mcmanus MD Fleet Service Manager Will Montejo MD Level of Patient Care: General Medicine JONA PARIKH 09/15/16 2834: Resident Review Statement Resident Statement: agreed with internet media planner Other Findings: He is 56-year-old man with past medical history of unprovoked pulmonary embolism on warfarin, recent history of gram-negative bacteremia secondary to cholangitis status post ERCP and intubated restent placement by Dr. Mcmanus in June 2016 was sent to ER by Dr. Mcmanus because patient was having fever 103 F, chills, feeling lightheaded and lethargic. On admission his temperature was 99.2 that went up to 101.7, pulse 108, respiratory rate 20, blood pressure 108/17 oxygen saturation 95% on room air. His labs were WBC count 18.5 with left shift, sodium 132, lactic acid 2.3, total bilirubin 2.2, direct bilirubin 0.7, AST 107, ALT 152. CT abdomen and pelvis with IV contrast was done that showed upper normal size gallbladder and increased attenuation in the gallbladder likely gallstones. No evidence of acute cholecystitis. No common bile duct stone was seen. He was seen by Dr. Mcmanus in ER and plan was to do emergent ERCP. In ER he was given IV fluids and Unasyn. He is now status post ERCP. He was found to have occluded biliary stent that was exchanged. Currently patient denies any pain, fever, chills, nausea, vomiting. He denies any change in the color of his stool or urine. He is feeling better. His most recent vitals are temperature 99.1, pulse 75, respiratory rate 20, blood pressure 92/42 and oxygen saturation 89% on 2 L. Problem list 1. Severe sepsis secondary to ascending cholangitis (fever, hypotension, tachycardia, leukocytosis with left shift, abnormal LFTs, elevated lactic acid) 2. Hyponatremia 3. History of unprovoked PE on Coumadin . INR today is 1.89 We are going to admit patient on general medicine floor for ascending cholangitis. Patient is status post ERCP and stent exchange. We will monitor his vitals closely. Continue IV fluids. We will continue IV antibiotics, Unasyn. Follow-up blood cultures. Follow further GI recommendations. Repeat CBC, BEP, LFTs in the morning. Call GI if patient deteriorates and transferred to ICU. Patient is not in much pain right now. Tylenol as needed for pain and fever. During ERCP sphincterotomy was not done because patient is on anticoagulation. Pain management pathway. We will continue Coumadin. Will check INR in the morning and dose Coumadin accordingly. Goal INR between 2-3. Pain management pathway. Clear liquid diet for now. Advance diet in the morning as tolerated. Full code. MOHINDER MOON MD 09/15/16 1836: Attending Review Statement Attending Statement Attending Statement: examined this patient, discuss w/resident/PA/BATCH ROOM TECHNICIAN, agreed w/resident/PA/BATCH ROOM TECHNICIAN, reviewed EMR data (avail) Attending Assessment/Plan: 56M PMH acute cholangitis in June 2016 s/p ERCP with stent placement and sphincterotomy, unprovoked acute pulmonary embolism during same admission treated with Coumadin, presenting today with fever 103, RUQ pain, scleral icterus, elevated bilirubin and transaminitis. WBC 19, INR 1.89. Went for ERCP today which found occluded biliary stent which was then exchanged. No complaints at this time. FEbrile 101 on admission, BP 92/50, HR 75, saturating 89% on 2L NC (not on oxygen at home). 1. Acute cholangitis 2. Obstructed biliary stent 3. Acute hypoxemic respiratory failure 4. Pulmonary embolism Plan - Admit to general medicine - Start Unasyn - Follow blood cultures - Follow GI recommendations - IV hydration, monitor BP. If persistently hypotensive, transfer to ICU for closer management - Supplemental oxygen as necessary - Obtain CXR - Start heparin drip due to subtherapeutic INR - Continue Coumadin - Hematology consult - Recheck LFTs, BEP, CBC tomorrow morning
--- NOTE | 2016-09-15 16:28 | NUR ---
PT WENT TO ROOM 207 FROM GI LAB. DID NOT RETURN TO ED AFTER PROCEDURE. REPORT CALLED TO JOSÉ ON . JOSÉ INFORMED OF NEED FOR REPEAT LACTIC ACID, NEEDS 3RD BOLUS OF NORMAL SALINE FOLLOWED BY NS AT 125CC/HR.
--- NOTE | 2016-09-15 16:29 | RADIOLOGY REPORT ---
EXAMINATION: XR BILIARY AND PANCREATIC ERCP CLINICAL INFORMATION: Fever. Jaundice. Stent replacement COMPARISON: None TECHNIQUE: Imaging assistance was provided during ERCP. FINDINGS: Endoscope present. Catheterization of the biliary tree. Partial opacification of the intra and extrahepatic bile ducts. Partially opaque biliary stent placed. FLUOROSCOPY TIME: 4 minutes 48 seconds NUMBER OF IMAGES: 7 images submitted IMPRESSION: Imaging assistance provided during ERCP. Biliary stent replacement
[2016-09-15 17:00] VITALS: BP 92/42
--- NOTE | 2016-09-15 17:00 | NUR ---
PT ARRIVED TO FLOOR FROM GI WITH DISTRIBUTION BEFORE THIS RN RECIEVED REPORT. PT WAS BROUGHT UP BY DISTRIBUTION A/OX3, 2L NC, TEMP 99.1, BP 92/42, O2 SAT 89%, PULSE 76. BOLUS WAS ORDERED AND ADMINISTERED. IV SITE INTACT, LUNGS SOUNDS CLEAR/DIM AT BASES, SKIN INTACT. WILL CONTINUE TO MOMITOR.
--- NOTE | 2016-09-15 17:00 | NUR ---
PT ARRIVED TO FLOOR IN [facility] WITH DISTRIBUTION, A/OX3, 2L NC, IV INTACT, BOLUS RUNNING PER MD ORDER, NO C/O PAIN,ORIENTED TO ROOM, MEDICAL TEAM IN ROOM, TEMP 99.1, BP 92/42, PULSE 76, RESP, 20, O2 98 ON 2L NC. THIRD BOLUS OF 1,000MLS AT 500MLS STARTED. WILL CONTINUE TO MONITOR.
[2016-09-15 17:14] VITALS: BP 92/42
--- NOTE | 2016-09-15 18:43 | Admission Certification ---
Admission Certification Certification Statement - As attending physician, I certify that at the time of - admission, based on clinical presentation, severity of - symptoms, need for further diagnostic testing and - therapeutic interventions, and risk of adverse outcomes - without in-hospital treatment, in my clinical assessment, - this patient requires an acute hospital stay for a minimum - of two nights or longer. I have also considered psychsocial - factors such as support system, advanced age, financial - issues, cognitive issues, and failed out-patient treatments, - past re-admission history, safety of patient, and lack of - compliance as applicable. Specific rationale supporting this admission is: Acute cholangitis requiring urgent ERCP
--- NOTE | 2016-09-15 22:06 | RADIOLOGY REPORT ---
EXAMINATION: CHEST 1 VIEW CLINICAL INFORMATION: Fever. COMPARISON: 07/02/2016. TECHNIQUE: An AP view of the chest is provided. FINDINGS: The cardiac silhouette is not enlarged. The mediastinal and hilar contours are unremarkable. There are neither pleural effusions nor pneumothoraces. There are no consolidations. The osseous structures are unremarkable. IMPRESSION: No evidence for acute disease.
[2016-09-15 23:04] VITALS: BP 108/55; BP 139/78
[2016-09-16 03:28] VITALS: BP 88/54
[2016-09-16 04:12] LABS: PTT 78 SEC (25-37)
[2016-09-16 04:56] VITALS: BP 90/58
--- NOTE | 2016-09-16 05:01 | NUR ---
LATE ENTRY FOR 09/15/162014 TEMP 103.[address] Veronica SOLIS SEE EMAR
--- NOTE | 2016-09-16 05:02 | NUR ---
0330 0330 PT WITH LOW BLOOD PRESSURE 88/54 HR 74. PT DOES NOT HAVE ANY C/O OF DIZZTNESS/LIGHTHEADED. SPOKE WITH DR Veronica SOLIS AND MOD DR Moe ARELLANO TO INFORM OF THIS BLOOD PRESSURE. AWAIT EMAR FOR ORDERS.
[2016-09-16 06:35] VITALS: BP 96/56
--- NOTE | 2016-09-16 07:07 | PN- Housestaff ---
[place] [place]707: Subjective Follow-up For: Acute cholangitis RLL PE Acute hypoxemic respiratory failure Subjective: No acute events overnight. Patient spiked fevers to 103.1 post-ERCP but defervesced and stayed afebrile overnight. Patient was seen and examined this morning. He feels good and has no complaints. BP has improved. He is no longer requiring oxygen and is satting well on room air. He tolerated clear liquids for breakfast and full liquids for lunch. Review of Systems Constitutional: Reports: no symptoms. Objective Last 24 Hrs of Vital Signs/I&O Vital Signs Date Time Temp Pulse Resp B/P Pulse O2 O2 Flow FiO2 Ox Delivery Rate 09/16 1432 98.9 78 20 138/68 96 09/16 0635 98.8 73 18 96/56 96 Nasal 2.0L Cannula 09/16 0456 68 90/58 09/16 0328 98.0 74 18 88/54 95 Nasal 2.0L Cannula 09/16 0000 95 Nasal 2.0L Cannula 09/15 2304 98.2 78 20 108/55 999 Nasal Cannula 09/15 2046 103.1 09/15 2009 103.1 09/15 1830 100.6 Intake & Output 09/16 1600 09/16 0800 09/16 0000 Intake Total 1820 2620 1120 Output Total 1400 Balance 1820 1220 1120 Intake, IV 1100 2500 1000 Intake, Oral 720 120 120 Number 1 1 1 Bowel Movements Output, Urine 1400 Patient 90.718 kg Weight Physical Exam General Appearance: Alert, Oriented X3, No Acute Distress HEENT: Atraumatic, Mucous Membr. moist/pink Neck: Supple Cardiovascular: Regular Rate, Normal S1, Normal S2 Lungs: Clear to Auscultation Abdomen: Soft, No Tenderness, Positive Bowel Sounds Extremities: No Clubbing, No Cyanosis, No Edema Current Medications: Current Medications Sig/Santiago Start time Last Medication Dose Route Stop Time Status Admin Acetaminophen 1,000 MG Q6P PRN 09/15 2030 DC 09/15 N/A 1 UNIT IV 6 Acetaminophen 650 MG Q8P PRN 09/15 1730 AC PO Ampicillin Sodium/ 3,000 MG Q6 09/15 1800 AC 09/16 Sulbactam Sodium IV 1321 Sodium Chloride 100 ML Heparin Sodium/ 25,000 UNIT Q24H 09/15 2000 DC 09/15 Dextrose IV 2114 Dextrose/Water 500 ML Sodium Chloride 1,000 ML BOLUS ONE 09/16 0400 DC 09/16 IV 09/16 0559 0402 Sodium Chloride 1,000 ML BOLUS ONE 09/15 2030 DC 09/15 IV 09/15 2229 2313 Sodium Chloride 1,000 ML BOLUS ONE 09/15 1730 DC 09/15 IV 09/15 1829 1958 Sodium Chloride 1,000 ML .Q8H 09/15 1445 DC 09/16 IV 1321 Warfarin Sodium 7.5 MG COUMADIN 1700 ONE 09/16 1700 DC PO 09/16 170 Warfarin Sodium 5 MG ONCE ONE 09/16 1999 DC PO 09/15 2000 Warfarin Sodium 7.5 MG ONCE ONE 09/16 1999 DC 09/15 PO 09/15 Last 24 Hrs of Lab/Contreras Results Last 24 Hrs of Labs/Mics: Laboratory Tests 09/16/16 1500: APTT Cancelled 09/16/16 0940: Anion Gap 6, Estimated GFR > 60, BUN/Creatinine Ratio 16.3, Total Bilirubin 0.6, Direct Bilirubin 0.4, AST 60 H, ALT 107 H, Alkaline Phosphatase 57, Total Protein 4.7 L, Albumin 2.4 L, PT 22.3 H, INR 2.14 H, CBC w Diff NO MAN DIFF REQ, RBC 4.03 L, MCV 96.3 H, MCH 32.6 H, RDW 13.6, MPV 8.1, Gran % 84.4 H, Lymphocytes % 7.4 L, Monocytes % 8.0, Eosinophils % 0.2, Basophils % 0 L, Absolute Granulocytes 9.0 H, Absolute Lymphocytes 0.8 L, Absolute Monocytes 0.9 H, Absolute Eosinophils 0, Absolute Basophils 0, PUBS MCHC 33.8 09/16/16 0320: APTT 78 H 09/15/16 2100: Urine Color YEL, Urine Clarity CLEAR, Urine pH 6.0, Ur Specific [place] 1.020, Urine Protein 30 H, Urine Ketones TRACE H, Urine Nitrite NEG, Urine Bilirubin NEG, Urine Urobilinogen 1.0, Ur Leukocyte Esterase NEG, Ur Microscopic SEDIMENT EXAMINED, Urine RBC FEW H, Urine WBC RARE, Granular Casts RARE H, Urine Hemoglobin TRACE-LYSED H, Urine Glucose NEG 09/15/16 1926: Lactic Acid 1.4 BCx (09/15/16): NGTD x 2 Orders Radiology Findings: No evidence for acute disease. Assessment/Plan Assessment: 56 y/o M with PMHx of ascending cholangitis s/p ERCP with endobiliary stent placement who is admitted for ascending cholangitis secondary to occluded biliary stent, s/p ERCP with stent exchange. #Severe sepsis secondary to ascending cholangitis: Secondary to occluded biliary stent s/p ERCP with stent exchange and on day 2 of Unasyn with defervescence, resolution of leukocytosis, stabilization of blood pressure and improvement of LFTs. BCx negative so far. Has tolerated full liquid diet. * Advance to regular diet for dinner. Potential discharge tomorrow if patient tolerates regular diet and remains stable. * IV fluids discontinued. * Continue Unasyn 3 g IV Q6H. * Switch antibiotics to Augmentin 875 mg PO BID tomorrow for a total of 10 days of antibiotics. * Repeat LFTs in the AM. * Encourage ambulation. #RLL PE: Diagnosed during previous admission in June 2016. Was taking warfarin 7.5 mg PO daily. Started on IV heparin on admission in view of subtherapeutic INR at 1.89. INR has improved to 2.14 today after receiving 7.5 mg of warfarin. * IV heparin discontinued. * Administer 7.5 mg of warfarin today. * Continue to monitor INR and adjust warfarin dose accordingly to keep INR between 2-3. * Patient advised to follow up with Dr. Montejo on discharge. #Acute hypoxemic respiratory failure: Resolved. Patient is currently comfortable and satting well on room air. Most likely post-operative atelectasis. CXR negative. * NTD. Diet: Regular Diet DVT PPx: Warfarin and ALPs CODE: FULL Problem List: 1. Biliary stent obstruction 2. Severe sepsis 3. Ascending cholangitis 4. Pulmonary embolism Pain Ratin Pain Location: N/A Pain Goal: Remain pain free Pain Plan: Tylenol 650 mg PO Q6H Tomorrow's Labs & Rationales: LFTs in the setting of ascending cholangitis with transaminitis INR to dose warfarin Discharge Plan Discharge Disposition: home Stable for Discharge? Yes Anticipated Discharge (Day): tomorrow KHOI FARMER MD 09/16/16 1151: Attending Review Statement Attending Statement Attending MD Statement: examined this patient, discuss w/resident/PA/COPY HOLDER, agreed w/resident/PA/COPY HOLDER, discussed with family, reviewed EMR data (avail), discussed with nursing, discussed with case mgmt, reviewed images, amended to note Attending Assessment/Plan: Patient seen and examined, feeling overall much better. Denies any abdominal pain. Patient now is afebrile overnight. White blood cell count has improved. Patient was started on clear liquid diet this morning which she has been tolerating well. Vital Signs Date Time Temp Pulse Resp B/P Pulse O2 O2 Flow FiO2 Ox Delivery Rate 09/16 0635 98.8 73 18 96/56 96 Nasal 2.0L Cannula 09/16 0456 68 90/58 09/16 0328 98.0 74 18 88/54 95 Nasal 2.0L Cannula 09/16 0000 95 Nasal 2.0L Cannula 09/15 2304 98.2 78 20 108/55 999 Nasal Cannula 09/15 2046 103.1 09/15 2009 103.1 09/15 1830 100.6 09/15 1714 99.1 75 20 92/42 89 Nasal 2.0L Cannula 09/15 1700 98 Nasal 2.0L Cannula 09/15 1700 99.1 77 20 92/42 98 Nasal 2.0L Cannula 09/15 1419 101.7 09/15 1413 101.7 76 16 102/46 98 Room Air on exam; aox3, nad. cv; s1,s2, rrr. resp; clear b/l abd; soft, nt, bs+ ext; no edema Laboratory Tests 09/16 09/16 0940 0320 Chemistry Sodium (137 - 145 mmol/L) 134 L Potassium (3.5 - 5.1 mmol/L) 3.6 Chloride (98 - 107 mmol/L) 105 Carbon Dioxide (22 - 30 mmol/L) 23 Anion Gap (5 - 16) 6 BUN (9 - 20 mg/dL) 13 Creatinine (0.7 - 1.2 mg/dL) 0.8 Estimated GFR (>60 ml/min) > 60 BUN/Creatinine Ratio (7 - 25 %) 16.3 Total Bilirubin (0.2 - 1.3 mg/dL) 0.6 Direct Bilirubin (< 0.4 mg/dL) 0.4 AST (17 - 59 U/L) 60 H ALT (21 - 72 U/L) 107 H Alkaline Phosphatase (< 127 U/L) 57 Total Protein (6.3 - 8.2 g/dL) 4.7 L Albumin (3.5 - 5.0 g/dL) 2.4 L Coagulation PT (9.4 - 12.5 SEC) 22.3 H INR (0.90 - 1.17) 2.14 H APTT (25 - 37 SEC) 78 H Hematology CBC w Diff NO MAN DIFF REQ WBC (4.8 - 10.8 /CUMM) 10.7 RBC (4.70 - 6.10 /CUMM) 4.03 L Hgb (14.0 - 18.0 G/DL) 13.1 L Hct (42 - 52 %) 38.8 L MCV (80.0 - 94.0 FL) 96.3 H MCH (27.0 - 31.0 PG) 32.6 H RDW (11.5 - 14.5 %) 13.6 Plt Count (130 - 400 /CUMM) 114 L MPV (7.4 - 10.4 FL) 8.1 Gran % (42.2 - 75.2 %) 84.4 H Lymphocytes % (20.5 - 51.1 %) 7.4 L Monocytes % (1.7 - 9.3 %) 8.0 Eosinophils % (0 - 5 %) 0.2 Basophils % (0.0 - 2.0 %) 0 L Absolute Granulocytes (1.4 - 6.5 /CUMM) 9.0 H Absolute Lymphocytes (1.2 - 3.4 /CUMM) 0.8 L Absolute Monocytes (0.10 - 0.60 /CUMM) 0.9 H Absolute Eosinophils (0.0 - 0.7 /CUMM) 0 Absolute Basophils (0.0 - 0.2 /CUMM) 0 PUBS MCHC (33.0 - 37.0 G/DL) 33.8 09/15 09/15 09/15 2100 1926 1250 Chemistry Lactic Acid (0.7 - 2.1 mmol/L) 1.4 Coagulation PT (9.4 - 12.5 SEC) 19.7 H INR (0.90 - 1.17) 1.89 H APTT (25 - 37 SEC) 31 Urines Urine Color (YEL,AMB,STR) YEL Urine Clarity (CLEAR) CLEAR Urine pH (5.0 - 8.0) 6.0 Ur Specific [place] (1.001 - 1.035) 1.020 Urine Protein (NEG,<30 MG/DL) 30 H Urine Ketones (NEG) TRACE H Urine Nitrite (NEG) NEG Urine Bilirubin (NEG) NEG Urine Urobilinogen (0.1 - 1.0 EU/dl) 1.0 Ur Leukocyte Esterase (NEG) NEG Ur Microscopic SEDIMENT EXAMINED Urine RBC (0 - 5 /HPF) FEW H Urine WBC (0 - 2 /HPF) RARE Granular Casts (NONE /LPF) RARE H Urine Hemoglobin (NEG) TRACE-LYSED H Urine Glucose (N MG/DL) NEG A/P; 56-year-old male with past medical history significant for BPH, nephrolithiasis, recent admission for acute cholangitis, recently diagnosed with pulmonary embolism about 2 months ago on Coumadin who was admitted with sepsis secondary to blocked biliary stent. Status post ERCP and exchange of the stent. Now remains afebrile. White blood cell count has improved. Patient was started on antibiotics. He was given liquid diet this morning and he has been tolerating that well. Diet will be advanced and later today IV fluids will be stopped if blood pressure remains stable. Continue IV antibiotics today and will likely switch her to oral tomorrow. Patient was given IV heparin because his INR was subtherapeutic but now that it is therapeutic, heparin drip will be stopped. If patient continues to do well and tolerates diet than likely tomorrow he can be discharged home. Encouraged abmbulation.
--- NOTE | 2016-09-16 07:30 | NUR ---
NURSING NOTE: PATIENT BP 96/56 @ 0630. RECIEVED REPORT @ 0730 AND NOTIFIED OVERLOCK COLLAR SETTER MIGDALIA. SN INFUSING @ 125ML/HR. PATIENT IS ASYMTOMATIC. ENCOURAGED PATIENT TO CALL FOR HELP IF HE WANTS O USE THE BATHROOM. RECHECK BP 110/60 @ 0930. AMBULATING TO BR WITH SUPERVISION WITHOUT ANY DIFFICULTY.
[2016-09-16 10:12] LABS: ABSOLUTE BASOPHIL COUNT 0 /CUMM (0.0-0.2); ABSOLUTE EOSINOPHIL COUNT 0 /CUMM (0.0-0.7); ABSOLUTE LYMPH COUNT 0.8 /CUMM (1.2-3.4); EOSINOPHIL % 0.2 % (0-5); MEAN PLATELET VOLUME 8.1 FL (7.4-10.4); PLATELET COUNT 114 /CUMM (130-400); RBC DISTRIBUTION WIDTH 13.6 % (11.5-14.5); RED BLOOD CELL CT 4.03 /CUMM (4.70-6.10)
[2016-09-16 10:14] LABS: ABSOLUTE MONOCYTE COUNT 0.9 /CUMM (0.10-0.60); BASOPHIL % 0 % (0.0-2.0); GRANULOCYTE % 84.4 % (42.2-75.2); MEAN CORPUSCULAR HGB 32.6 PG (27.0-31.0); MEAN CORPUSCULAR HGB CONC 33.8 G/DL (33.0-37.0); MEAN CORPUSCULAR VOLUME 96.3 FL (80.0-94.0)
[2016-09-16 10:16] LABS: HEMATOCRIT 38.8 % (42-52)
[2016-09-16 10:32] LABS: PT 22.3 SEC (9.4-12.5)
[2016-09-16 11:16] LABS: WHITE BLOOD CELL COUNT 10.7 /CUMM (4.8-10.8)
--- NOTE | 2016-09-16 13:04 | Patient Discharge Instructions ---
Discharge Instructions General Discharge Information You were seen/treated for: Ascending cholangitis You had these procedures: Endoscopic retrograde cholangio-pancreatography (ERCP) with stent exchange Watch for these problems: Fever or chills Abdominal pain Nausea or vomiting Dark urine and pale or soniya-colored stools Yellowing of your skin or eyes Special Instructions: Please see your primary care physician Dr. De La Cruz within one week of discharge. Please follow up with your judicial administrative assistant Dr. Mcmanus within two weeks of discharge for ascending cholangitis. Please follow up with your biogeographer Dr. Montejo within two weeks of discharge for pulmonary embolism. Please follow up with surgeon Dr. Rodriguez within two weeks of discharge for removal of your gallbladder. Please have your INR checked on Thursday (09/19/16) and forward results to Dr. De La Cruz. Diet Continue normal diet: Yes Activity Full Activity/No Limits: Yes Acute Coronary Syndrome Inclusion Criteria At DC or during hospital stay patient has or had the following: ACS DIAGNOSIS No Discharge Core Measures Meds if any: Prescribed or Continued at Discharge Meds if any: NOT Prescribed or Continued at Discharge Congestive Heart Failure Inclusion Criteria At DC or during hospital stay patient has or had the following: CHF DIAGNOSIS No Discharge Core Measures Meds if any: Prescribed or Continued at Discharge Meds if any: NOT Prescribed or Continued at Discharge Cerebrovascular accident Inclusion Criteria At DC or during hospital stay patient has or had the following: CVA/TIA Diagnosis No Discharge Core Measures Meds if any: Prescribed or Continued at Discharge Meds if any: NOT Prescribed or Continued at Discharge Venous thromboembolism Inclusion Criteria VTE Diagnosis Yes VTE Type Pulmonary Embolism VTE Confirmed by (Test) CT CHEST ANGIOGRAM (Old PE diagnosed in 06/2016) Discharge Core Measures - Per Current guidelines, there needs to be overlap - treatment for the first 5 days of Warfarin therapy. - If discharged on Warfarin prior to 5 days of - overlap therapy, the patient will need to be - assessed for post discharge needs including - *Post discharge parental anticoagulation - *Warfarin and/or parental anticoagulation education - *Follow up date to check INR post discharge At least 5 days overlap therapy as Inpatient No (Patient already on warfarin) Meds if any: Prescribed or Continued at Discharge Warfarin Yes Overlap Therapy Yes (Lovenox given prior to dc) Note: Overlap Therapy is Warfarin and Anticoagulant Meds if any: NOT Prescribed or Continued at Discharge
[2016-09-16 14:32] VITALS: BP 138/68
[2016-09-16] MEDS ORDERED: AUGMENTIN 875-1 EACH PO (14:53)
[2016-09-16 22:09] VITALS: BP 107/53
[2016-09-17 00:14] VITALS: BP 110/70
[2016-09-17 06:52] VITALS: BP 118/78
--- NOTE | 2016-09-17 07:07 | PN- Housestaff ---
CAYDEN SU,[facility] 09/17/16 0706: Subjective Follow-up For: Ascending cholangitis Pulmonary embolism Subjective: No acute events overnight. Patient seen and examined this morning. He feels much improved. He tolerated regular diet for dinner. He denies abdominal pain. Review of Systems Constitutional: Reports: no symptoms. Objective Last 24 Hrs of Vital Signs/I&O Vital Signs Date Time Temp Pulse Resp B/P Pulse O2 O2 Flow FiO2 Ox Delivery Rate 09/17 0830 96 Room Air 09/17 0652 98.9 68 20 118/78 91 09/17 0014 98.6 68 20 110/70 92 09/16 2209 98.9 72 18 107/53 90 Intake & Output 09/17 1600 09/17 0800 09/17 0000 Intake Total 560 700 100 Output Total Balance 560 700 100 Intake, IV 200 Intake, Oral 560 500 100 Physical Exam General Appearance: Alert, Oriented X3, No Acute Distress HEENT: Atraumatic, Mucous Membr. moist/pink Neck: Supple Cardiovascular: Regular Rate, Normal S1, Normal S2 Lungs: Clear to Auscultation Abdomen: Soft, No Tenderness, Positive Bowel Sounds Extremities: No Clubbing, No Cyanosis, No Edema Current Medications: Current Medications Sig/Santiago Start time Last Medication Dose Route Stop Time Status Admin Acetaminophen 650 MG Q8P PRN 09/15 1730 DCD PO Amoxicillin/ 875 MG Q12 09/17 1000 DCD 09/17 Clavulanate Potassium PO 1147 Ampicillin Sodium/ 3,000 MG Q6 09/15 1800 DC 09/17 Sulbactam Sodium IV 0658 Sodium Chloride 100 ML Enoxaparin Sodium 135 MG ONCE ONE 09/17 1030 DC 09/17 SC 09/17 1031 1144 Patient Medication 1 ED .STK-MED ONE 09/17 1403 DC Teaching ED 09/17 1404 Sodium Chloride 1,000 ML .Q8H 09/15 1445 DC 09/16 IV 1321 Warfarin Sodium 10 MG ONCE ONE 09/17 1030 DC 09/17 PO 09/17 1031 1146 Warfarin Sodium 7.5 MG COUMADIN 1700 ONE 09/16 1700 DC 09/16 PO 09/16 1701 1725 Last 24 Hrs of Lab/Contreras Results Last 24 Hrs of Labs/Mics: Laboratory Tests 09/17/16 0640: Total Bilirubin 0.7, Direct Bilirubin 0.4, AST 42, ALT 84 H, Alkaline Phosphatase 61, Total Protein 4.7 L, Albumin 2.4 L, PT 18.4 H, INR 1.76 H BCx (09/15/16): NGTD x2 Assessment/Plan Assessment: 56 y/o M with PMHx of ascending cholangitis s/p ERCP with endobiliary stent placement who is admitted for ascending cholangitis secondary to occluded biliary stent, s/p ERCP with stent exchange. #Severe sepsis secondary to ascending cholangitis: Secondary to occluded biliary stent s/p ERCP with stent exchange and 3 days of Unasyn with significant clinical improvement. Remains afebrile. LFTs have further improved today. Has been tolerating regular diet. * Discharge home today with GI follow up. * Outpatient referral given for general surgeon Dr. Rodriguez for gallbladder removal. * Discontinue IV Unasyn. Switch to Augmentin 875 mg PO BID for a total of 10 days of antibiotics. Administer first dose before discharge. #PE: Diagnosed during previous admission in June 2016. INR subtherapeutic at 1.76 today despite receiving warfarin for the past two days. * Give Lovenox 135 mg (1.5 mg/kg) x1 dose before discharge in view of subtherapeutic INR. * Administer 10 mg of warfarin before discharge today. Continue prior to admission warfarin 7.5 mg PO daily tomorrow. * Patient instructed to have INR checked two days after discharge (09/19/16) and forward results to PCP so that warfarin dose can be adjusted accordingly. * Patient advised to follow up with ballaster Dr. Montejo on discharge. Diet: Regular Diet DVT PPx: Warfarin and ALPs CODE: FULL Problem List: 1. Ascending cholangitis 2. S/P ERCP 3. Pulmonary embolism 4. Subtherapeutic international normalized ratio (INR) 5. Severe sepsis Pain Ratin Pain Location: N/A Pain Goal: Remain pain free Pain Plan: Tylenol 650 mg PO Q8H Tomorrow's Labs & Rationales: None Discharge Plan Discharge Disposition: home Stable for Discharge? Yes Anticipated Discharge (Day): today KHOI FARMER MD 09/17/16 1207: Attending Review Statement Attending Statement Attending MD Statement: examined this patient, discuss w/resident/PA/SNUFF GRINDER AND SCREENER, agreed w/resident/PA/SNUFF GRINDER AND SCREENER, reviewed EMR data (avail), discussed with nursing, discussed with case mgmt, amended to note Attending Assessment/Plan: Patient seen and examined, overall doing much better. Remains afebrile. Denies any pains or aches and was able to tolerate diet. Vital signs are stable and on abdominal exam there is no tenderness. Labs show that patient's LFTs are improving. INR is slightly subtherapeutic today therefore will give him a dose of Lovenox 1.5 mg/kg 1 dose. He will receive a slightly higher dose of Coumadin today and then will continue with his scheduled dosing of 7.5 mg starting tomorrow. Repeat INR should be checked on 09/19/2016. Results should be faxed to patient's primary care doctor. Patient will be given referral to Dr. Rendon. Patient to follow-up with Dr. Hall from oncology for the follow-up of his pulmonary embolism. From medical standpoint he stable for discharge home today. He'll be discharged on Augmentin for a few days to complete the course of antibiotics for his cholangitis.
[2016-09-17 08:15] LABS: PT 18.4 SEC (9.4-12.5)
--- NOTE | 2016-09-17 13:13 | Discharge Summary ---
Visit Information Visit Dates Admission Date: 09/15/16 Discharge Date: 09/17/16 Hospital Course Course Attending Physician: KHOI FARMER MD Primary Care Physician: HUI THOMAS MD Other Care Providers: Bookstore Manager Gely Mcmanus MD Community Resource Officer Will Montejo MD Consulting Request: Consulting Specialty: Gastroenterology Consulting Physician: Gely Mcmanus MD Reason for Consult: Ascending cholangitis Hospital Course: Mr. Michel is a 56 y/o M with PMHx of ascending cholangitis s/p ERCP with stent placement in June 2016 with concurrent pulmonary emboli diagnosed at that time who presented with fever and lightheadedness x 1 day, but with no abdominal pain or jaundice. During previous admission in June 2016, he was discharged on warfarin with plans for stent exchange or elective cholecystectomy after at least 3 months of anticoagulation. On initial presentation, vitals were significant for Tmax 101.7, BP 108/70 which later dropped to 102/46 and heart rate 108. Labs were remarkable for WBC 18.5, lactic acid 2.3, total bilirubin 2.2, AST/ALT 107/152 and INR 1.89. Patient was fluid resuscitated with 1 L normal saline bolus x 2, given 1 dose of Unasyn and taken to the OR for emergent ERCP, which revealed occluded biliary stent that was successfully exchanged. He was subsequently admitted for sepsis secondary to ascending cholangitis. Below are the issues that were addressed during current admission: #Sepsis secondary to ascending cholangitis: Patient met SIRS criteria for sepsis on admission with fever, leukocytosis and tachycardia and qualified for severe sepsis in the setting of hypotension and lactic acidosis, with lactic acid later improving to 1.4 with aggressive fluid resuscitation. Post-ERCP, patient continued to spike fevers to 103.1 and was hypotensive to 92/42. He was continued on IV fluids and Unasyn overnight with defervescence, normalization of blood pressures and resolution of leukocytosis and hyperbilirubinemia. Diet was advanced gradually. Blood cultures remained negative. On day of discharge, patient was symptom-free and tolerating regular diet. LFTs had improved almost back to baseline. * Patient was discharged on Augmentin 875 mg PO BID to complete total of 10 days of antibiotics. * Patient was instructed to follow up with faro dealer Dr. Mcmanus as well as general surgeon Dr. Rodriguez for cholecystectomy. #Pulmonary embolism: Patient was started on IV heparin given subtherapeutic INR on admission. Warfarin was continued at its prior to admission dosing of 7.5 mg daily. However, on day of discharge, INR remained subtherapeutic at 1.76. Patient was given Lovenox 1.5 mg/kg x 1 dose as well as 10 mg of warfarin before discharge. * Patient was discharged on warfarin 7.5 mg PO daily. He was instructed to have INR checked two days after discharge and forward results to PCP so that warfarin dose can be adjusted accordingly. * Patient was advised to follow up with digital marketing officer Dr. Montejo on discharge. Allergies: Coded Allergies: No Known Allergies (09/15/16) Significant Procedures: ERCP with stent exchange (09/15/16) Disposition Summary Disposition Principal Diagnosis: Sepsis secondary to ascending cholangitis Additional Diagnosis: N/A Discharge Disposition: home or self care Discharge Instructions General Discharge Information Code Status: Full Code Patient's Diet: Regular Patient's Activity: Full Activity/No Limits Follow-Up Instructions/Appts: Please see your primary care physician Dr. Thomas within one week of discharge. Please follow up with your faro dealer Dr. Mcmanus within two weeks of discharge for ascending cholangitis. Please follow up with your digital marketing officer Dr. Montejo within two weeks of discharge for pulmonary embolism. Please follow up with surgeon Dr. Rodriguez within two weeks of discharge for removal of your gallbladder. Please have your INR checked on Thursday (09/19/16) and forward results to Dr. Thomas. Medications at Discharge Discharge Medications: Continue taking these medications: Warfarin Sodium (Coumadin) 7.5 MG TABLET 1 Tablet ORAL 5 PM Qty = 30 Instructions: Start taking tomorrow. Comments: Last Taken: 09/17/16 Time: 11:45 AM Start taking the following new medications: Amoxicillin/Potassium Clav (Augmentin 875-125 Tablet) 875 MG-125 MG TABLET 1 Tablet ORAL TWICE DAILY Qty = 15 No Refills Instructions: Take first dose tonight. Comments: Last Taken: 09/17/16 Time: 11:45 AM Copies To: AMY THOMAS MD, MD,KATHYA Esparza; GIANCARLO SU,[facility]OMONT HEALTHRadha MCMANUS MD,GELY Zamudio
== END 2016-09-17 13:14 | DRG 871 ==
LOC: ENRESERVTM → ENRESERVDT → ERH 10:04 → ERHI 14:09 → ENPENDDIS 14:09 → 2NB 14:09
PROVIDERS: Dermatology; Internal Medicine; Physician Assistant; ADMIT Internal Medicine
PROC: 0FPB8DZ Removal of Intraluminal Device from Hepatobiliary Duct, Via Natural or Artificial Opening Endoscopic (ICD-10-PCS; principal; 2016-09-15)
PROC: BF10YZZ Fluoroscopy of Bile Ducts using Other Contrast (ICD-10-PCS; principal; 2016-09-15)
PROC: 0F798DZ Dilation of Common Bile Duct with Intraluminal Device, Via Natural or Artificial Opening Endoscopic (ICD-10-PCS; principal; 2016-09-15)
DX: A41.9 Sepsis, unspecified organism (principal); I26.99 Other pulmonary embolism without acute cor pulmonale; J96.01 Acute respiratory failure with hypoxia; K83.0 Cholangitis; N40.0 Benign prostatic hyperplasia without lower urinary tract symptoms; R65.20 Severe sepsis without septic shock
CPT/HCPCS: 2NBP; 74177; 81001; 82436; 87040; 87804; 87804-59; 93005; 93010; 96374; J0131; J1610; J1644; J1650; J2250; J3010; J7060; Q9967

== ENCOUNTER 2017-12-06 10:20 | Emergency (ER) | payer OTHER ==
[~2017-12-06] VITALS: Ht 182.9 cm; Wt 90.7 kg
[~2017-12-06 10:20] MED LIST changes: +COUMADIN7.5 M1 PO
--- NOTE | 2017-12-06 11:03 | ED CARDIAC/CP/PALPITATIONS ---
History of Present Illness General Chief Complaint: Chest Pain Stated Complaint: CP Source: patient, old records Exam Limitations: no limitations Vital Signs & Intake/Output Vital Signs & Intake/Output Vital Signs Date Time Temp Pulse Resp B/P B/P Pulse O2 O2 Flow FiO2 Mean Ox Delivery Rate 12/06 1522 98.0 73 18 130/69 97 Room Air 12/06 1415 97.8 57 18 133/82 98 Room Air 12/06 1110 98 Room Air Room Air 12/06 1026 97.3 65 20 136/88 99 Room Air Allergies Coded Allergies: No Known Allergies (09/15/16) Reconcile Medications Saw [place] Fruit (Saw [place]) (Unknown Strength) CAPSULE (Unknown Dose) PO BID SUPPLEMENT (Reported) Triage Note: PT C/O CHEST TIGHTNESS X 2 HOURS. 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 PT DENIES SOB Triage Nurses Notes Reviewed? yes HPI: 57M PMH pulmonary embolism thought to be secondary to acute cholangitis in August 2016, initially on Coumadin but stopped by hematology, presenting with new onset acute chest pain that started at rest since this morning. Described as left sided, as if someone is squeezing and pressing on his chest, non-radiating, 5-6/ 10, started at rest, persistent for the last 4 hours, never had anything similar. Denies lightheadedness, dizziness, vision changes, palpitations, SOB, exertional dyspnea, abdominal pain, n/v/d, dysuria. No personal history of cardiac disease, never had a stress test or cath. No family history, does not smoke, no drug use, no dyslipidemia or DM. Past History Travel History Traveled to [place] past 21 day No Medical History Any Pertinent Medical History? 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 No Review of Systems Review of Systems Constitutional: Reports: no symptoms. EENTM: Reports: no symptoms. Respiratory: Reports: no symptoms. Cardiovascular: Reports: no symptoms. GI: Reports: no symptoms. Genitourinary: Reports: no symptoms. Musculoskeletal: Reports: no symptoms. Skin: Reports: no symptoms. Neurological/Psychological: Reports: no symptoms. Hematologic/Endocrine: Reports: no symptoms. Immunologic/Allergic: Reports: no symptoms. All Other Systems: Reviewed and Negative Physical Exam Physical Exam General Appearance: well developed/nourished, no apparent distress Head: atraumatic, normal appearance Eyes: Bilateral: normal appearance. Ears, Nose, Throat: hearing grossly normal Neck: normal inspection, full range of motion Respiratory: normal breath sounds, no respiratory distress Cardiovascular: regular rate/rhythm, 1/ systolic murmur heard best at LUSB Gastrointestinal: soft, non-tender Back: normal inspection, normal range of motion Extremities: normal inspection, normal range of motion Neurologic/Psych: awake, alert, oriented x 3, normal mood/affect Skin: intact, normal color, warm/dry Core Measures ACS in differential dx? Yes CVA/TIA Diagnosis No Sepsis Present: No Sepsis Focused Exam Completed? No Progress Differential Diagnosis: AMI, aortic dissection (`), atrial fibrillation, costochondritis, musculoskeletal pain, myocarditis, pericarditis, pulmonary embolism, unstable angina Plan of Care: Orders Procedure Date/time Status EKG 12/06 1558 Active TROPONIN LEVEL 12/06 1400 Complete EKG 12/06 1400 Active D-DIMER 12/06 1102 Complete TROPONIN LEVEL 12/06 1057 Complete COMPREHENSIVE METABOLIC PANEL 12/06 1057 Complete CBC WITHOUT DIFFERENTIAL 12/06 1057 Complete EKG 12/06 1021 Active Current Medications Sig/Santiago Start time Last Medication Dose Stop Time Status Admin Heparin Sodium 25,000 UNIT Q24H 12/06 1515 UNVr 12/06 (Porcine) 1534 (Heparin) Sodium Chloride 500 ML Nitroglycerin 0.5 GM Q6 12/06 1456 UNVr 12/06 (Nitro-Bid) 1500 Laboratory Tests 12/06/17 1400: Troponin I 0.24 *H 12/06/17 1100: Anion Gap 11, Estimated GFR > 60, BUN/Creatinine Ratio 17.8, Glucose 120 H, Calcium 9.5, Total Bilirubin 0.9, AST 28, ALT 36, Alkaline Phosphatase 73, Troponin I 0.02, Total Protein 6.6, Albumin 3.8, Globulin 2.8, Albumin/Globulin Ratio 1.4, D-Dimer High Sensitivty < 200, CBC w Diff NO MAN DIFF REQ, RBC 4.86, MCV 100.3 H, MCH 33.8 H, MCHC 33.7, RDW 12.4, MPV 7.9, Gran % 74.5, Lymphocytes % 15.2 L, Monocytes % 8.1, Eosinophils % 1.9, Basophils % 0.3, Absolute Granulocytes 6.1, Absolute Lymphocytes 1.2, Absolute Monocytes 0.7 H, Absolute Eosinophils 0.2, Absolute Basophils 0 Troponin positive. Started heparin drip, Plavix load, nitropaste. Dr. Bazzi consulted and saw patient. Patient will be transferred to [facility] for cardiac catheterization by Dr. Jacob Amado. Initial ED EKG: normal sinus rhythm, slight ST elevation in V4 Repeat EKG: unchanged Departure Departure Disposition: OTHER [facility] Condition: Stable Clinical Impression Primary Impression: NSTEMI (non-ST elevated myocardial infarction) Referrals: Mone De La Cruz MD (PCP/Family) Rose Mary SU,Walter Rosa Departure Forms: Customer Survey General Discharge Information Critical Care Note Critical Care Note Critical Care Time: 30-74 min
[2017-12-06 11:15] LABS: ABSOLUTE BASOPHIL COUNT 0 /CUMM (0.0-0.2); ABSOLUTE EOSINOPHIL COUNT 0.2 /CUMM (0.0-0.7); ABSOLUTE GRANULOCYTE CT 6.1 /CUMM (1.4-6.5); ABSOLUTE LYMPH COUNT 1.2 /CUMM (1.2-3.4); ABSOLUTE MONOCYTE COUNT 0.7 /CUMM (0.10-0.60); BASOPHIL % 0.3 % (0.0-2.0); EOSINOPHIL % 1.9 % (0-5); GRANULOCYTE % 74.5 % (42.2-75.2); HEMATOCRIT 48.7 % (42-52); MEAN CORPUSCULAR HGB 33.8 PG (27.0-31.0); MEAN CORPUSCULAR HGB CONC 33.7 G/DL (33.0-37.0); MEAN CORPUSCULAR VOLUME 100.3 FL (80.0-94.0); MEAN PLATELET VOLUME 7.9 FL (7.4-10.4); PLATELET COUNT 209 /CUMM (130-400); RBC DISTRIBUTION WIDTH 12.4 % (11.5-14.5); RED BLOOD CELL CT 4.86 /CUMM (4.70-6.10); WHITE BLOOD CELL COUNT 8.2 /CUMM (4.8-10.8)
--- NOTE | 2017-12-06 16:04 | Cons- Cardiology ---
General Information and HPI Consulting Request Requested By: Ankush Perez Yiannis Reason for Consult: Chest discomfort. Source of Information: patient, family, old records Exam Limitations: no limitations History of Present Illness: Mr. Jaylan Michel is a 57-year-old male with a history of provoked ( post procedural ERCP) pulmonary embolism for which she was previously anticoagulated who presented from his workplace after experiencing a "left of center" chest discomfort described as a "5-6/10", "knot" that began around 7:oo a.m. while he was at work. He sat down and the discomfort "backed off" to "2/10 " intensity, but did not completely resolve. Being concerned, he sought evaluation at the ED. He denies any history of coronary, valvular, dysrhythmic/conduction disease, or cardiomyopathy. He additionally denies any history of hypertension, dyslipidemia, diabetes mellitus, tobacco use, or strong family history of premature atherosclerotic disease. He was admitted to the (07/03-07/07/2016) with choledocholithiasis associated with cholangitis and gram-negative sepsis s/p ERCP complicated by acute segmental right pulmonary embolism for which she was placed on anticoagulation and acute kidney injury which responded to volume resuscitation. He was readmitted to the (09/15-09/17/2016) for sepsis secondary to ascending cholangitis and and was taken to the OR for emergent ERCP, which revealed occlusion of the previously 6 placed biliary stent and this was successfully exchanged and the sepsis successfully managed medically. He subsequently underwent laparoscopic cholecystectomy at [facility]. Allergies/Medications Allergies: Coded Allergies: No Known Allergies (09/15/16) Home Med List: Saw [place] Fruit (Saw [place]) (Unknown Strength) CAPSULE (Unknown Dose) PO BID SUPPLEMENT (Reported) Review of Systems Review of Systems: 14 point system review was obtained was noncontributory, other than as above. 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 spouse, child Services at Home: None Primary Language: [place] ETOH Use: occasional use Illicit Drug Use: denies illicit drug use Functional Ability ADLs Independent: dressing, eating, toileting, bathing. Ambulation: independent IADLs Independent: shopping, housework, finances, food prep, telephone, transportation , medication admin. Exam & Diagnostic Data Vital Signs and I&O Vital Signs Date Time Temp Pulse Resp B/P B/P Pulse O2 O2 Flow FiO2 Mean Ox Delivery Rate 12/06 1522 98.0 73 18 130/69 97 Room Air 12/06 1415 97.8 57 18 133/82 98 Room Air 12/06 1110 98 Room Air Room Air 12/06 1026 97.3 65 20 136/88 99 Room Air Intake & Output 12/06 1600 12/06 0800 12/06 0000 12/05 1600 12/05 0800 12/05 0000 Intake Total 0 Output Total 0 Balance 0 Intake, Oral 0 Output, Urine 0 Patient 200 lb Weight Weight Reported by Patient Measurement Method Physical Exam: Well-developed, well-nourished middle-aged male in no acute distress. Vital signs: See above. HEENT: Normocephalic, atraumatic, EOMI, moist mucous membranes. Neck: No JVD, no bruits. Lungs: Good auscultation bilaterally. Heart: S1, S2 with no murmur, gallop, or rub. PMI fifth ICS MCL. Abdomen: Soft, nontender, positive bowel sounds. Extremities: No edema. Peripheral pulses: Symmetrical and intact. Labs/Contreras Results: Laboratory Tests 12/06 12/06 1400 1100 Chemistry Sodium (137 - 145 mmol/L) 141 Potassium (3.5 - 5.1 mmol/L) 4.3 Chloride (98 - 107 mmol/L) 105 Carbon Dioxide (22 - 30 mmol/L) 25 Anion Gap (5 - 16) 11 BUN (9 - 20 mg/dL) 16 Creatinine (0.7 - 1.2 mg/dL) 0.9 Estimated GFR (>60 ml/min) > 60 BUN/Creatinine Ratio (7 - 25 %) 17.8 Glucose (65 - 99 mg/dL) 120 H Calcium (8.4 - 10.2 mg/dL) 9.5 Total Bilirubin (0.2 - 1.3 mg/dL) 0.9 AST (17 - 59 U/L) 28 ALT (21 - 72 U/L) 36 Alkaline Phosphatase (< 127 U/L) 73 Troponin I (<0.11 ng/ml) 0.24 *H 0.02 Total Protein (6.3 - 8.2 g/dL) 6.6 Albumin (3.5 - 5.0 g/dL) 3.8 Globulin (1.9 - 4.2 gm/dL) 2.8 Albumin/Globulin Ratio (1.1 - 2.2 %) 1.4 Coagulation D-Dimer High Sensitivty (0 - 243 ng/ml) < 200 Hematology CBC w Diff NO MAN DIFF REQ WBC (4.8 - 10.8 /CUMM) 8.2 RBC (4.70 - 6.10 /CUMM) 4.86 Hgb (14.0 - 18.0 G/DL) 16.4 Hct (42 - 52 %) 48.7 MCV (80.0 - 94.0 FL) 100.3 H MCH (27.0 - 31.0 PG) 33.8 H MCHC (33.0 - 37.0 G/DL) 33.7 RDW (11.5 - 14.5 %) 12.4 Plt Count (130 - 400 /CUMM) 209 MPV (7.4 - 10.4 FL) 7.9 Gran % (42.2 - 75.2 %) 74.5 Lymphocytes % (20.5 - 51.1 %) 15.2 L Monocytes % (1.7 - 9.3 %) 8.1 Eosinophils % (0 - 5 %) 1.9 Basophils % (0.0 - 2.0 %) 0.3 Absolute Granulocytes (1.4 - 6.5 /CUMM) 6.1 Absolute Lymphocytes (1.2 - 3.4 /CUMM) 1.2 Absolute Monocytes (0.10 - 0.60 /CUMM) 0.7 H Absolute Eosinophils (0.0 - 0.7 /CUMM) 0.2 Absolute Basophils (0.0 - 0.2 /CUMM) 0 Diagnostic Data EKG Results 12/06/2017: Sinus rhythm with minor, nonspecific ST segment elevation in diffuse leads. CXR Results 12/06/2017: No acute cardiopulmonary process. Other Results Echocardiogram 07/04/2016: -No significant valve abnormalities. -Normal global left ventricular size, wall thickness, systolic function with no obvious regional wall motion abnormalities. -Physiologic valvular regurgitation. -Left atrial size at the upper limits of normal. -Otherwise normal transthoracic echocardiogram. Assessment/Plan Assessment/Plan [id number] w/ hx of provoked (postsurgical) pulmonary embolism for which he was previously anticoagulated who presented from his workplace after experiencing "left of center" chest discomfort described as a "5-6/10 knot" that began around 7:00 a.m. while he was at work. He sat down and the discomfort "backed off to 2 /10" intensity, but did not completely resolve. His electrocardiogram revealed sinus rhythm and mild nondiagnostic concave upward, ST segment elevation in diffuse leads with some subtle reciprocal ST segment depression in leads I, aVL and his second troponin I level came back at 0.24 mg/dl after an initial troponin I of 0.02 mg/dl. He received ASA 325 mg 1 and had 1/2 inch of Nitropaste placed without improvement,. Recommendations: * Start unfractionated heparin per protocol. * Give clopidogrel 300 mg 1 now and an additional 300 mg prior to cardiac catheterization if this is deemed necessary. * Discussed Mr. Michel's presentation with our interventionalist, Elmer Amado MD, PhD and the plan will be to transfer Mr. Michel to [facility] if he does not respond to the IV heparin and clopidogrel within 20 minutes. * Repeat ECG. Addendum: * Medical management has not led to relief of his anginal symptoms and his ECG does not appear significantly changed. The plan is for transfer to [facility] for urgent cardiac catheterization. * Further recommendations will follow, Thank you. Consult Acknowledgment - Thank you for your consult request.
[2017-12-06] MEDS ORDERED: SAW PALMETTO450 M1 PO (16:17)
[2017-12-06 16:28] VITALS: BP 109/68
== END 2017-12-06 17:21 | disposition short-term general hospital (02) ==
LOC: ERH 10:20
PROVIDERS: Internal Medicine
DX: I21.4 Non-ST elevation (NSTEMI) myocardial infarction (principal); R07.9 Chest pain, unspecified
CPT/HCPCS: 93005; 93010; 96365; 99291; J1644